=== PATIENT | male | born 1930 | race Caucasian/White ===

== ENCOUNTER 2017-01-17 13:28 | Inpatient (IN) | payer MEDICARE, OTHER ==
[2017-01-17] MEDS ORDERED: NS 0.9% 1000 ML* 1,000 ML IV ONE (13:33)
[2017-01-17] MEDS ORDERED: Dextrose 50% Syringe 50 ML* 25 GM/50 ML SYRINGE IV PUSH ONE (13:35)
[2017-01-17] MEDS ORDERED: Dextrose 50% Syringe 50 ML* 25 GM/50 ML SYRINGE ONE (13:36)
--- NOTE | 2017-01-17 13:54 | RAD ---
INDICATION: Neurologic change. Code briggs. COMPARISON: None TECHNIQUE: Noncontrast axial source images were acquired from the skull base to the vertex. FINDINGS: Ventricles/sulci: There is cortical atrophy with compensatory dilatation of the CSF spaces. Brain parenchyma: There is periventricular and subcortical white matter change compatible with chronic ischemia. Intracranial hemorrhage:None. Extra-axial spaces: There are no abnormal extra axial fluid collections or evidence of extra-axial mass. Calvarium: There is no calvarial fracture or other calvarial abnormality. Scalp: There is no evidence of scalp or extracalvarial soft tissue abnormality. Paranasal sinuses/mastoid: The paranasal sinuses and mastoid air cells are clear. Other: None. IMPRESSION: CORTICAL ATROPHY WITH CHRONIC MICROVASCULAR ISCHEMIC CHANGES. NO ACUTE FINDINGS. Findings called to ED at 1350 hours
[2017-01-17] MEDS ORDERED: Alteplase* 100 MG VIAL ONE (13:56)
[2017-01-17 14:02] LABS: Albumin 4.4 g/dL (3.2-5.2); Calcium 9.9 mg/dL (8.6-10.3); EGFR African American 78.9 (>60); EGFR Non-African American 61.4 (>60); Globulin 3.6 g/dL (2-4); Potassium 4.1 mmol/L (3.5-5.0); Total Bilirubin 0.7 mg/dL (0.2-1.0)
[2017-01-17 14:05] LABS: Troponin I 0.06 ng/mL (<0.04)
[2017-01-17] MEDS ORDERED: Alteplase* 100 MG VIAL IV ONE (14:17)
--- NOTE | 2017-01-17 14:17 | RAD ---
INDICATION: Neurologic changes, code briggs. COMPARISON: Comparison is made with a prior chest x-ray study from January 25, 2009. TECHNIQUE: An AP view of the chest was obtained. FINDINGS: The heart is within normal limits in size. Mediastinal and hilar contours appear within normal limits. The lungs are clear. No pleural effusion is present. IMPRESSION: NO EVIDENCE FOR ACTIVE CARDIOPULMONARY DISEASE.
[2017-01-17] MEDS ORDERED: Alteplase* 50 MG VIAL IV ONE (14:18)
[2017-01-17 14:20] LABS: Hematocrit 45 % (42-52); Hemoglobin 15.3 g/dl (14.0-18.0); Mean Corpuscular HGB Conc 34 g/dl (31-36); Mean Corpuscular Hemoglobin 32 pg (27-31); Mean Corpuscular Volume 92 fL (80-94); Mean Platelet Volume 8 um3 (7.4-10.4); Red Blood Count 4.84 10^6/ul (4.0-5.4); Red Cell Distribution Width 13 % (10.5-15); White Blood Count 5.9 10^3/ul (3.5-10.8)
[2017-01-17 15:14] LABS: Urine Bacteria Absent (Absent); Urine Bilirubin Negative (Negative); Urine Glucose 1+(50 mg/dL) (Negative); Urine Nitrite Negative (Negative)
[2017-01-17] MEDS ORDERED: Iohexol 350* (CONTRAST) 500 ML MDV IV ONE (16:02)
[2017-01-17] MEDS ORDERED: Acetaminophen IV 1GM/100ML * 1,000 MG/100 ML VIAL IVPB PRN (16:30)
[2017-01-17] MEDS ORDERED: Labetalol IV* 5 MG/ML 20 ML VIAL IV PUSH PRN (16:40)
[2017-01-17] MEDS ORDERED: NS 0.45% 1000 ML BAG* 1,000 ML IV SCH (17:00)
--- NOTE | 2017-01-17 17:19 | ED ---
Edgar Tillman Benjamin, scribed for Kendrick Arenas MD on 01/17/17 at 1419 . Altered Mental Status - HPI Summary HPI Summary: 86yo male who reported had sudden onset of AMS, not making sense and slurring some words around 1pm at the parking lot, witnessed by his . Kalpana yadav was called at 1332. Pt denies any TIRADO. Limited HPI pt is in AMS. 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 Hx From Patient Unobtainable Due To: Altered Mental Status Onset/Duration: Suddenly - approx 1300 Character: Confusion Aggravating Factor(s): Nothing Alleviating Factor(s): Nothing Associated Signs And Symptoms: Positive: Negative - Allergies/Home Medications Allergies/Adverse Reactions: Allergies Allergy/AdvReac Type Severity Reaction Status Date / Time No Known Allergies Allergy Verified 01/17/17 13:34 Home Medications: Home Medications Finasteride TAB* [Proscar TAB*] 5 mg PO DAILY 01/17/17 [History Confirmed ] Levothyroxine TAB* [Synthroid TAB*] 75 mcg PO DAILY 01/17/17 [History Confirmed 01/17/17] Lisinopril TAB* [Prinivil TAB*] 10 mg PO DAILY 01/17/17 [History Confirmed 01/17] PMH/Surg Hx/FS Hx/Imm Hx Endocrine/Hematology History: Reports: Hx Thyroid Disease - TAKES RX Cardiovascular History: Reports: Hx Hypertension - TAKES RX GI History: Reports: Hx Gastroesophageal Reflux Disease - TAKES RX Musculoskeletal History: Reports: Hx Arthritis - HIPS, KNEES, GENERALIZED, Other Musculoskeletal History - RIGHT CARPAL TUNNEL Sensory History: Reports: Hx Contacts or Glasses - GLASSES Denies: Hx Hearing Aid Opthamlomology History: Reports: Hx Contacts or Glasses - GLASSES Neurological History: Reports: Other Neuro Impairments/Disorders - RIGHT CARPAL TUNNEL SYNDROME - Surgical History Surgery Procedure, Year, and Place: 2009 BACK SURGERY- [facility]. 1989' LAPAROSCOPIC HERNIA REPAIR- [place]. 1970 VASECTOMY- [place]. 4 ADENOIDECTOMY AND TONSILLECTOMY. [place] [facility] [place]est[place] Reactions: No Infectious Disease History: No Infectious Disease History: Denies: Traveled Outside the [place] in Last 30 Days - Family History Known Family History: Positive: Unknown - LEVEL 5 CAVEAT - AMS - Social History Occupation: Retired Lives: With Family Alcohol Use: Rare Substance Use Type: Reports: None Smoking Status (MU): Former Smoker Review of Systems - ROS Summary Review of Systems Summary: LEVEL 5 CAVEAT - AMS All Other Systems Reviewed And Are Negative: No Physical Exam Triage Information Reviewed: Yes Vital Signs On Initial Exam: Initial Vitals Temp Pulse Resp BP Pulse Ox 97.8 F 75 20 174/89 95 01/17/17 13:30 01/17/17 13:30 01/17/17 13:30 01/17/17 13:30 01/17/17 13:30 Vital Signs Reviewed: Yes Completion Of Physical Exam Limited Due To: Level 5 Appearance: Positive: Well-Appearing, No Pain Distress, Well-Nourished Skin: Positive: Warm, Skin Color Reflects Adequate Perfusion, Dry Head/Face: Positive: Normal Head/Face Inspection Eyes: Positive: Normal ENT: Positive: Normal ENT inspection Neck: Positive: Supple, Nontender Respiratory/Lung Sounds: Positive: Clear to Auscultation, Breath Sounds Present Cardiovascular: Positive: RRR, Pulses are Symmetrical in both Upper and Lower Extremities Abdomen Description: Positive: Nontender, Soft Bowel Sounds: Positive: Present Musculoskeletal: Positive: Strength/ROM Intact Neurological: Positive: Expressive Aphasia, Disoriented. Negative: Sensory/ Motor Intact, Alert, Oriented to Person Place, Time - Romulo Coma Scale Coma Scale Total: 13 Diagnostics - Vital Signs Vital Signs Temp Pulse Resp BP Pulse Ox 01/17/17 13:50 99 01/17/17 13:37 98.1 F 72 20 174/89 95 01/17/17 13:30 97.8 F 75 20 174/89 95 - Laboratory Lab Results: Lab Results 01/17/17 01/17/17 01/17/17 Range/Units 13:34 13:35 13:35 Sodium 138 (133-145) mmol/L Potassium 4.1 (3.5-5.0) mmol/L Chloride 103 (101-111) mmol/L Carbon Dioxide 28 (22-32) mmol/L Anion Gap 7 (2-11) mmol/L BUN 17 (6-24) mg/dL Creatinine 1.13 (0.67-1.17) mg/dL Est GFR ( Amer) 78.9 (>60) Est GFR (Non-Af Amer) 61.4 (>60) BUN/Creatinine Ratio 15.0 (8-20) Glucose 93 (70-100) mg/dL POC Glucose (mg/dL) 64 L (70-100) mg/dL Lactic Acid 1.5 (0.5-2.0) mmol/L Calcium 9.9 (8.6-10.3) mg/dL Total Bilirubin 0.70 (0.2-1.0) mg/dL AST 18 (13-39) U/L ALT 10 (7-52) U/L Alkaline Phosphatase 93 (34-104) U/L Troponin I 0.06 H* (<0.04) ng/mL Total Protein 8.0 (6.4-8.9) g/dL Albumin 4.4 (3.2-5.2) g/dL Globulin 3.6 (2-4) g/dL Albumin/Globulin Ratio 1.2 (1-3) Triglycerides 200 mg/dL Cholesterol 187 mg/dL LDL Cholesterol 121 mg/dL HDL Cholesterol 26.0 mg/dL Result Diagrams: 01/17/17 13:35 01/17/17 13:35 Lab Statement: Any lab studies that have been ordered have been reviewed, and results considered in the medical decision making process. - Radiology CXR Xray Interpretation: No Acute Changes Radiology Interpretation Completed By: Radiologist - ED physician has reviewed this radiology report and agrees. - CT CT Brain WO CT Interpretation: No Acute Changes - IMPRESSION: CORTICAL ATROPHY WITH CHRONIC MICROVASCULAR ISCHEMIC CHANGES. NO ACUTE FINDINGS. Findings called to ED at [address] Interpretation Completed By: Radiologist - ED physician has reviewed this radiology report and agrees. - EKG 1335. Cardiac Rate: NL - 70bpm EKG Rhythm: Sinus Rhythm Ectopy: None EKG Interpretation: Borderline T abnormalities in inferior leads. Altered Mental Statu Course/Dx - Course Course Of Treatment: Reviewed pts medication and allergy lists. Blood pressure noted. Code Yadav called at 1332. Discussed with Dr. Moon (Neurology) at 1337. DR MOON SAW PATIENT IN ED. ADMIT ICU. - Diagnoses Discharge Diagnoses: CVA (cerebral vascular accident) - Critical Care Time Critical Care Time: 30-74 min Discharge - Discharge Plan Condition: Stable Disposition: ADMITTED TO [facility] documentation as recorded by the scribeEdgar Benjamin accurately reflects the service I personally performed and the decisions made by me, Kendrick Arenas MD.
--- NOTE | 2017-01-17 17:28 | RAD ---
HISTORY: Speech difficulty, status post TPA administration COMPARISONS: Head CT dated January 17, 2017 TECHNIQUE: Multiple contiguous axial CT scans were obtained of the head and neck After the administration of nonionic intravenous contrast timed to the systemic arterial phase of contrast enhancement. Coronal and sagittal multiplanar reformations are submitted for review. Multiple 3-D maximum intensity projection reconstructions are also submitted for review. FINDINGS: CTA NECK: AORTIC ARCH: There is a bovine configuration, with the left common carotid artery originating from the brachiocephalic trunk. There is no ostial or proximal stenosis of the cephalic great vessels. The vessels are tortuous. RIGHT VERTEBRAL ARTERY: The right vertebral artery is patent along its course, without stenosis. LEFT VERTEBRAL ARTERY: The left vertebral artery is patent along its course, without stenosis. DOMINANCE: The left vertebral artery is dominant. RIGHT COMMON CAROTID ARTERY: The right common carotid artery is patent. The right carotid bifurcation occurs at C4-C5 RIGHT INTERNAL CAROTID ARTERY: There is atheromatous disease of the right carotid bifurcation, without right internal carotid artery stenosis by NASCET criteria. RIGHT EXTERNAL CAROTID ARTERY: The right external carotid artery is unremarkable. LEFT COMMON CAROTID ARTERY: The left common carotid artery is patent. The left carotid bifurcation occurs at C4 LEFT INTERNAL CAROTID ARTERY: There is atheromatous disease of the left carotid bifurcation, without left internal carotid artery stenosis by NASCET criteria. LEFT EXTERNAL CAROTID ARTERY: The left external carotid artery is unremarkable. VENOUS CIRCULATION: None SALIVARY GLANDS: The parotid glands, submandibular glands, sublingual glands are normal. NASAL CAVITY/NASOPHARYNX: The nasal cavity and nasopharynx are normal. ORAL CAVITY/OROPHARYNX: The oral cavity is obscured by streak artifact from dental amalgam. The visualized oral cavity and oropharynx are unremarkable. LARYNGEAL APPARATUS/HYPOPHARYNX: The laryngeal apparatus and hypopharynx are normal. UPPER AIRWAY/UPPER ESOPHAGUS: The visualized upper airway and esophagus are normal. LUNG APICES: The lung apices are clear. THYROID GLAND: The thyroid gland is diffusely heterogeneous and enlarged. LYMPH NODES: There is no lymphadenopathy by size criteria. BONES AND SOFT TISSUES: Degenerative changes are noted CTA HEAD: INTRACRANIAL CIRCULATION: There is multifocal moderate to severe stenosis of the basilar artery diffusely. Elsewhere, there is no aneurysm, vascular reformation, occlusion, or stenosis of the visualized intracranial reticulation. There is calcification of the cavernous segments of internal carotid arteries. The anterior communicating artery complex is clear. Bilateral posterior communicating arteries are identified. VENOUS CIRCULATION: The venous system is unremarkable. PERFUSION: There is no obvious parenchymal perfusion deficit. HEMORRHAGE/INFARCT: There is no hemorrhage or acute infarct. MASSES/SHIFT: There is no mass or shift. EXTRA-AXIAL SPACES: There are no extra-axial fluid collections. SULCI AND VENTRICLES: The sulci and ventricles are normal in size and position for the patient's stated age. CEREBRUM: There is hypoattenuation of the periventricular and subcortical white matter. BRAINSTEM: There are no focal parenchymal abnormalities. CEREBELLUM: There are no focal parenchymal abnormalities. PARANASAL SINUSES: The paranasal sinuses are clear. ORBITS: The orbits are unremarkable. BONES AND SOFT TISSUE: No bone or soft tissue abnormalities are noted. OTHER: There is no abnormal enhancement. IMPRESSION: 1. ATHEROMATOUS DISEASE. 2. NO INTERNAL CAROTID ARTERY STENOSIS BY NASCET CRITERIA. 3. 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 4. CHRONIC SMALL VESSEL ISCHEMIC CHANGE. 5. HETEROGENEOUS AND ENLARGED THYROID CPT II Codes: 3100F
[2017-01-17] MEDS: Labetalol IV* 5 MG/ML 20 ML VIAL IV PUSH PRN (18:30)
[2017-01-17] MEDS: niCARdipine 0.1MG/ML IVPREMIX* 20 MG/200 ML BAG IV SCH ×2 (18:49→23:07)
--- NOTE | 2017-01-17 22:41 | CONS ---
CONSULTATION REPORT: DATE OF CONSULT: 01/17/17 LOCATION: He is an 86-year-old gentleman currently in the ER to be transferred to the ICU . REASON FOR CONSULT: Acute stroke, status post tPA. HISTORY OF PRESENT ILLNESS: Mr. Hernandez is an 86-year-old gentleman with a history of hypertension, GERD, and some right hip pain, who presented to the hospital at 1 o'clock with acute onset of speech difficulties. His states that they were out this morning visiting some [employer], they were driving. At 1 o'clock, she noticed that he was having difficulty expressing what he wanted to say, he was confused and confabulating some. This did not improve, so she drove in directly to the ER. He arrived at 1330 and a Code Leif was called. He had a CT scan that showed no acute issues. No evidence of hemorrhage. I was called to the ER for further evaluation. At the time that I saw him, his initial NIH Stroke Scale was 7. he received 1 point for level of conscious commands, 2 points for the level of conscious questions, 1 point for visual, 1 point for motor drift in the right leg, 1 point for best language, and 1 point for extinction and inattention. Subsequent NIH done at 02:30, 30 minutes later, he got 2 points for level of consciousness questions, 1 point for visual, 1 point for best language, and 1 point for extinction for a total of 5. At that time, contraindications were reviewed and he had none. There were no exclusion criteria. I had a long discussion with his discussing the risks and benefits of tPA including the risk of bleeding in approximately 6 % of patients who receive the drug, half of these patients with serious bleeding . We discussed the fact that 1 out of every 3 patients given the drug shows improvement in brain function, in the case of a severe stroke or major stroke, 70% risk of bleeding after receiving intravenous tPA. We discussed the fact that research shows that for every 8 patients given the drug , one is spared suffering from severe disability and instead is able to live independently after his/her stroke, 1 in 3 patients given the drug shows improvement in brain function as a result of the drug. The understood the risks and benefits and signed the consent. The patient was unable to consent and tPA was started at 1436. Initial bolus of 7.8 mL was given followed by ____ _ infusion given. An urgent CTA of the head was ordered as well. My suspicion for a large vessel clot at the time of presentation was low given his findings. The patient was to be admitted to the ICU overnight for close monitoring per tPA protocol. PAST MEDICAL HISTORY: As above. PAST SURGICAL HISTORY: He has had right hip replaced. MEDICATIONS: His did not have specific list of medications, but notes that he is on metoprolol, lisinopril, and omeprazole at home. ALLERGIES: He has no known drug allergies. FAMILY HISTORY: Significant for father with lung cancer, sister with lung cancer, and mother with breast cancer. No history of early strokes or heart attacks. SOCIAL HISTORY: He smoked a pipe until he was 29 years old and then stopped, none since. He occasionally drinks wine. 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 REVIEW OF SYSTEMS: Review of systems in 12-organ systems was attempted, the patient was unable to communicate well and unable to answer my questions, but the states that he has not had any major health issues in the last week and has been feeling well otherwise. PHYSICAL EXAM: General: He is a well-nourished, well-developed gentleman, lying in his hospital bed. He is pleasant, well nourished, well groomed. HEENT : He is normocephalic, atraumatic. Sclerae are anicteric. Mucous membranes are moist. Oropharynx is clear. Nares are patent. Neck is supple. No thyromegaly. No carotid bruits. No meningismus. Chest: Clear to auscultation bilaterally. Cardiovascular: Regular rate and rhythm. Abdomen: Nontender and nondistended. Extremities: No clubbing, cyanosis, or edema was noted. His skin was warm and dry. On neurologic exam, he was awake and alert. He was oriented to person. His speech was nonfluent. He had an expressive and receptive aphasia. He was unable to name. He was unable to repeat. He was unable to pantomime. Cranial nerves: His pupils were equal, round, and reactive to light. There appeared to be a partial visual field cut on the right versus neglect. He did not blink to threat on the right in the upper and lower quadrants. He did blink to threat from the left side. Extraocular muscles were intact. Sensation of his face was difficult to assess, but appeared to be intact bilaterally. He did respond at all levels. His face was symmetric. There was no droop in the upper or lower face. His tongue was midline. His oropharynx was clear, palate was symmetric, difficult for him to comply with some of the motor exam. He would not shrug his shoulders or turn his head. His motor exam initially had some very mild drift in the right lower extremity. Subsequent testing showed no drift in all extremities. His strength was good 5/5 throughout. Tone and bulk were both normal. DTRs were 1 + at the biceps and brachioradialis, trace at the patella bilaterally, absent at the ankles, downgoing Babinski. [id number] and rapid alternating movements were difficult to assess, because he was not compliant with the examination, but he did not appear to have any ataxia when moving and at times would reach out for my finger without tremor. Sensation, he did withdraw and grimace to pain in all 4 extremities, but there was neglect on the right side. There was some extinction as well. He had some visual impersistence to the right and did not appear to recognize me on the right side. His gait was not tested at this time. DIAGNOSTIC STUDIES/LAB DATA: He had a CBC with diff that was essentially normal and platelets were 231. PT/INR of 17 and 0.95. His complete metabolic profile was essentially normal. Troponin I was 0.06. LDL cholesterol of 121, but is nonfasting; HDL of 26; cholesterol of 187; triglycerides are 200. Urine showed 1+ protein, 2+ blood, 2+ rbc's, and 1+ glucose. Initially on presentation, his glucose was 64. It subsequently improved to 93 after dextrose was given. He does not have a history of diabetes. CT scan of the head was done. I reviewed the films and the report showed cortical atrophy with chronic microvascular ischemic changes. No acute findings. I agree with those findings. There was no evidence of hemorrhage. ASSESSMENT AND PLAN: Mr. Hernandez is an 86-year-old gentleman, who came into the hospital with significant expressive and receptive aphasia, some neglect on the right side, possibly visual field cut on the right side as well. Initially scored a 7 on his NIH, 30 minutes later a 5, but he continued to have significant speech difficulty. I had a long discussion with the reviewing the risks and benefits of tPA and she agreed to the administration we started the bolus 1 hour and 36 minutes after arrival. CTA of the head was ordered. The patient was admitted to the hospital for additional stroke workup and for close monitoring in the ICU. My plan will be to get an MRI tomorrow afternoon for followup and to better assess the stroke. We will check blood work to rule out reversible causes of stroke. We will get an echocardiogram once he is out of the 24-hour window, we will resume antiplatelet. We will control blood pressure per protocol. Monitor blood sugars, monitor for any temperature elevations. I will continue to follow him closely and make further recommendations as necessary. Thank you for the opportunity to participate in his care. [id number]/[facility] #: [id number] YING
--- NOTE | 2017-01-17 23:56 | HP ---
ADMISSION HISTORY AND PHYSICAL: DATE OF ADMISSION: 01/17/17 ADMISSION DIAGNOSIS: Acute ischemic stroke. HISTORY OF PRESENT ILLNESS: The patient is an 86-year-old white male with a history of hypertension and hypothyroidism, who was brought to the emergency department today approximately 30 minutes after the acute onset of confusion and garbled speech. The patient was seen by the neurology service in the emergency department and was given thrombolytic therapy approximately 1 to 1-1/ 2 hours after the onset of symptoms. Following lytic therapy, the patient was brought to the intensive care unit for further monitoring. NIH stroke scale score was 7 in the emergency department. OUTPATIENT MEDICATIONS: 1. Levothyroxine 75 mcg p.o. daily. 2. Omeprazole 20 mg p.o. daily. 3. Lisinopril 10 mg p.o. daily. 4. Metoprolol 25 mg p.o. daily. 5. Finasteride 5 mg p.o. daily. ALLERGIES: No known drug allergies. REVIEW OF SYSTEMS: Unobtainable. PHYSICAL EXAMINATION GENERAL: On admission to the ICU, the patient was alert and breathing comfortably. VITAL SIGNS: Temperature 98.9 (temporal), blood pressure 148/86, heart rate 70 and regular, respirations 16 per minute and nonlabored, O2 saturation 94% on room air. HEENT: Pupils are mid position and briskly reactive. Corneal intact. Extraocular movements appeared full and there is no facial asymmetry. NECK: Supple and without masses. LUNGS: Clear to auscultation. CARDIAC EXAM: Revealed no murmurs or rubs. ABDOMEN: Nondistended and nontender. EXTREMITIES: Warm without cyanosis or edema. NEUROLOGIC EXAM: Limited neurologic exam. The patient moved all extremities. There was no apparent hemiparesis. Reflexes were down slightly throughout. ADMISSION LABORATORY DATA: Hemoglobin was 15, hematocrit 45, white count of 5.9, platelet count of 231. Electrolytes were normal. Glucose was initially 64 and repeat was 100 after one-half amp of D50. Lactic acid was 1.5. Troponin 0.06. Cholesterol was 187. LDL cholesterol was 121, triglycerides are 200. Albumin 3.6. Chest x-ray showed enlarged cardiac silhouette, but no pulmonary infiltrates. EKG showed no acute ST or T-wave changes. A CT scan of the head showed cortical atrophy with chronic microvascular ischemic changes. There were no acute findings. IMPRESSION: Acute stroke primarily involving speech areas in the left (dominant ) hemisphere, status/post thrombolytic therapy. The patient is hemodynamically and neurologically stable on admission to the ICU. MANAGEMENT PLAN: Standard management post lytic therapy, which includes maintaing BP below 180/100 with labetalol or nicardipine, if needed, aggressive antipyretic therapy to keep body temp below 100, and frequent neurologic checks to evaluate for signs of intracranial hemorrhage. The patient is being followed by the Neurology service. CRITICAL CARE TIME: 60 minutes (not including time spent speaking with family and Neurology consultation). [id number]/[facility] #: [id number] MTDD
[2017-01-18 06:21] LABS: Hematocrit 42 % (42-52); Hemoglobin 14.5 g/dl (14.0-18.0); Mean Corpuscular HGB Conc 34 g/dl (31-36); Mean Corpuscular Hemoglobin 32 pg (27-31); Mean Corpuscular Volume 92 fL (80-94); Mean Platelet Volume 8 um3 (7.4-10.4); Red Blood Count 4.59 10^6/ul (4.0-5.4); Red Cell Distribution Width 14 % (10.5-15); White Blood Count 7.2 10^3/ul (3.5-10.8)
[2017-01-18 06:46] LABS: BUN/Creatinine Ratio 16.3 (8-20); Calcium 9.5 mg/dL (8.6-10.3); EGFR Non-African American 72.3 (>60); Globulin 2.9 g/dL (2-4); Potassium 3.9 mmol/L (3.5-5.0); Total Bilirubin 0.8 mg/dL (0.2-1.0); Total Protein 6.9 g/dL (6.4-8.9)
[2017-01-18] MEDS: Levothyroxine INJ* 100 MCG/5 ML VIAL IV SCH (08:19)
[2017-01-18] MEDS: Labetalol IV* 5 MG/ML 20 ML VIAL IV PUSH PRN (10:38)
[2017-01-18] MEDS ORDERED: Metoprolol Succinate XL TAB* 50 MG PO ONE (10:55)
[2017-01-18] MEDS: Finasteride TAB* 5 MG PO SCH (11:18)
--- NOTE | 2017-01-18 13:23 | PN ---
Critical Care Services: Did well overnight. Did have systolic BPs above 180 mm Hg, and required labetalol and nicardipine for BP control. Mental status unchanged this AM. Vital Signs: Temp Pulse Resp BP SpO2 FiO2 98.3 F 62 18 179/91 96 Physical Exam: Gen:Alert. Does not consistently follow verbal commands. Lungs: clear Extremities: No cynosis or edema. Able to move all extremities equally. Fluid Balance (Past 24 Hours): 01/18/17 06:59 Intake Total 536.3 Output Total 1735 Balance -1198.7 Weight 186 lb Intake: IV Fluids 334 NS (0.45%) 334 Medicated IV 202.3 CC - Nicarpidine/Cardene 202.3 Oral Output: Urine 1060 Subramanian 675 Labs: 01/18/17 01/18/17 01/18/17 05:59 05:59 05:59 WBC 7.2 Hgb 14.5 Hct 42 Plt Count 219 INR (Anticoag Therapy) 1.01 APTT 20.5 L Sodium 140 Potassium 3.9 Chloride 105 Carbon Dioxide 25 Anion Gap 10 BUN 16 Creatinine 0.98 Glucose 125 Calcium 9.5 Total Bilirubin 0.80 AST 19 ALT 10 Alkaline Phosphatase 78 Total Protein 6.9 Albumin 4.0 Globulin 2.9 Albumin/Globulin Ratio 1.4 Studies: MRI (head) scheduled for later today. Nutrition: Oral diet Impression: Global aphasia unchanged since admission, but no further progression of neurologic defects. There has been no evidence of bleeding complications from thrombolysis. Plan: 1. Restart home meds today (especially antihypertensive Rx). 2. Transfer patient out of ICU 3. Physical and occupational therapy consults. Critical Care Time:
[2017-01-18] MEDS ORDERED: Acetaminophen TAB* 325 MG PO PRN (16:18)
--- NOTE | 2017-01-18 16:27 | RAD ---
HISTORY: Status post TPA administration, expressive and receptive aphasia COMPARISONS: Head CT dated January 14, 2017, CT dated January 17, 2017 TECHNIQUE: The following sequences were obtained of the head: Sagittal T1-weighted images, axial T2-weighted images, axial FLAIR images, axial susceptibility weighted images, axial T1-weighted images. Additionally, axial diffusion-weighted images were obtained with calculated apparent diffusion coefficients. FINDINGS: HEMORRHAGE/INFARCT: There is restricted diffusion within the left parietal lobe extending into the posterior temporal lobe, left occipital lobe, and within the right inferior cerebellar hemisphere consistent with subacute nonhemorrhagic infarct. Elsewhere, there is no hemorrhage or acute infarct. MASSES/SHIFT: There is no mass or shift. EXTRA-AXIAL SPACES/MENINGES: There are no extra-axial fluid collections. SULCI AND VENTRICLES: There is diffuse and proportional enlargement of the sulci and ventricles. CEREBRUM: There is diffuse multifocal elevated T2/FLAIR signal in the periventricular and subcortical white matter. There is elevated T2/flair signal corresponding to there is restricted diffusion. BRAINSTEM: There is a chronic lacunar infarct of the left oly. CEREBELLUM: There is elevated T2/flair signal corresponding to the restricted diffusion noted within the right inferior cerebellum. The cerebellar tonsils are normal in size and position. SELLA: The sella is normal. PINEAL: The pineal region is clear. CP ANGLE/TEMPORAL BONES: The labyrinthine structures are grossly normal. VESSELS: Normal flow-voids are noted within the visualized vertebral vasculature. DIFFUSION ABNORMALITIES: As noted above, there is restricted diffusion within the right inferior cerebellum, left occipital lobe, and left parietal lobes and anterior temporal lobe. PARANASAL SINUSES/MASTOIDS: The paranasal sinuses are clear. ORBITS: The orbits are unremarkable. BONES AND SOFT TISSUE: No bone or soft tissue abnormalities are noted. OTHER: None IMPRESSION: 1. SUBACUTE NONHEMORRHAGIC INFARCTS OF THE LEFT PARIETAL LOBE EXTENDING INTO THE POSTERIOR TEMPORAL LOBE, LEFT OCCIPITAL LOBE, AND RIGHT INFERIOR CEREBELLUM. 2. DIFFUSE INVOLUTIONAL CHANGE WITH CHRONIC SMALL VESSEL ISCHEMIC CHANGES
--- NOTE | 2017-01-18 16:51 | PN ---
PROGRESS NOTE: DATE OF PROGRESS NOTE: 01/18/17. LOCATION: He is currently in ICU bed 6. Overnight, Mr. Hernandez did well, although he had to be started on a Cardene drip for elevated blood pressures per protocol. The nurse state that he has had no new neurologic symptoms, although he continues to have speech difficulty, which is largely unchanged from yesterday. He remains pleasant and interactive, but unable to understand completely. He did have a CTA of the head done last night , which showed significant basilar artery stenosis, but no evidence of clot. The family was updated extensively yesterday evening. Vital signs: Heart rate in the 60s, respiratory rate from 19 to 23, O2 saturation 97% and 98%. Early this morning at around 1:39, he had a blood pressure of 203/114, was started on Cardene drip, and since that time his blood pressures have been in the 140 to 160s over 80s to 90s. In general, he is a well-nourished, well-developed gentleman in no acute distress. He does have mitts on his hands. He is pleasant , smiling. HEENT: Normocephalic, atraumatic. Sclerae are anicteric. Mucous membranes are moist. Oropharynx is clear. Nares are patent. Neck: Supple. No thyromegaly. No carotid bruits. Chest: Clear to auscultation bilaterally. Cardiovascular: Regular rate and rhythm. Abdomen: Nontender. Extremities 1+ edema in the lower extremities, nonpitting. On neurologic exam, he is awake. He is alert. He is oriented to person. His speech is fluent, although he does have a receptive aphasia with some mild expressive aphasia as well. Occasionally, he will follow commands, but most of the time does not follow commands. There is no dysarthria, although he has paraphrasic errors consistently. His cranial nerves, pupils are equally round and reactive to light. Extraocular muscles are intact. He blinks to threat on the left. He does not blink to threat on the right. His face is symmetric. His sensation is intact in the face, but it is a difficult exam, because of his inability to express himself. His tongue is midline. The palate is symmetric. He would not do shoulder shrug or head turn despite multiple attempts. His motor exam, he has 5/5 strength throughout. He has no drift in his arms or legs. His tone and bulk are both good. DTRs were 1+ in the upper extremities at the biceps and brachioradialis, 1+ at the patellae, bilaterally absent at the ankles, downgoing Babinski. Sensation very difficult exam. He does withdraw to pain x4 , but it appears that he is neglecting his right side and there may be extinction, although again very difficult. He appears to have some visual neglect as well on exam. Tgbblq-cd-vfol and rapid alternating movements, he would not follow my commands despite multiple attempts and pantomime. There is no tremor. It is obvious. No obvious ataxia. LABORATORY DATA: Lab work this morning includes CBC with diff that was essentially normal. An INR of 1.01, PTT of 20.5. Chemistry, complete metabolic panel with glucose of 125, otherwise normal. The CT angiogram of the head done yesterday at 3:10 showed atheromatous disease. No internal carotid artery stenosis by NASCET criteria, multifocal [id number]-ja-gccisc stenosis of the basal artery, chronic small vessel ischemic change, and heterogenous and enlarged thyroid. I did speak with the radiologist about this yesterday and I looked at the films as well. No evidence of large vessel clot. ASSESSMENT AND PLAN: Mr. Hernandez is an 86-year-old gentleman who presented with acute onset of aphasia and confusion, possibly some right hemineglect, who got tPA yesterday an hour and half after presenting. Subsequent CTA showed no evidence of any clot that would need radiologic intervention. Overnight, in the ICU, his blood pressures have been stable, although he did need Cardene early this morning for elevated blood pressures, but they have since stabilized. TPA protocol is being followed. He is not on any anticoagulants. At this point, we will continue to monitor him closely per protocol. I will get an MRI at the 24-hour rishi and make decisions afterwards. At this point, we will want to keep his blood pressures slightly on the high end. Because of his basilar artery multifocal stenosis, I will worry about flow dependent ischemia with low blood pressures. Speech therapy, we will see him, but at this point, he is swallowing well. He will likely need correction speech therapy for his aphasia. I will continue to follow him closely, make further recommendations as necessary. [id number]/[facility] #: [id number] [facility]
[2017-01-18] MEDS: Enoxaparin(*) 40 MG/0.4 ML SYR SUBCUT SCH (17:59)
[2017-01-18] MEDS ORDERED: Ziprasidone IM INJ* 20 MG/ML VIAL IM ONE ×2 (19:56→21:00)
[2017-01-18] MEDS: Aspirin EC Low Dose* 81 MG TAB.EC PO SCH (22:15)
[2017-01-19] MEDS ORDERED: Ziprasidone IM INJ* 20 MG/ML VIAL IM PRN (01:07)
[2017-01-19] MEDS: Finasteride TAB* 5 MG PO SCH (08:00)
[2017-01-19] MEDS: Aspirin EC Low Dose* 81 MG TAB.EC PO SCH (08:00)
--- NOTE | 2017-01-19 08:44 | PN ---
Progress Note - Progress Note Date of Service: 01/19/17 Note: Addendum to progress note: Given his change in mental status, I am going to get an urgent CT of the head to rule out any hemorrhagic transformation
[2017-01-19] MEDS: Levothyroxine INJ* 100 MCG/5 ML VIAL IV SCH (08:52)
[2017-01-19] MEDS ORDERED: Lisinopril TAB* 10 MG PO SCH (09:00)
--- NOTE | 2017-01-19 10:01 | RAD ---
INDICATION: Change in mental status. Status post TPA CT brain January 17, 2017 COMPARISON: CT brain January 17, 2017; MRI brain January 18, 2017 TECHNIQUE: Noncontrast axial source images were acquired from the skull base to the vertex. FINDINGS: Ventricles/sulci: There is cortical atrophy with compensatory dilatation of the CSF spaces. Brain parenchyma: There is periventricular and subcortical white matter change compatible with chronic ischemia. In addition there is an evolving, nonhemorrhagic, left posterior parietal/occipital infarct with associated mild localized mass effect. There is evolving, nonhemorrhagic right inferior cerebellar infarct Intracranial hemorrhage:None. Extra-axial spaces: There are no abnormal extra axial fluid collections or evidence of extra-axial mass. Calvarium: There is no calvarial fracture or other calvarial abnormality. Scalp: There is no evidence of scalp or extracalvarial soft tissue abnormality. Paranasal sinuses/mastoid: The paranasal sinuses and mastoid air cells are clear. Other: None. IMPRESSION: Chronic microvascular ischemia. Subacute, nonhemorrhagic, left posterior parietal/occipital infarct. Subacute, nonhemorrhagic inferior right cerebellar infarct.
[2017-01-19 10:35] LABS: TSH (Thyroid Stimulating Horm) 0.55 mcIU/mL (0.34-5.60)
[2017-01-19 10:41] LABS: Free T4 1.55 ng/dL (0.61-1.12)
[2017-01-19 10:48] LABS: Folate 10.53 ng/mL (>3.99)
--- NOTE | 2017-01-19 13:57 | PN ---
Subjective Date of Service: 01/19/17 Interval History: HOSPITALIST PROGRESS NOTE Patient seen and examined at bedside. Severe expressive aphasia with notable frustration. Unable to communicate his needs, only "word salad". Can move all 4 ext., but clearly has right neglect. He was agitated and aggressive last night, requiring Geodon. Family History: Unchanged from Admission Social History: Unchanged from Admission Past Medical History: Unchanged from Admission Objective Active Medications: Acetaminophen (Tylenol Tab*) 325 mg PO Q6H PRN PRN Reason: PAIN OR TEMPERATURE Aspirin (Aspirin Ec Low Dose*) 81 mg PO DAILY [facility] Last Admin: 01/19/17 08:00 Dose: 81 mg Atorvastatin Calcium (Lipitor*) 40 mg PO 1700 EUNICE Enoxaparin Sodium (Lovenox(*)) 40 mg SUBCUT Q24H [facility] Last Admin: 01/18/17 17:59 Dose: Not Given Finasteride (Proscar Tab*) 5 mg PO DAILY [facility] Last Admin: 01/19/17 08:00 Dose: 5 mg Famotidine 20 mg/ Sodium (Chloride) 102 mls @ 408 mls/hr IVPB BID [facility] Last Admin: 01/19/17 08:15 Dose: 408 mls/hr Labetalol HCl (Trandate Iv*) 20 mg IV PUSH Q10M PRN PRN Reason: ELEVATED BP - SEE COMMENTS Last Admin: 01/18/17 10:38 Dose: 4 ml Levothyroxine Sodium (Synthroid Inj*) 37.5 mcg IV DAILY [facility] Last Admin: 01/19/17 08:52 Dose: 37.5 mcg Lisinopril (Prinivil Tab*) 10 mg PO DAILY [facility] Last Admin: 01/19/17 08:00 Dose: 10 mg Ziprasidone (Geodon Im Inj*) 10 mg IM ONCE PRN PRN Reason: PROVIDER DISCRETION Last Admin: 01/19/17 06:18 Dose: 10 mg Vital Signs 01/18/17 01/19/17 01/19/17 21:00 04:01 06:29 Temperature 99.2 F Pulse Rate 72 Respiratory 24 22 18 Rate Blood Pressure 152/81 (mmHg) O2 Sat by Pulse 95 Oximetry Oxygen Devices in Use Now: None Appearance: Elderly male sitting up in a chair in [facility], trying to eat lunch. Eyes: No Scleral Icterus Ears/Nose/Mouth/Throat: Mucous Membranes Moist Neck: Trachea Midline Respiratory: Symmetrical Chest Expansion and Respiratory Effort, Clear to Auscultation Cardiovascular: RRR - Normal S1 and S2 Abdominal: NL Sounds; No Tenderness; No Distention Neurological: - - AAOx1 (self), expressive aphasia and dysarthria, right neglect Lines/Tubes/Other Access: Clean, Dry and Intact Peripheral IV Nutrition: Taking PO's Result Diagrams: 01/18/17 05:59 01/18/17 05:59 Assess/Plan/Problems-Billing Assessment: Mr. Hernandez is an 86yo M with PMH of HTN, GERD, who presented to ED with speech difficulties, found to have a CVA, s/p tPA. - Patient Problems (1) CVA (cerebral vascular accident) Comment: - Initial CT brain showed no acute findings. - MRI brain showed subacute non-hemorrhagic infarcts of left parietal lobe, extending into posterior temporal lobe, left occipital lobe, and right inferior cerebellum. - S/p tPA in ED. - CTA head/neck showed no ICA bilaterally, but multifocal moderate to severe stenosis of the basilar artery. - For transthoracic echo with bubble study. - Lipid profile shows LDL 121 - start Atorvastatin. - Continue Aspirin. - Infarcts distribution suggests possibility of embolic source, but no arrhythmias on Telemetry so far. - D/w Neuro - recommended event monitor as outpatient. - Continue Aspirin. - Has PT/OT/Speech needs - PMRU consult requested. - Continue neuro checks. (2) Basilar artery stenosis Comment: - Try to maintain SBP around 150. - Hold Lisinopril for SBP<130. (3) Comment: - Suspect patient has some degree of dementia at baseline and now . Confusion made worse by his frustration with expressive aphasia. - Will try to avoid Haldol/Geodon. - Trial of low dose Seroquel at bedtime and PRN agitation. - Repeat CT brain today showed no bleed. (4) HTN (hypertension) Comment: - Controlled. - Continue Lisinopril with holding parameters. (5) GERD (gastroesophageal reflux disease) Comment: - Resume Omeprazole. (6) Hypothyroidism Comment: - Resume PO levothyroxine. - Check TSH. - Incidental finding on neck CT of heterogenous enlarged thryoid - will need further w/u as outpatient. (7) DVT prophylaxis Comment: - Lovenox. (8) Full code status Status and Disposition: Inpatient requiring >48h for stabilization.
[2017-01-19] MEDS ORDERED: QUEtiapine TAB* 25 MG PO PRN (14:06)
--- NOTE | 2017-01-19 14:10 | ECHO ---
Patient: VENESSA MCDANIEL [facility] Rec#: [id number] : 1930 Date: 01/19/2017 Age: 86y Height: 177.8 cm / 70.0 in Weight: 84.4 kg / 186.0 lbs Sex: M BSA: 2 Room#: 436 Admit Date#: 01/17/2017 Type: Inpatient Referring: Petros Moon Reading: Juan Stein DO [employer] Operator: Kinga Chavez RN RDCS CC: Linda Boo MD Transthoracic Echocardiogram Indication: CVA, S/P tPA BP: 152/81 HR: 65 Rhythm: NSR with PACs Findings History: HTN, hypothyroidism, GERD Technical Comments: The study quality is fair. Completed at 1250. Left Ventricle: The left ventricular chamber size is normal. Mild to moderate concentric left ventricular hypertrophy is observed. Global left ventricular wall motion and contractility are within normal limits. There is normal left ventricular systolic function. The estimated ejection fraction is 60-65%. Abnormal left ventricular diastolic function is observed. The patient was unable to perform a Valsalva maneuver. Left Atrium: The left atrium is mildly dilated. Right Ventricle: The right ventricular chamber size and systolic function are within normal limits. Right Atrium: The right atrium is mildly dilated. The bubble study is negative. A patent foramen ovale is not demonstrated with color Doppler and agitated contrast. Aortic Valve: The aortic valve is trileaflet. There is evidence of aortic sclerosis without stenosis. There is trace to mild aortic regurgitation. Mitral Valve: Mild mitral annular calcification present. The mitral valve leaflets are mildly thickened. There is mild to moderate mitral regurgitation. There is no evidence of mitral stenosis. Tricuspid Valve: The tricuspid valve leaflets are normal. There is mild tricuspid regurgitation. There is evidence of mild pulmonary hypertension. There is no tricuspid stenosis. Pulmonic Valve: The pulmonic valve appears normal. There is mild pulmonic regurgitation. There is no pulmonic stenosis. Pericardium: There is no significant pericardial effusion. A pericardial fat pad is visualized. Aorta: There is mild dilatation of the ascending aorta. The aortic arch is not well visualized. There is no dilation of the aortic root. Pulmonary Artery: The main pulmonary artery is not well visualized. Venous: The inferior vena cava appears normal in size. There is less than 50% respiratory change in the inferior vena cava dimension. Contrast: Normal saline was used as contrast for the bubble study. Images 101 and 102. Conclusions The left ventricular chamber size is normal. Mild to moderate concentric left ventricular hypertrophy is observed. There is normal left ventricular systolic function. The estimated ejection fraction is 60-65%. The left atrium is mildly dilated. The right ventricular chamber size and systolic function are within normal limits. There is mild to moderate mitral regurgitation. There is evidence of mild pulmonary hypertension. The agitated saline "bubble study" is negative. No prior studies available for comparison at time of interpretation Measurements Name Value Normal Range RVDdMajor (2D) 3.4 cm (2.2 - 4.4) RAd ISD 4CH 5.4 cm (3.4 - 4.9) RA (A4C)W 4.3 cm (2.9 - 4.6) IVSd (2D) 1.4 cm (0.6 - 1) LVPWd (2D) 1.4 cm (0.6 - 1) LVIDd (2D) 4 cm (3.6 - 5.4) LVIDs (2D) 2.9 cm - LV FS (2D) 28 % (25 - 45) Aortic Annulus 2.2 cm (1.4 - 2.6) Ao root diameter (2D) 3.3 cm (2.1 - 3.5) Ascending Ao 3.6 cm (2.1 - 3.4) LA dimension (AP) 2D 3.8 cm (2.3 - 3.8) LAd ISD 4CH 5.8 cm (2.9 - 5.3) LA ISD 4CH W 4.6 cm (2.5 - 4.5) Name Value Normal Range LA ESV SP 4CH (A/L) 69 ml - LA ESV SP 2CH (A/L) 45 ml - LA ESV BP (A/L) 65 ml - LA ESV BP (A/L) index 32.2 ml/m2 - LA ESV SP 4CH (MOD) 59 ml - LA ESV SP 2CH (MOD) 44 ml - Name Value Normal Range MV E-wave Vmax 0.82 m/sec - MV deceleration time 238 msec - MV A-wave Vmax 0.59 m/sec - MV E:A ratio 1.4 ratio - LV septal e' Vmax 0.04 m/sec - LV lateral e' Vmax 0.05 m/sec - LV E:e' septal ratio 20.5 ratio - LV E:e' lateral ratio 16.4 ratio - Name Value Normal Range AV Vmax 1.4 m/sec - AV VTI 27.8 cm - AV peak gradient 7.2 mmHg - AV mean gradient 5.2 mmHg - LVOT Vmax 0.86 m/sec - LVOT VTI 18.1 cm - LVOT peak gradient 3 mmHg - LVOT mean gradient 1.6 mmHg - AR PHT 533 msec - Name Value Normal Range TR Vmax 2.8 m/sec - TR peak gradient 31 mmHg - RAP 8 mmHg - RVSP 39 mmHg - IVC diameter 2.1 cm - Name Value Normal Range PV Vmax 0.72 m/sec -
[2017-01-19] MEDS: Enoxaparin(*) 40 MG/0.4 ML SYR SUBCUT SCH (14:38)
[2017-01-19] MEDS: Atorvastatin* 40 MG TAB PO SCH (16:51)
[2017-01-19] MEDS ORDERED: QUEtiapine TAB* 25 MG PO SCH (21:00)
[2017-01-19] MEDS ORDERED: Ziprasidone IM INJ* 20 MG/ML VIAL IM ONE (21:21)
--- NOTE | 2017-01-20 02:39 | PN ---
PROGRESS NOTE: DATE OF PROGRESS NOTE: 01/19/17 LOCATION: He is currently in room 436, bed 1. SUBJECTIVE: The patient became agitated overnight and at times he was belligerent to staff. He tried to pull off his leads, was trying to get up. A bed alarm was placed. He did receive Geodon for his agitation, which seems to have helped. This morning he is better. Last dose was at 6 a.m., it is p.r.n. currently. He continues to have speech difficulties, but may be improving some , overall no new focal findings. OBJECTIVE: Most recent set of vital signs: His temperature is 99.2, pulse rate of 72, respiratory rate of 22, pulse ox is 95%, blood pressure 152/81, pulse 114 at 1 a.m. 71 and 61 at the last two, respiratory rate of 22, O2 saturation 95, blood pressures have ranged in the 144 to 170 range over diastolics in the 80s to 100s. It appears the labetalol was administered yesterday at 1830. In general, he is a well-nourished, well-developed gentleman sitting in his hospital bed. He is pleasant now. HEENT: Normocephalic, atraumatic. Sclerae are anicteric. Mucous membranes are moist. Oropharynx is clear. Nares patent. Neck is supple. No carotid bruits. Chest : Clear to auscultation bilaterally. Cardiovascular is regular rate and rhythm. Abdomen is nontender. Extremities: No edema. Neurologic Exam: He is awake, he is alert, he is confused unable to answer any questions reliably. His speech is fluent, although he has significant expressive and some receptive aphasia. There is no dysarthria present. Cranial nerves II through XII: His pupils are equally round and reactive to light. Visual staton appear compromised. It appears that he has some right visual field loss, although examination is very difficult as he is noncompliant. He did not blink to threat on the right side in all quadrants. His extraocular muscles appear to be intact. Face is symmetric. Tongue is midline. Oropharynx, his palate is symmetric. Motor Exam: Spontaneously moving all extremities antigravity. Good strength 5/5. No drift. Sensation intact to pain x4. Grossly intact to light touch, although difficult examination. Gait: He is walking with assistance, wide based, unsteady. No new lab work today. He did have a brain MRI yesterday, which showed subacute nonhemorrhagic infarct of the left part parietal lobe extending to the posterior temporal lobe, left occipital lobe and right inferior cerebellum, diffuse involutional changes with chronic small vessel ischemic changes. His echocardiogram has not been done at this point. CTA did show significant multifocal basilar stenosis. There was atheromatous disease noted, but no internal carotid artery stenosis by NASCET criteria. The vertebral arteries are patent along their course without stenosis, left vertebral dominant. His LDL is 121, HDL 26, cholesterol 187, triglycerides of 200. ASSESSMENT AND PLAN: Mr. Hernandez is an 86-year-old gentleman who presented with acute stroke. As noted, did receive tPA approximately 1 hour and 40 minutes after stroke onset. He was admitted to the ICU for stroke protocol and had no real improvement in his symptoms and now on the floor. He has been restarted on aspirin. Blood pressures remained elevated. He has been more agitated overnight. 1. We will reinforce use of labetalol p.r.n., although given his basilar stenosis, I do want to maintain some elevation in his blood pressures to prevent hyperperfusion and ischemia. 2. We will order an echocardiogram. 3. Check labs to rule out reversible causes of stroke. 4. Start a statin medication. 5. Use Geodon p.r.n. I suspect that his altered mental status is likely ing as well as the fact that he is frustrated and confused about his speech and we will continue to follow him throughout the day and make adjustments to his medications if necessary. 6. Continue speech therapy, physical therapy. 7. He is on GI and DVT prophylaxis. We will continue to follow him closely. Dr. Conley will be taking over the case today and I will discuss the case with him. [id number]/[facility] #: [id number] [facility]
[2017-01-20] MEDS: Finasteride TAB* 5 MG PO SCH (08:02)
[2017-01-20] MEDS: Omeprazole CAP* 20 MG PO SCH (08:02)
[2017-01-20] MEDS: Levothyroxine TAB* 75 MCG TAB PO SCH (08:02)
[2017-01-20] MEDS: Aspirin EC Low Dose* 81 MG TAB.EC PO SCH (08:02)
[2017-01-20] MEDS: Lisinopril TAB* 10 MG PO SCH (08:03)
--- NOTE | 2017-01-20 13:55 | PN ---
Subjective Date of Service: 01/20/17 Interval History: HOSPITALIST PROGRESS NOTE Patient seen and examined at bedside. Expressive aphasia is unchanged, but he is less agitated today. Family History: Unchanged from Admission Social History: Unchanged from Admission Past Medical History: Unchanged from Admission Objective Active Medications: Acetaminophen (Tylenol Tab*) 325 mg PO Q6H PRN PRN Reason: PAIN OR TEMPERATURE Aspirin (Aspirin Ec Low Dose*) 81 mg PO DAILY [facility] Last Admin: 01/20/17 08:02 Dose: 81 mg Atorvastatin Calcium (Lipitor*) 40 mg PO 1700 [facility] Last Admin: 01/19/17 16:51 Dose: 40 mg Enoxaparin Sodium (Lovenox(*)) 40 mg SUBCUT Q24H [facility] Last Admin: 01/19/17 14:38 Dose: 40 mg Finasteride (Proscar Tab*) 5 mg PO DAILY [facility] Last Admin: 01/20/17 08:02 Dose: 5 mg Levothyroxine Sodium (Synthroid Tab*) 75 mcg PO DAILY@0600 [facility] Last Admin: 01/20/17 08:02 Dose: 75 mcg Lisinopril (Prinivil Tab*) 10 mg PO DAILY [facility] Last Admin: 01/20/17 08:03 Dose: 10 mg Omeprazole (Prilosec Cap*) 20 mg PO DAILY@0600 [facility] Last Admin: 01/20/17 08:02 Dose: 20 mg Quetiapine Fumarate (Seroquel Tab*) 12.5 mg PO TID PRN PRN Reason: AGITATION Quetiapine Fumarate (Seroquel Tab*) 12.5 mg PO 1800 [facility] Vital Signs 01/20/17 01/20/17 01/20/17 00:19 04:34 07:33 Temperature 98.7 F 98.7 F Pulse Rate 68 76 Respiratory 18 18 18 Rate Blood Pressure 146/67 151/80 (mmHg) O2 Sat by Pulse 96 96 Oximetry Oxygen Devices in Use Now: None Appearance: Elderly male lying in bed in [facility]. Eyes: No Scleral Icterus Ears/Nose/Mouth/Throat: Mucous Membranes Moist Neck: Trachea Midline Respiratory: Symmetrical Chest Expansion and Respiratory Effort, Clear to Auscultation Cardiovascular: RRR - Normal S1 and S2 Abdominal: NL Sounds; No Tenderness; No Distention Extremities: No Edema Neurological: - - AAOx1 (self), FRENCH, expressive aphasia, right neglect Lines/Tubes/Other Access: Clean, Dry and Intact Peripheral IV Nutrition: Taking PO's Result Diagrams: 01/18/17 05:59 01/18/17 05:59 Assess/Plan/Problems-Billing Assessment: Mr. Hernandez is an 86yo M with PMH of HTN, GERD, who presented to ED with speech difficulties, found to have a CVA, s/p tPA. - Patient Problems (1) CVA (cerebral vascular accident) Comment: - Initial CT brain showed no acute findings. - MRI brain showed subacute non-hemorrhagic infarcts of left parietal lobe, extending into posterior temporal lobe, left occipital lobe, and right inferior cerebellum. - S/p tPA in ED. - CTA head/neck showed no ICA bilaterally, but multifocal moderate to severe stenosis of the basilar artery. - Transthoracic echo showed EF 60-65% with negative bubble study. - Lipid profile shows LDL 121 - continue Atorvastatin. - Continue Aspirin. - Infarcts distribution suggests possibility of embolic source, but no arrhythmias on Telemetry so far. D/w Neuro - recommended event monitor as outpatient. - Continue Aspirin. - Has PT/OT/Speech needs - PMRU consult requested. - Continue neuro checks. (2) Basilar artery stenosis Comment: - Try to maintain SBP around 150. - Hold Lisinopril for SBP<130. (3) Sundowning Comment: - Suspect patient has some degree of dementia at baseline and now sundowning. Confusion made worse by his frustration with expressive aphasia. - Will try to avoid Haldol/Geodon. - Trial of low dose Seroquel at bedtime and PRN agitation. - Repeat CT brain showed no bleed. (4) HTN (hypertension) Comment: - Controlled. - Continue Lisinopril with holding parameters. (5) GERD (gastroesophageal reflux disease) Comment: - Continue Omeprazole. (6) Hypothyroidism Comment: - Resume PO levothyroxine. - TSH is 0.55. - Incidental finding on neck CT of heterogenous enlarged thryoid - will need further w/u as outpatient. (7) DVT prophylaxis Comment: - Lovenox. (8) Full code status Status and Disposition: Inpatient requiring >48h for stabilization. Son updated at bedside.
[2017-01-20] MEDS ORDERED: QUEtiapine TAB* 25 MG PO SCH (18:00)
[2017-01-20] MEDS: Atorvastatin* 40 MG TAB PO SCH (18:59)
[2017-01-20] MEDS: QUEtiapine TAB* 25 MG PO SCH (18:59)
[2017-01-20] MEDS: Enoxaparin(*) 40 MG/0.4 ML SYR SUBCUT SCH (19:01)
[2017-01-21] MEDS: Levothyroxine TAB* 75 MCG TAB PO SCH (05:50)
[2017-01-21] MEDS: Omeprazole CAP* 20 MG PO SCH (05:50)
[2017-01-21] MEDS: Aspirin EC Low Dose* 81 MG TAB.EC PO SCH (08:21)
[2017-01-21] MEDS: Finasteride TAB* 5 MG PO SCH (08:21)
[2017-01-21] MEDS: Lisinopril TAB* 10 MG PO SCH (08:22)
[2017-01-21] MEDS: Enoxaparin(*) 40 MG/0.4 ML SYR SUBCUT SCH (15:00)
--- NOTE | 2017-01-21 16:36 | PN ---
Subjective Date of Service: 01/21/17 Interval History: HOSPITALIST PROGRESS NOTE Patient seen and examined at bedside. He is good spirits today, able to communicate better, but still with significant expressive aphasia. Family History: Unchanged from Admission Social History: Unchanged from Admission Past Medical History: Unchanged from Admission Objective Active Medications: Acetaminophen (Tylenol Tab*) 325 mg PO Q6H PRN PRN Reason: PAIN OR TEMPERATURE Aspirin (Aspirin Ec Low Dose*) 81 mg PO DAILY [facility] Last Admin: 01/21/17 08:21 Dose: 81 mg Atorvastatin Calcium (Lipitor*) 40 mg PO 1700 [facility] Last Admin: 01/20/17 18:59 Dose: 40 mg Enoxaparin Sodium (Lovenox(*)) 40 mg SUBCUT Q24H [facility] Last Admin: 01/21/17 15:00 Dose: 40 mg Finasteride (Proscar Tab*) 5 mg PO DAILY [facility] Last Admin: 01/21/17 08:21 Dose: 5 mg Levothyroxine Sodium (Synthroid Tab*) 75 mcg PO DAILY@0600 [facility] Last Admin: 01/21/17 05:50 Dose: 75 mcg Lisinopril (Prinivil Tab*) 10 mg PO DAILY [facility] Last Admin: 01/21/17 08:22 Dose: 10 mg Omeprazole (Prilosec Cap*) 20 mg PO DAILY@0600 [facility] Last Admin: 01/21/17 05:50 Dose: 20 mg Quetiapine Fumarate (Seroquel Tab*) 12.5 mg PO TID PRN PRN Reason: AGITATION Quetiapine Fumarate (Seroquel Tab*) 12.5 mg PO 1800 [facility] Last Admin: 01/20/17 18:59 Dose: 12.5 mg Vital Signs 01/21/17 11:40 Temperature 97.3 F Pulse Rate 79 Respiratory 20 Rate Blood Pressure 152/85 (mmHg) O2 Sat by Pulse 98 Oximetry Oxygen Devices in Use Now: None Appearance: Elderly gentleman sitting up in a chair in [facility]. Eyes: No Scleral Icterus Ears/Nose/Mouth/Throat: Mucous Membranes Moist Neck: Trachea Midline Respiratory: Symmetrical Chest Expansion and Respiratory Effort, Clear to Auscultation Cardiovascular: RRR - Normal S1 and S2 Neurological: - - AAox2 (self and place), expressive aphasia, right neglect. Lines/Tubes/Other Access: Clean, Dry and Intact Peripheral IV Nutrition: Taking PO's Result Diagrams: 01/18/17 05:59 01/18/17 05:59 Assess/Plan/Problems-Billing Assessment: Mr. Hernandez is an 86yo M with PMH of HTN, GERD, who presented to ED with speech difficulties, found to have a CVA, s/p tPA. - Patient Problems (1) CVA (cerebral vascular accident) Comment: - Initial CT brain showed no acute findings. - MRI brain showed subacute non-hemorrhagic infarcts of left parietal lobe, extending into posterior temporal lobe, left occipital lobe, and right inferior cerebellum. - S/p tPA in ED. - CTA head/neck showed no ICA bilaterally, but multifocal moderate to severe stenosis of the basilar artery. - Transthoracic echo showed EF 60-65% with negative bubble study. - Lipid profile shows LDL 121 - continue Atorvastatin. - Continue Aspirin. - Infarcts distribution suggests possibility of embolic source, but no arrhythmias on Telemetry so far. D/w Neuro - recommended event monitor as outpatient. - Has PT/OT/Speech needs - PMRU consult requested. - Continue neuro checks. (2) Basilar artery stenosis Comment: - Try to maintain SBP around 150. - Hold Lisinopril for SBP<130. (3) Sundowning Comment: - Suspect patient has some degree of dementia at baseline and now sundowning. Confusion made worse by his frustration with expressive aphasia. - Will try to avoid Haldol/Geodon. - Doing well with low dose Seroquel at bedtime and PRN agitation. - Repeat CT brain showed no bleed. (4) HTN (hypertension) Comment: - Controlled. - Continue Lisinopril with holding parameters. (5) GERD (gastroesophageal reflux disease) Comment: - Continue Omeprazole. (6) Hypothyroidism Comment: - Resume PO levothyroxine. - TSH is 0.55. - Incidental finding on neck CT of heterogenous enlarged thryoid - will need further w/u as outpatient. (7) DVT prophylaxis Comment: - Lovenox. (8) Full code status Status and Disposition: Inpatient requiring >48h for stabilization. Son updated at bedside. Awaiting PMRU decision.
[2017-01-21] MEDS ORDERED: Lisinopril TAB* 10 MG PO SCH (16:38)
[2017-01-21] MEDS: QUEtiapine TAB* 25 MG PO SCH (16:56)
[2017-01-21] MEDS: Atorvastatin* 40 MG TAB PO SCH (16:56)
[2017-01-22] MEDS: Omeprazole CAP* 20 MG PO SCH (05:30)
[2017-01-22] MEDS: Levothyroxine TAB* 75 MCG TAB PO SCH (05:30)
[2017-01-22] MEDS: Aspirin EC Low Dose* 81 MG TAB.EC PO SCH (07:48)
[2017-01-22] MEDS: Finasteride TAB* 5 MG PO SCH (07:49)
[2017-01-22] MEDS ORDERED: QUEtiapine TAB* 25 MG PO PRN (10:47)
--- NOTE | 2017-01-22 10:48 | DCNOTE ---
Subjective Date of Service: 01/22/17 Interval History: No c/o. Family History: Unchanged from Admission Social History: Unchanged from Admission Past Medical History: Unchanged from Admission Objective Active Medications: Acetaminophen (Tylenol Tab*) 325 mg PO Q6H PRN PRN Reason: PAIN OR TEMPERATURE Aspirin (Aspirin Ec Low Dose*) 81 mg PO DAILY [facility] Last Admin: 01/22/17 07:48 Dose: 81 mg Atorvastatin Calcium (Lipitor*) 40 mg PO 1700 [facility] Last Admin: 01/21/17 16:56 Dose: 40 mg Enoxaparin Sodium (Lovenox(*)) 40 mg SUBCUT Q24H [facility] Last Admin: 01/21/17 15:00 Dose: 40 mg Finasteride (Proscar Tab*) 5 mg PO DAILY [facility] Last Admin: 01/22/17 07:49 Dose: 5 mg Levothyroxine Sodium (Synthroid Tab*) 75 mcg PO DAILY@0600 [facility] Last Admin: 01/22/17 05:30 Dose: 75 mcg Lisinopril (Prinivil Tab*) 10 mg PO DAILY [facility] Last Admin: 01/22/17 07:45 Dose: 10 mg Omeprazole (Prilosec Cap*) 20 mg PO DAILY@0600 [facility] Last Admin: 01/22/17 05:30 Dose: 20 mg Quetiapine Fumarate (Seroquel Tab*) 12.5 mg PO TID PRN PRN Reason: AGITATION Quetiapine Fumarate (Seroquel Tab*) 12.5 mg PO 1800 [facility] Last Admin: 01/21/17 16:56 Dose: 12.5 mg Vital Signs 01/21/17 01/21/17 01/21/17 11:40 15:27 19:39 Temperature 97.3 F 97.3 F 98.4 F Pulse Rate 79 84 85 Respiratory 20 18 18 Rate Blood Pressure 152/85 162/89 153/78 (mmHg) O2 Sat by Pulse 98 97 98 Oximetry 01/21/17 01/22/17 01/22/17 20:00 00:06 03:19 Temperature 98.5 F 99.1 F Pulse Rate 78 71 Respiratory 18 20 20 Rate Blood Pressure 137/97 171/89 (mmHg) O2 Sat by Pulse 99 99 Oximetry 01/22/17 01/22/17 01/22/17 03:28 06:56 07:20 Temperature Pulse Rate Respiratory 18 18 Rate Blood Pressure (mmHg) O2 Sat by Pulse 99 Oximetry 01/22/17 07:30 Temperature 98.5 F Pulse Rate 71 Respiratory 12 Rate Blood Pressure 157/101 (mmHg) O2 Sat by Pulse 97 Oximetry Oxygen Devices in Use Now: None Appearance: Alert, partly up in bed. In good spirits. Looks comfortable. Eyes: No Scleral Icterus Ears/Nose/Mouth/Throat: Clear Oropharnyx, Mucous Membranes Moist Neck: NL Appearance and Movements; NL JVP, No Thyroid Enlargement, Masses Respiratory: Symmetrical Chest Expansion and Respiratory Effort, Clear to Auscultation, Clear to Percussion Extremities: No Edema, No Clubbing, Cyanosis, - Skin: No Rash or Ulcers, No Nodules or Sclerosis, - Neurological: NL Sensation - Some difficulty with word-finding but mostly complete sentences. Speech clear. Moves all limbs. No tremor. Result Diagrams: 01/18/17 05:59 01/18/17 05:59 Additional Lab and Data: Lab Results 01/17/17 01/17/17 01/17/17 Range/Units 13:34 13:35 13:35 Sodium 138 (133-145) mmol/L Potassium 4.1 (3.5-5.0) mmol/L Chloride 103 (101-111) mmol/L Carbon Dioxide 28 (22-32) mmol/L Anion Gap 7 (2-11) mmol/L BUN 17 (6-24) mg/dL Creatinine 1.13 (0.67-1.17) mg/dL Est GFR ( Amer) 78.9 (>60) Est GFR (Non-Af Amer) 61.4 (>60) BUN/Creatinine Ratio 15.0 (8-20) Glucose 93 (70-100) mg/dL POC Glucose (mg/dL) 64 L (70-100) mg/dL Lactic Acid 1.5 (0.5-2.0) mmol/L Calcium 9.9 (8.6-10.3) mg/dL Total Bilirubin 0.70 (0.2-1.0) mg/dL AST 18 (13-39) U/L ALT 10 (7-52) U/L Alkaline Phosphatase 93 (34-104) U/L Troponin I 0.06 H* (<0.04) ng/mL Total Protein 8.0 (6.4-8.9) g/dL Albumin 4.4 (3.2-5.2) g/dL Globulin 3.6 (2-4) g/dL Albumin/Globulin Ratio 1.2 (1-3) Triglycerides 200 mg/dL Cholesterol 187 mg/dL LDL Cholesterol 121 mg/dL HDL Cholesterol 26.0 mg/dL Microbiology and Other Data: Microbiology 01/17/17 16:04 Nasal Screen MRSA (PCR)(DANNY) - Final Nasal Mrsa Negative Assess/Plan/Problems-Billing Assessment: Mr. Hernandez is an 86yo M with PMH of HTN, GERD, who presented to ED with speech difficulties, found to have a CVA, s/p tPA. - Patient Problems (1) CVA (cerebral vascular accident) Current Visit: Yes Status: Acute Code(s): I63.9 - CEREBRAL INFARCTION, UNSPECIFIED SNOMED Code(s): 051044338 Comment: - Initial CT brain showed no acute findings. - MRI brain showed subacute non-hemorrhagic infarcts of left parietal lobe, extending into posterior temporal lobe, left occipital lobe, and right inferior cerebellum. - S/p tPA in ED. - CTA head/neck showed no ICA stenosi bilaterally, but multifocal moderate to severe stenosis of the basilar artery. - Transthoracic echo showed EF 60-65% with negative bubble study. - Lipid profile shows LDL 121 - continue Atorvastatin. - Continue Aspirin. - Infarcts distribution suggests possibility of embolic source, but no arrhythmias on Telemetry so far. D/w Neuro - recommended event monitor as outpatient. Discharge to [facility] now. (2) Hypothyroidism Current Visit: Yes Status: Acute Code(s): E03.9 - HYPOTHYROIDISM, UNSPECIFIED SNOMED Code(s): 51754812 Comment: - Resume PO levothyroxine. - TSH is 0.55 01/19/17. - Incidental finding on neck CT of heterogenous enlarged thryoid - consider further w/u as outpatient. (3) GERD (gastroesophageal reflux disease) Current Visit: Yes Status: Acute Code(s): K21.9 - GASTRO-ESOPHAGEAL REFLUX DISEASE WITHOUT ESOPHAGITIS SNOMED Code(s): 934301215 Comment: - Continue Omeprazole. (4) Sundowning Current Visit: Yes Status: Acute Code(s): F05 - DELIRIUM DUE TO KNOWN PHYSIOLOGICAL CONDITION SNOMED Code(s): 057702000 Comment: - Suspect patient has some degree of dementia at baseline and now sundowning. Confusion made worse by his frustration with expressive aphasia. - Will try to avoid Haldol/Geodon. - Doing well with low dose Seroquel at 1800 and PRN agitation. - Repeat CT brain showed no bleed. Status and Disposition: Discharge to [facility] now.
--- NOTE | 2017-01-22 10:52 | PN ---
Progress Note - Progress Note Date of Service: 01/22/17 Note: Time spent on discharge 45 minutes.
[2017-01-22 11:50] VITALS: BP 150/78
--- NOTE | 2017-01-22 23:17 | DS ---
CC: Dr. Linda Boo * DISCHARGE SUMMARY: DATE OF ADMISSION: DATE OF DISCHARGE: 01/22/17 HISTORY: This 86-year-old man presented 30 minutes of the onset of confusion and garbled speech. About one and a half hours after the onset of symptoms, he received TPA. He was monitored in the intensive care unit. Initial NIH stroke scale score was 7 in the emergency room department. The patient did fairly well. I think his aphasic problem has improved somewhat. He had some difficulty with word finding, but was able to say and complete the appropriate sentences most of the time. He is being transferred to the [facility] for rehab. He did have a little bit of sundowning. He was started on quetiapine 12.5 mg scheduled at 6 p.m. and also every 6 hours p.r.n. It seemed to give some benefit. He was evaluated for transthoracic echo and bubble study both of which were unremarkable. CTA of the head did not show any carotid stenosis, did show moderate- to-severe stenosis of the basilar artery. His LDL was 121 here. He was started on atorvastatin. MRI showed subacute nonhemorrhagic infarcts of the left parietal posterior temporal left occipital and right inferior lobes and right inferior cerebellum. His lisinopril was ordered to hold for systolic less than 130. Due to the pattern of his strokes, although no arrhythmias were found, this was still suspicious for an embolic source. The patient have an event monitor or some extended Holter monitoring as an outpatient. FINAL DIAGNOSES: 1. Cerebrovascular accident possible embolic source. 2. Basilar artery stenosis. 3. Sundowning. 4. Hypertension. 5. Gastroesophageal reflux disease. 6. Hypothyroidism. MEDICATIONS ON TRANSFER: 1. Acetaminophen 325 every 6 hours p.r.n. 2. Aspirin 81 mg daily. 3. Atorvastatin 40 mg daily at 5 p.m. 4. Enoxaparin 40 mg subcu every 24 hours. 5. Finasteride 5 mg daily. 6. Levothyroxine 75 mcg daily. 7. Lisinopril 10 mg daily, hold systolic less than 130. 8. Omeprazole 20 mg daily. 9. Quetiapine 25 mg 6 p.m. and every 6 hours p.r.n. [id number]/[facility] #: [id number] [facility]
== END 2017-01-22 12:13 | DRG 62 ==
LOC: ED 13:28 → ICU 15:46 → MEDTELE 01-18 16:14
PROVIDERS: ADMIT Internal Medicine Critical Care Medicine; ATTEND Internal Medicine
DX: I63.9 Cerebral infarction, unspecified (principal); F05 Delirium due to known physiological condition; F03.90 Unspecified dementia, unspecified severity, without behavioral disturbance, psychotic disturbance, mood disturbance, and anxiety; R41.4 Neurologic neglect syndrome; R47.01 Aphasia; I10 Essential (primary) hypertension; K21.9 Gastro-esophageal reflux disease without esophagitis; Z96.641 Presence of right artificial hip joint; R40.2412 Glasgow coma scale score 13-15, at arrival to emergency department; M13.0 Polyarthritis, unspecified; G56.01 Carpal tunnel syndrome, right upper limb; E03.9 Hypothyroidism, unspecified; I65.1 Occlusion and stenosis of basilar artery; R29.707 NIHSS score 7; Z80.3 Family history of malignant neoplasm of breast; Z72.89 Other problems related to lifestyle; Z87.891 Personal history of nicotine dependence; Z98.52 Vasectomy status; Z79.82 Long term (current) use of aspirin; Z79.01 Long term (current) use of anticoagulants; Z80.1 Family history of malignant neoplasm of trachea, bronchus and lung; R45.1 Restlessness and agitation
CPT/HCPCS: 36415; 70450; 70496; 70498; 70551; 71010; 80053; 80061; 81003; 81015; 82607; 82746; 83036; 83090; 83605; 84439; 84443; 84484; 85025; 85610; 85730; 86038; 86850; 86900; 86901; 87641; 93005; 93306; 94760; A9270-GY; G8996-GN-CH; G8997-GN-CH; G8998-GN-CH; J1650; J2997; J3486; Q9967

== ENCOUNTER 2017-01-22 09:30 | Inpatient (IN) | payer MEDICARE, OTHER ==
[2017-01-22] MEDS ORDERED: Acetaminophen TAB* 325 MG PO PRN ×2 (12:50→13:02)
[2017-01-22] MEDS ORDERED: Senna TAB PO PRN (12:50)
[2017-01-22] MEDS ORDERED: Magnesium Hydroxide LIQ* 30 ML UDC PO PRN (12:50)
[2017-01-22] MEDS: Enoxaparin(*) 30 MG/0.3 ML SYR SUBCUT SCH (14:14)
[2017-01-22] MEDS: Atorvastatin* 40 MG TAB PO SCH (17:39)
[2017-01-22] MEDS: QUEtiapine TAB* 25 MG PO SCH (17:39)
[2017-01-22] MEDS: Docusate CAP* 100 MG PO SCH (20:09)
--- NOTE | 2017-01-22 21:17 | HP ---
ADMISSION HISTORY AND PHYSICAL: DATE OF ADMISSION: 01/22/17 REASON FOR ADMISSION: Left-sided CVA with aphasia and right hemiparesis. HISTORY OF PRESENT ILLNESS: Hans Hernandez is an 86-year-old man. He has a medical history significant for hypothyroidism and hypertension. He developed the acute onset of confusion and garbled speech on 01/17/17. He was brought to the emergency department. He was evaluated by Neurology and given TPA. He had a CAT scan of his head that did not show any acute changes initially. He had an initial NIH stroke score of 7. He had an MRI of the brain on 01/18/17. It showed a subacute nonhemorrhagic infarct to the left parietal lobe extending into the posterior temporal lobe, left occipital lobe, and the right inferior cerebellum. Given the multiplicity of the infracts, it was felt that there might be an embolic source. However, he was monitored and no atrial fibrillation was found. He did have an echocardiogram done. That was done on 01/19/17. The echo did not show an embolic source. Ejection fraction was 60% to 65%. His bubble study was negative. The patient did have some problem with nighttime confusion while on the acute service. He was treated with Seroquel, which seemed to help. The patient was felt to have physical therapy, occupational therapy and speech therapy needs. He is now being admitted for inpatient rehab so that he might return to independent living. PAST MEDICAL HISTORY: Significant for the aforementioned hypothyroidism and hypertension. His primary care doctor is Dr. Linda Boo. He also has a history of GERD. CURRENT MEDICATIONS: Include: 1. Baby aspirin once a day. 2. He is on Lipitor. 3. Lovenox for DVT prophylaxis. 4. Proscar. 5. Synthroid. 6. Lisinopril. 7. Prilosec. 8. Seroquel. ALLERGIES: No known drug allergies. SOCIAL HISTORY: He is a nonsmoker, nondrinker. Lives with his in a one- kitty house in the [facility]. REVIEW OF SYSTEMS: The patient reports no current shortness of breath or chest pain PHYSICAL EXAMINATION VITAL SIGNS: The patient's temperature is 98.7, blood pressure is 159/98, pulse 83, respirations 18. HEENT: His extraocular movements are intact. I did not detect a facial palsy. NECK: Supple with no lymphadenopathy. LUNGS: Sounded clear to auscultation bilaterally. HEART: Sounds were regular. S1 and S2 audible. ABDOMEN: Soft and nontender. EXTREMITIES: Showed normal muscle bulk and tone. NEUROLOGIC: The patient was awake, alert, oriented. He did have a lot of difficulty with both receptive and expressive language. He did have trouble following commands as a result. Muscle strength appeared to be close to 4+/5 on the right side and 5/5 on the left. FUNCTIONAL EXAM: The patient transfers with contact guard. ASSESSMENT: Cerebrovascular accident with right hemiparesis and aphasia. PLAN: Integrate him into a comprehensive and therapeutic rehab program with the following goals: 1. Physical Therapy will work with the patient. They are going to work on functional transfer training, ambulation training with a walker. 2. Occupational Therapy will see the patient, work on his activities of daily living including toileting and toilet transfers. 3. Speech Therapy will see the patient. They are going to work on his expressive and receptive aphasia. 4. Lovenox for DVT prophylaxis. 5. SSRIs as indicated. 6. Given the fact that he had multiple small strokes, we will discuss with Neurology about whether to continue aspirin. They have said they want an event monitor after the patient is discharged. 7. environmental services tech will be closely involved to make sure that any services and equipment the patient requires are in place prior to discharge. 8. Family training as appropriate. 9. Stimulants as indicated. 10. Advance directives: The patient is a full code. His is his surrogate discussion maker. 11. Home with appropriate services. ESTIMATED LENGTH OF STAY: 7 to 10 days. [id number]/[facility] #: [id number] YING
[2017-01-23] MEDS: Levothyroxine TAB* 75 MCG TAB PO SCH (06:03)
[2017-01-23] MEDS: Omeprazole CAP* 20 MG PO SCH (06:03)
[2017-01-23] MEDS: Aspirin EC Low Dose* 81 MG TAB.EC PO SCH (10:30)
[2017-01-23] MEDS: Lisinopril TAB* 10 MG PO SCH (10:30)
[2017-01-23] MEDS: Docusate CAP* 100 MG PO SCH ×2 (10:31→19:49)
[2017-01-23] MEDS: Finasteride TAB* 5 MG PO SCH (10:55)
--- NOTE | 2017-01-23 12:32 | PMRUTEAM ---
PMRU: Goals Current Status: Nursing: Current Status Skin Deviations [Right Leg] Other Skin Deviation Description [ Two hard lumps on rodríguez. Skin intact. No tenderness Right Leg] to the touch. Bladder Current Status voiding in br Bowel Current Status bowel meds given Nutrition Current Status appetite good Medication Current Status needs reinforcement Physical Therapy: Current Status Bed Mobility Assistance Min Assist Transfer Moblility Assistance Min Assist Transfer/Bed Mobility None Recommended Devices Ambulation Assistance Min Assist Ambulation Assistive Devices Rolling Walker Rec Therapy: Current Status Summary of Assessment and Pt. was open to conversation. Observed to have a Clinical Impression difficult time finding his words at times and voiced frustration with this. Was able to gather some information about his interests but will re- assess when more appropriate to do so. Pt. was pleasant and cooperative - open to continued visits. Treatment Goals Pt. will engage in leisure activities while on the unit. Treatment Plan Provide RT services and encourage involvement. Re-assess leisure interests and involvement. Social Work: Current Status Discharge Plan return home with home care svs and family support Potential for Family Training pt's and son are involved and attentive Anticipated Discharge Home Destination Discharge With home care svs and family support Nutrition: Current Status Monitoring new adm; dx CVA. Speech: Current Status Assessment Patient demonstrated an increase in accuracy for orientation questions with use of compensatory strategies. He continues to have significant difficulty with word-finding and right visual attention. Patient scored 7/30 on Gilson Cognitive Assessment. He will conitnue to benefit from skilled ROAD PATCHER services for improved safety, function and indpenedence for daily living tasks. OCCUPATIONAL THERAPY: Indep Feeding, Min A UB Dressing, Mod A LB Dressing, CG Toilet transfers, CG Toileting, Min Assit Bathing, CG Shower transfers Goals: Physical Therapy: Initial Goals Bed Mobility Assistance Independent Transfer Mobility Assistance Independent Transfer/Bed Mobility None Recommended Devices Ambulation Independent Ambulation Recommended Devices Rolling Walker,Straight Cane Ambulation Distance 250 Stairs Assistance Independent Stair Recommended Devices One Rail Number of Stairs 12 Physical Therapy: Updated Goals Transfer/Bed Mobility Rolling Walker Recommended Devices Nursing: Goals Bladder Goal independent Bowel Goal independent Nutrition Goal 100% of all meals Medication Goal supervision Nutrition: Goals Intervention Goals TBD Speech: Goals Speech Goal 1 To increase expressive language Speech Evaluation Status Goal 33-100% 1 Speech Current Status Goal 1 33-100% Goal 1 Comments LTO: To express wants/needs/thoughts ST) Patient will complete responsive naming tasks with at least 90% accuracy. Status: Goal not directly targeted this date 2) Patient will complete confrontational naming tasks with at least 90% accuracy. Status: 56% accuracy independently, increasing to 78% with choice x 3 Speech Goal 2 To increase receptive language Speech Goal 2 Evaluation 50-100% Status Speech Goal 2 Current Status 50-100% Speech Goal 2 Comments LTO: To increase receptive language goals. ST) Patient will follow simple and complex commands with at least 90% accuracy. Status: Goal not directly targeted this date Speech Goal 3 Accurate orientation; ongoing evalation of cognitive-linguistic skills Speech Goal 3 Evaluation 0/6 orientation Status Speech Goal 3 Current Status 3/6 orientation Speech Goal 3 Comments LTO: Accurate orientation and increase in right visual attention. Will complete ongoing evaluation of cognitive-linguistic skills as appropriate with update to POC as warranted. ST) Patient will accurately answer orientation questions with 100% accuracy, with use of compensatory strategies as needed Status: Patient stated accurate day of the week, location, and reason for admission with use of compensatory strategies. Incorrect month, year, and date, despite use of calendar. 2) The patient will complete functional right visual attention for reading and writing tasks at 90% accuracy with min cues. Status: Goal not directly targeted this date; educated patient and nursing on keeping call morgan on left for increased safety MoCA completed this date per protocol, patient scored 7/30. Social Work: Goals Discharge Plan return home with home care svs and family support Potential for Family Training pt's and son are involved and attentive Anticipated Discharge Home Destination Discharge With home care svs and family support Care Plan: Care Plan Communication-Improve/Maintain Start: 01/22/17 14:25 Freq: DAILY Status: Active Target: Activity Type Activity Date Activity User E-Sign Co-Sign Detail Recorded Client Recorded Date Recorded By Document 01/23/17 11:18 [id number] 01/23/17 11:19 [id number] 01/23/17 11:18 PMRU Outcome: Communication/Cognitive Status Outcome/Goals Makes Needs Known Effectively Other Other Outcomes/Goals To express wants/needs/ ideas To increase receptive language Accurate orientation Right visual attention Progression Toward Outcomes/Goals Progressing Outcome/Goals Met Comment 56% accuracy for confrontational naming, increasing to 78% given choice x3. 3/6 orientation questions answered accurately with use of calendar. MOCA score = 7/30 Coping/Psych-Improve/Maintain Start: 01/22/17 14:25 Freq: DAILY Status: Active Target: Activity Type Activity Date Activity User E-Sign Co-Sign Detail Recorded Client Recorded Date Recorded By Document 01/23/17 11:13 [id number] 01/23/17 11:24 [id number] 01/23/17 11:13 PMRU Outcome: Coping/Psychosocial Coping Outcome/Goals Verbalization of Acceptance of Rehab Admit Willingness to Participate in Treatment Plan and Basic Needs Psychosocial Outcome/Goals Cooperate/ Participate in Plan Progression Toward Outcome/Goals - Progressing Coping Progression Toward Outcome/Goals - Progressing Psychosocial DVT Prophylaxis- Improve/Maintain Start: 01/22/17 14:25 Freq: DAILY Status: Active Target: Activity Type Activity Date Activity User E-Sign Co-Sign Detail Recorded Client Recorded Date Recorded By Document 01/23/17 11:13 [id number] 01/23/17 11:24 [id number] 01/23/17 11:13 PMRU Outcome: DVT Prophylaxis Outcome/Goals Remains Free of DVT Complies with DVT Prophylaxis /Treatment TEDS Stockings on Every AM, Off at HS Progression Toward Outcome/Goals Progressing Education-Improve/Maintain Start: 01/22/17 14:25 Freq: DAILY Status: Active Target: Activity Type Activity Date Activity User E-Sign Co-Sign Detail Recorded Client Recorded Date Recorded By Document 01/23/17 11:13 [id number] 01/23/17 11:24 [id number] 01/23/17 11:13 PMRU Outcome: Education Outcome/Goals Encourage Questions Progression Toward Outcome/Goals Progressing Medication Administration Start: 01/22/17 14:25 Freq: DAILY Status: Active Target: Activity Type Activity Date Activity User E-Sign Co-Sign Detail Recorded Client Recorded Date Recorded By Document 01/23/17 11:13 [id number] 01/23/17 11:24 [id number] 01/23/17 11:13 PMRU Outcome: Medication Administration Assess Patient Knowledge/Teach Med Yes Education for all Meds Outcome/Goals Demonstrates Understanding Progression Towards Outcome/Goals Progressing Is Patient Going Home on Lovenox? No Mobility- Improve/Maintain Start: 01/23/17 08:55 Freq: DAILY Status: Active Target: Activity Type Activity Date Activity User E-Sign Co-Sign Detail Recorded Client Recorded Date Recorded By Document 01/23/17 08:55 [id number] 01/23/17 08:57 [id number] 01/23/17 08:55 PMRU Outcome: Mobility Physical Therapy Evaluation and Yes Treatment Activity OOB with Assistance Yes WBAT Yes Device Yes Assistance Yes Patient to be seen 5x/wk for 60-120 min/ Therex day for: Mobility Training Gait Training Balance Outcome/Goals Maintain/ Achieve Baseline Mobility Status Improve Mobility Status Demonstrates Proper Use of Assistive Devices Free from Complications of Immobility Bed Mobility Yes Transfers Yes Gait x ft Yes Up/Down Stairs Yes With HEP Yes Neurological- Improve/Maintain Start: 01/22/17 14:25 Freq: DAILY Status: Active Target: Activity Type Activity Date Activity User E-Sign Co-Sign Detail Recorded Client Recorded Date Recorded By Document 01/23/17 11:13 [id number] 01/23/17 11:24 [id number] 01/23/17 11:13 PMRU Outcome: Neurological Weakness/Aphasia Weakness Right Side Weakness/Aphasia Comment patient has word finding difficulties at times. R sided neglect Outcome/Goals Improve Neurological Status Progression Toward Outcome/Goals Progressing Safety- Improve/Maintain Start: 01/22/17 14:25 Freq: DAILY Status: Active Target: Activity Type Activity Date Activity User E-Sign Co-Sign Detail Recorded Client Recorded Date Recorded By Document 01/23/17 11:13 [id number] 01/23/17 11:24 [id number] 01/23/17 11:13 PMRU Outcome: Safety Outcome/Goals Remain Free of Injury or Harm Cooperates with Safety Measures for Least Restrictive Environment Prevent Falls/ Injury Progression Toward Outcome/Goals Progressing Skin- Improve/Maintain Start: 01/22/17 14:25 Freq: DAILY Status: Active Target: Activity Type Activity Date Activity User E-Sign Co-Sign Detail Recorded Client Recorded Date Recorded By Document 01/23/17 11:13 [id number] [id number] 01/23/17 11:24 [id number] 01/23/17 11:13 PMRU Outcome: Skin Skin Risk Level Low Skin Orders Turn/Position q2hr While in Bed Outcome/Goals Maintain/ Improve Skin Intergrity Progression Toward Outcome/Goals Progressing Medicine Note: Length of Stay: 10 days Anticipated Discharge Destination: Home Tentative Discharge Date: 02/02/17 Discharged to: Home
[2017-01-23] MEDS: Enoxaparin(*) 30 MG/0.3 ML SYR SUBCUT SCH (14:24)
[2017-01-23] MEDS: Atorvastatin* 40 MG TAB PO SCH (17:38)
[2017-01-23] MEDS: QUEtiapine TAB* 25 MG PO SCH (17:38)
[2017-01-24] MEDS: Omeprazole CAP* 20 MG PO SCH (05:55)
[2017-01-24] MEDS: Levothyroxine TAB* 75 MCG TAB PO SCH (05:55)
[2017-01-24 06:14] LABS: Hematocrit 40 % (42-52); Hemoglobin 13.9 g/dl (14.0-18.0); Mean Corpuscular HGB Conc 34 g/dl (31-36); Mean Corpuscular Hemoglobin 32 pg (27-31); Mean Corpuscular Volume 92 fL (80-94); Mean Platelet Volume 8 um3 (7.4-10.4); Red Blood Count 4.38 10^6/ul (4.0-5.4); Red Cell Distribution Width 13 % (10.5-15); White Blood Count 5.2 10^3/ul (3.5-10.8)
[2017-01-24 06:30] LABS: Albumin 3.7 g/dL (3.2-5.2); BUN/Creatinine Ratio 18.1 (8-20); Calcium 8.8 mg/dL (8.6-10.3); EGFR African American 97.6 (>60); EGFR Non-African American 75.9 (>60); Globulin 2.6 g/dL (2-4); Potassium 3.7 mmol/L (3.5-5.0); Total Bilirubin 0.7 mg/dL (0.2-1.0); Total Protein 6.3 g/dL (6.4-8.9)
[2017-01-24] MEDS: Lisinopril TAB* 10 MG PO SCH (09:12)
[2017-01-24] MEDS: Docusate CAP* 100 MG PO SCH ×2 (09:13→19:11)
[2017-01-24] MEDS: Finasteride TAB* 5 MG PO SCH (09:13)
[2017-01-24] MEDS: Aspirin EC Low Dose* 81 MG TAB.EC PO SCH (09:13)
[2017-01-24] MEDS: Enoxaparin(*) 30 MG/0.3 ML SYR SUBCUT SCH (14:17)
[2017-01-24] MEDS: QUEtiapine TAB* 25 MG PO SCH (17:07)
[2017-01-24] MEDS: Atorvastatin* 40 MG TAB PO SCH (17:07)
[2017-01-25] MEDS: Levothyroxine TAB* 75 MCG TAB PO SCH (06:09)
[2017-01-25] MEDS: Omeprazole CAP* 20 MG PO SCH (06:09)
[2017-01-25] MEDS: Lisinopril TAB* 10 MG PO SCH (09:13)
[2017-01-25] MEDS: Aspirin EC Low Dose* 81 MG TAB.EC PO SCH (09:13)
[2017-01-25] MEDS: Finasteride TAB* 5 MG PO SCH (09:13)
[2017-01-25] MEDS: Docusate CAP* 100 MG PO SCH ×2 (09:13→19:13)
[2017-01-25] MEDS: Enoxaparin(*) 30 MG/0.3 ML SYR SUBCUT SCH (14:01)
[2017-01-25] MEDS: QUEtiapine TAB* 25 MG PO SCH (17:03)
[2017-01-25] MEDS: Atorvastatin* 40 MG TAB PO SCH (17:04)
[2017-01-26] MEDS: Levothyroxine TAB* 75 MCG TAB PO SCH (04:54)
[2017-01-26] MEDS: Omeprazole CAP* 20 MG PO SCH (04:54)
[2017-01-26] MEDS: Finasteride TAB* 5 MG PO SCH (08:24)
[2017-01-26] MEDS: FLUoxetine CAP* 10 MG PO SCH (08:24)
[2017-01-26] MEDS: Docusate CAP* 100 MG PO SCH ×2 (08:24→20:59)
[2017-01-26] MEDS: Aspirin EC Low Dose* 81 MG TAB.EC PO SCH (08:24)
[2017-01-26] MEDS: Lisinopril TAB* 10 MG PO SCH (08:24)
[2017-01-26] MEDS: Enoxaparin(*) 30 MG/0.3 ML SYR SUBCUT SCH (13:49)
[2017-01-26] MEDS: Atorvastatin* 40 MG TAB PO SCH (17:05)
[2017-01-27] MEDS: Omeprazole CAP* 20 MG PO SCH (06:33)
[2017-01-27] MEDS: Levothyroxine TAB* 75 MCG TAB PO SCH (06:33)
[2017-01-27] MEDS: Docusate CAP* 100 MG PO SCH ×2 (08:08→21:15)
[2017-01-27] MEDS: Metoprolol Succinate XL TAB* 25 MG PO SCH (08:11)
[2017-01-27] MEDS: FLUoxetine CAP* 10 MG PO SCH (08:12)
[2017-01-27] MEDS: Aspirin EC Low Dose* 81 MG TAB.EC PO SCH (08:12)
[2017-01-27] MEDS: Finasteride TAB* 5 MG PO SCH (08:12)
[2017-01-27] MEDS: Lisinopril TAB* 10 MG PO SCH (08:12)
[2017-01-27] MEDS: Enoxaparin(*) 30 MG/0.3 ML SYR SUBCUT SCH (12:58)
[2017-01-27] MEDS: Atorvastatin* 40 MG TAB PO SCH (16:33)
[2017-01-28] MEDS: Omeprazole CAP* 20 MG PO SCH (06:03)
[2017-01-28] MEDS: Levothyroxine TAB* 75 MCG TAB PO SCH (06:03)
[2017-01-28] MEDS: Lisinopril TAB* 10 MG PO SCH (09:16)
[2017-01-28] MEDS: Finasteride TAB* 5 MG PO SCH (09:16)
[2017-01-28] MEDS: Docusate CAP* 100 MG PO SCH ×2 (09:17→20:19)
[2017-01-28] MEDS: Aspirin EC Low Dose* 81 MG TAB.EC PO SCH (09:17)
[2017-01-28] MEDS: FLUoxetine CAP* 20 MG PO SCH (09:18)
[2017-01-28] MEDS: Metoprolol Succinate XL TAB* 25 MG PO SCH (09:22)
[2017-01-28] MEDS: Enoxaparin(*) 30 MG/0.3 ML SYR SUBCUT SCH (13:19)
[2017-01-28] MEDS: Atorvastatin* 40 MG TAB PO SCH (16:27)
[2017-01-29] MEDS: Omeprazole CAP* 20 MG PO SCH (06:18)
[2017-01-29] MEDS: Levothyroxine TAB* 75 MCG TAB PO SCH (06:18)
[2017-01-29] MEDS: Docusate CAP* 100 MG PO SCH ×2 (09:55→20:01)
[2017-01-29] MEDS: Aspirin EC Low Dose* 81 MG TAB.EC PO SCH (09:56)
[2017-01-29] MEDS: FLUoxetine CAP* 20 MG PO SCH (09:56)
[2017-01-29] MEDS: Metoprolol Succinate XL TAB* 25 MG PO SCH (09:56)
[2017-01-29] MEDS: Lisinopril TAB* 10 MG PO SCH (09:56)
[2017-01-29] MEDS: Finasteride TAB* 5 MG PO SCH (09:56)
[2017-01-29] MEDS: Enoxaparin(*) 30 MG/0.3 ML SYR SUBCUT SCH (13:49)
[2017-01-29] MEDS: Atorvastatin* 40 MG TAB PO SCH (17:40)
[2017-01-30] MEDS: Omeprazole CAP* 20 MG PO SCH (05:24)
[2017-01-30] MEDS: Levothyroxine TAB* 75 MCG TAB PO SCH (05:24)
[2017-01-30 07:10] LABS: BUN/Creatinine Ratio 14.2 (8-20); Calcium 8.9 mg/dL (8.6-10.3); EGFR African American 78.9 (>60); EGFR Non-African American 61.4 (>60); Potassium 4.1 mmol/L (3.5-5.0)
[2017-01-30] MEDS: Finasteride TAB* 5 MG PO SCH (09:21)
[2017-01-30] MEDS: Aspirin EC Low Dose* 81 MG TAB.EC PO SCH (09:21)
[2017-01-30] MEDS: Docusate CAP* 100 MG PO SCH ×2 (09:21→19:56)
[2017-01-30] MEDS: Metoprolol Succinate XL TAB* 25 MG PO SCH (09:21)
[2017-01-30] MEDS: FLUoxetine CAP* 20 MG PO SCH (09:21)
[2017-01-30] MEDS: Lisinopril TAB* 10 MG PO SCH (09:21)
--- NOTE | 2017-01-30 12:53 | PMRUTEAM ---
PMRU: Goals Current Status: Nursing: Current Status Skin Deviations [Right Leg] Other Skin Deviation Description [ wnl Right Leg] Bladder Current Status voiding in br Bowel Current Status bowel meds given Nutrition Current Status appetite good Medication Current Status needs reinforcement Physical Therapy: Current Status Bed Mobility Assistance Supervision Transfer Moblility Assistance Supervision Transfer/Bed Mobility Rolling Walker Recommended Devices Ambulation Assistance Supervision Ambulation Assistive Devices Rolling Walker Number of Feet Patient 1000 Ambulated Stairs Assistance Supervision Stairs Recommended Devices Two Rails Number of Stairs 2x5 Occupational Therapy: Current Status Upper Body Dressing Supervision Lower Body Dressing Supervision Bathing Supervision Toileting Supervision Toilet Transfer Supervision Shower Transfer Supervision Eating Independent Rec Therapy: Current Status Summary of Assessment and Pt. was open to conversation. Observed to have a Clinical Impression difficult time finding his words at times and voiced frustration with this. Was able to gather some information about his interests but will re- assess when more appropriate to do so. Pt. was pleasant and cooperative - open to continued visits. Treatment Goals Pt. will engage in leisure activities while on the unit. Treatment Plan Provide RT services and encourage involvement. Re-assess leisure interests and involvement. Social Work: Current Status Discharge Plan return home with home care svs and family support Potential for Family Training pt's and son are involved and attentive Anticipated Discharge Home Destination Discharge With home care svs and family support Nutrition: Current Status Monitoring good po intake since adm, although declined /4 and 4. Ate 100% again this a.m. (regular diet, small portions). Wt is appropriate; skin is intact. BM 9/4. Expressive and receptive aphasia , but no swallowing deficits at this time. Appears to be meeting goals as outlined below. Speech: Current Status Assessment Patient demonstrated an increase in accuracy of 10 % for confrontational naming. Targeted functional task of stating address, phone number, and birthday with index cards, models, and unison speech. He will continue to benefit from skilled HONING MACHINE OPERATOR services for improved safety, function and indpenedence for daily living tasks. Goals: Physical Therapy: Initial Goals Bed Mobility Assistance Independent Transfer Mobility Assistance Independent Transfer/Bed Mobility None Recommended Devices Ambulation Independent Ambulation Recommended Devices Rolling Walker,Straight Cane Ambulation Distance 250 Stairs Assistance Independent Stair Recommended Devices One Rail Number of Stairs 12 Physical Therapy: Updated Goals Transfer/Bed Mobility Rolling Walker Recommended Devices Occupational Therapy: Initial Goals Goals to be Completed in (Days 10-14 ) Upper Body Bathing Routine Independent Lower Body Bathing Routine Modified Independent with Upper Body Dressing Routine Modified Independent with Lower Body Dressing Routine Modified Independent with Toilet Hygeine and Clothing Modified Independent with Management Routine Toilet Transfer Routine Modified Independent with Step-In Shower Transfer Modified Independent with Routine Functional Transfers for ADL Modified Independent with Grooming Routine Independent Feeding Routine Modified Independent with Nursing: Goals Bladder Goal independent Bowel Goal independent Nutrition Goal 100% of all meals Medication Goal supervision Nutrition: Goals Intervention Goals 1. Adequate PO intake to prevent loss of lean body mass 2. Pt will tolerate diet w/o GI distress 3. Maintain regularity of BM w/o constipation (or diarrhea) Speech: Goals Speech Goal 1 To increase expressive language Speech Evaluation Status Goal 33-100% 1 Speech Current Status Goal 1 33-100% Goal 1 Comments LTO: To express wants/needs/thoughts ST) Patient will complete responsive naming tasks with at least 90% accuracy. Status: Goal not directly targeted; data from 01/24: 40% independently; benefits from phrase completion 2) Patient will complete confrontational naming tasks with at least 90% accuracy. Status: 80% accuracy independently *Perseveration and groping noted during naming task* *Targeted stating address, birthday, and phone number via index cards for support. Patient benefited from visual cues of HONING MACHINE OPERATOR's articulators and direct models as well as unison speech. Speech Goal 2 To increase receptive language Speech Goal 2 Evaluation 50-100% Status Speech Goal 2 Current Status 50-100% Speech Goal 2 Comments LTO: To increase receptive language goals. ST) Patient will follow simple and complex commands with at least 90% accuracy. Status: Goal indirectly targeted during language tasks; data from 01/25/17: Complex commands with 0% accuracy, despite moderate verbal cues and models from HONING MACHINE OPERATOR. Patient followed simple commands with 85% accuracy. Speech Goal 3 Accurate orientation; ongoing evalation of cognitive-linguistic skills Speech Goal 3 Evaluation 0/6 orientation Status Speech Goal 3 Current Status 3/6 orientation Speech Goal 3 Comments LTO: Accurate orientation and increase in right visual attention. Will complete ongoing evaluation of cognitive-linguistic skills as appropriate with update to POC as warranted. ST) Patient will accurately answer orientation questions with 100% accuracy, with use of compensatory strategies as needed Status: Patient required use of compensatory strategy via calendar for accurate month, year, day of week, and date. Accurate reason independently, incorrect location. 2) The patient will complete functional right visual attention for reading and writing tasks at 90% accuracy with min cues. Status: Goal indirectly targeted this date via leader writer sitting on right side and presenting stimulus in right visual field. Social Work: Goals Discharge Plan return home with home care svs and family support Potential for Family Training pt's and son are involved and attentive Anticipated Discharge Home Destination Discharge With home care svs and family support Care Plan: Care Plan ADL's - Improve/Maintain Start: 01/23/17 16:20 Freq: DAILY Status: Active Target: Activity Type Activity Date Activity User E-Sign Co-Sign Detail Recorded Client Recorded Date Recorded By Document 01/27/17 09:31 [id number] 01/27/17 09:31 [id number] 01/27/17 09:31 PMRU Outcome: ADL's/ADL Transfers Orders/Interventions Occupational Therapy Evaluation & Treatment Communication Tool in Patient Room Device Yes Address Deficits Secondary To: CVA Patient to receive OT 5x/wk for 60-120 Therex min/day Self Care Management Group Therapy Neuromuscular ReEducation UE/LE ADL's with Assist Yes: Addison ADL Transfers with Assist Yes: Addison Toileting: Transfers,Clothing Management Yes: Addison ,Hygeine w/Assist Light Kitchen/Laundry w/Assist No Progression Toward Outcome/Goals Progressing Outcome/Goals Met Pt is making progress with RUE neuromuscular function demonstrated by his ability to open orange juice and cereal while also being more effecient with his movements during self- feeding. Pt's endurance is improving as demonstrated by his ability to walk to/from the shower and stand for the duration of his bathing. Pt was able to find his room again today, path finding improving slowly. STM deficits and R- neglect are his greatest barriers. Communication-Improve/Maintain Start: 01/22/17 14:25 Freq: DAILY Status: Active Target: Activity Type Activity Date Activity User E-Sign Co-Sign Detail Recorded Client Recorded Date Recorded By Document 01/30/17 12:20 [id number] 01/30/17 12:21 [id number] 01/30/17 12:20 PMRU Outcome: Communication/Cognitive Status Outcome/Goals Makes Needs Known Effectively Other Other Outcomes/Goals To express wants/needs/ ideas To increase receptive language Accurate orientation Right visual attention Progression Toward Outcomes/Goals Progressing Outcome/Goals Met Comment Confrontational naming = 80% accuracy Targeted stating birthday, address, and phone number with use of index cards Coping/Psych-Improve/Maintain Start: 01/22/17 14:25 Freq: DAILY Status: Active Target: Activity Type Activity Date Activity User E-Sign Co-Sign Detail Recorded Client Recorded Date Recorded By Document 01/30/17 10:36 [id number] 01/30/17 10:37 [id number] 01/30/17 10:36 PMRU Outcome: Coping/Psychosocial Coping Outcome/Goals Verbalization of Acceptance of Rehab Admit Willingness to Participate in Treatment Plan and Basic Needs Absence of Destructive Behavior to Self/Others Psychosocial Outcome/Goals Maintain/ Improve Emotional Health Cooperate/ Participate in Plan Progression Toward Outcome/Goals - Progressing Coping Progression Toward Outcome/Goals - Progressing Psychosocial DVT Prophylaxis- Improve/Maintain Start: 01/22/17 14:25 Freq: DAILY Status: Active Target: Activity Type Activity Date Activity User E-Sign Co-Sign Detail Recorded Client Recorded Date Recorded By Document 01/30/17 10:36 [id number] 01/30/17 10:37 [id number] 01/30/17 10:36 PMRU Outcome: DVT Prophylaxis Outcome/Goals Remains Free of DVT Complies with DVT Prophylaxis /Treatment TEDS Stockings on Every AM, Off at HS Progression Toward Outcome/Goals Progressing Discharge Planning - Improve/Maintain Start: 01/22/17 14:25 Freq: DAILY Status: Active Target: Activity Type Activity Date Activity User E-Sign Co-Sign Detail Recorded Client Recorded Date Recorded By Document 01/30/17 10:36 [id number] 01/30/17 10:37 [id number] 01/30/17 10:36 PMRU Outcome: Discharge Planning Identify Patient Needs yes Update Patient Family No Outcome/Goals Demonstrates Understanding of Discharge Plan Homecare Referral - See Comment Progression Toward Outcome/Goals Progressing Education-Improve/Maintain Start: 01/22/17 14:25 Freq: DAILY Status: Active Target: Activity Type Activity Date Activity User E-Sign Co-Sign Detail Recorded Client Recorded Date Recorded By Document 01/30/17 10:36 [id number] 01/30/17 10:37 [id number] 01/30/17 10:36 PMRU Outcome: Education Outcome/Goals Encourage Questions Progression Toward Outcome/Goals Progressing Medication Administration Start: 01/22/17 14:25 Freq: DAILY Status: Active Target: Activity Type Activity Date Activity User E-Sign Co-Sign Detail Recorded Client Recorded Date Recorded By Document 01/30/17 10:36 [id number] 01/30/17 10:37 [id number] 01/30/17 10:36 PMRU Outcome: Medication Administration Assess Patient Knowledge/Teach Med Yes Education for all Meds Outcome/Goals Demonstrates Understanding Progression Towards Outcome/Goals Progressing Is Patient Going Home on Lovenox? No Mobility- Improve/Maintain Start: 01/23/17 08:55 Freq: DAILY Status: Active Target: Activity Type Activity Date Activity User E-Sign Co-Sign Detail Recorded Client Recorded Date Recorded By Document 01/27/17 18:02 [id number] 01/27/17 18:02 [id number] 01/27/17 18:02 PMRU Outcome: Mobility Physical Therapy Evaluation and Yes Treatment Activity OOB with Assistance Yes WBAT Yes Device Yes Assistance Yes Patient to be seen 5x/wk for 60-120 min/ Therex day for: Mobility Training Gait Training Balance Outcome/Goals Maintain/ Achieve Baseline Mobility Status Improve Mobility Status Demonstrates Proper Use of Assistive Devices Free from Complications of Immobility Progression Toward Outcome/Goals Progressing Bed Mobility Yes Transfers Yes Gait x ft Yes Up/Down Stairs Yes With HEP Yes Neurological- Improve/Maintain Start: 01/22/17 14:25 Freq: DAILY Status: Active Target: Activity Type Activity Date Activity User E-Sign Co-Sign Detail Recorded Client Recorded Date Recorded By Document 01/30/17 10:36 [id number] 01/30/17 10:37 [id number] 01/30/17 10:36 PMRU Outcome: Neurological Weakness/Aphasia Weakness Right Side Weakness/Aphasia Comment Pt has difficulties finding words at times. R sided neglect Outcome/Goals Improve Neurological Status Progression Toward Outcome/Goals Progressing Safety- Improve/Maintain Start: 01/22/17 14:25 Freq: DAILY Status: Active Target: Activity Type Activity Date Activity User E-Sign Co-Sign Detail Recorded Client Recorded Date Recorded By Document 01/30/17 10:36 [id number] 01/30/17 10:37 [id number] 01/30/17 10:36 PMRU Outcome: Safety Outcome/Goals Remain Free of Injury or Harm Cooperates with Safety Measures for Least Restrictive Environment Prevent Falls/ Injury Progression Toward Outcome/Goals Progressing Outcome/Goals Met Comment Pa in place Skin- Improve/Maintain Start: 01/22/17 14:25 Freq: DAILY Status: Active Target: Activity Type Activity Date Activity User E-Sign Co-Sign Detail Recorded Client Recorded Date Recorded By Document 01/30/17 10:36 [id number] 01/30/17 10:37 [id number] 01/30/17 10:36 PMRU Outcome: Skin Skin Risk Level Low Skin Orders Turn/Position q2hr While in Bed Outcome/Goals Maintain/ Improve Skin Intergrity Progression Toward Outcome/Goals Progressing Medicine Note: Length of Stay: 3 days Anticipated Discharge Destination: Home Tentative Discharge Date: 02/02/17 Discharged to: home
[2017-01-30] MEDS: Enoxaparin(*) 30 MG/0.3 ML SYR SUBCUT SCH (13:55)
[2017-01-30] MEDS: Atorvastatin* 40 MG TAB PO SCH (17:21)
[2017-01-31] MEDS: Omeprazole CAP* 20 MG PO SCH (05:35)
[2017-01-31] MEDS: Levothyroxine TAB* 75 MCG TAB PO SCH (05:35)
[2017-01-31 07:12] LABS: Hematocrit 40 % (42-52); Hemoglobin 13.6 g/dl (14.0-18.0); Mean Corpuscular HGB Conc 34 g/dl (31-36); Mean Corpuscular Hemoglobin 31 pg (27-31); Mean Corpuscular Volume 92 fL (80-94); Mean Platelet Volume 8 um3 (7.4-10.4); Red Blood Count 4.33 10^6/ul (4.0-5.4); Red Cell Distribution Width 14 % (10.5-15); White Blood Count 5.7 10^3/ul (3.5-10.8)
[2017-01-31 07:29] LABS: Albumin 3.3 g/dL (3.2-5.2); Calcium 8.9 mg/dL (8.6-10.3); EGFR African American 78.1 (>60); EGFR Non-African American 60.8 (>60); Globulin 2.8 g/dL (2-4); Potassium 4.1 mmol/L (3.5-5.0); Total Bilirubin 0.6 mg/dL (0.2-1.0); Total Protein 6.1 g/dL (6.4-8.9)
[2017-01-31] MEDS: Aspirin EC Low Dose* 81 MG TAB.EC PO SCH (09:08)
[2017-01-31] MEDS: Lisinopril TAB* 10 MG PO SCH (09:08)
[2017-01-31] MEDS: Metoprolol Succinate XL TAB* 25 MG PO SCH (09:09)
[2017-01-31] MEDS: Docusate CAP* 100 MG PO SCH ×2 (09:09→19:19)
[2017-01-31] MEDS: FLUoxetine CAP* 20 MG PO SCH (09:09)
[2017-01-31] MEDS: Finasteride TAB* 5 MG PO SCH (09:10)
[2017-01-31] MEDS: Enoxaparin(*) 30 MG/0.3 ML SYR SUBCUT SCH (13:41)
[2017-01-31] MEDS: Atorvastatin* 40 MG TAB PO SCH (16:38)
[2017-02-01] MEDS: Levothyroxine TAB* 75 MCG TAB PO SCH (06:00)
[2017-02-01] MEDS: Omeprazole CAP* 20 MG PO SCH (06:00)
[2017-02-01] MEDS: FLUoxetine CAP* 20 MG PO SCH (08:23)
[2017-02-01] MEDS: Aspirin EC Low Dose* 81 MG TAB.EC PO SCH (08:23)
[2017-02-01] MEDS: Metoprolol Succinate XL TAB* 25 MG PO SCH (08:23)
[2017-02-01] MEDS: Finasteride TAB* 5 MG PO SCH (08:23)
[2017-02-01] MEDS: Docusate CAP* 100 MG PO SCH ×2 (08:23→20:15)
[2017-02-01] MEDS: Lisinopril TAB* 10 MG PO SCH (08:23)
[2017-02-01] MEDS: Enoxaparin(*) 30 MG/0.3 ML SYR SUBCUT SCH (14:07)
[2017-02-01] MEDS: Atorvastatin* 40 MG TAB PO SCH (17:13)
[2017-02-02] MEDS: Omeprazole CAP* 20 MG PO SCH (05:34)
[2017-02-02] MEDS: Levothyroxine TAB* 75 MCG TAB PO SCH (05:34)
[2017-02-02 05:35] VITALS: BP 153/76
[2017-02-02] MEDS: FLUoxetine CAP* 20 MG PO SCH (08:25)
[2017-02-02] MEDS: Finasteride TAB* 5 MG PO SCH (08:25)
[2017-02-02] MEDS: Metoprolol Succinate XL TAB* 25 MG PO SCH (08:25)
[2017-02-02] MEDS: Aspirin EC Low Dose* 81 MG TAB.EC PO SCH (08:25)
[2017-02-02] MEDS: Lisinopril TAB* 10 MG PO SCH (08:25)
[2017-02-02] MEDS: Docusate CAP* 100 MG PO SCH (08:27)
--- NOTE | 2017-02-03 02:25 | DS ---
CC: Dr. Linda Ruff REHABILITATION DISCHARGE SUMMARY: DATE OF ADMISSION: 01/22/17 DATE OF DISCHARGE: 02/02/17 PRIMARY CARE PROVIDER: Dr. Linda Ruff. REASON FOR ADMISSION: Left-sided CVA with aphasia and right hemiparesis. HISTORY OF PRESENT ILLNESS: For full details of this acute hospitalization leading up to his admission, please see the note dictated by Dr. Silva on . HOSPITAL COURSE: During his time on the [facility], his aphasia improved and he seemed to have good resolution of any right-sided weakness. He was started on fluoxetine and seemed to tolerate this. Initially, he was on Seroquel for agitation, but that was stopped on 01/26/17 and he seemed to do well. His medications for hypertension were reintroduced. He remained medically stable during his stay. He participated well with Physical Therapy and at the time of discharge was independent with bed mobility. He requires supervision of one for transfers and to ambulate for 150 feet using a 2-wheeled walker. He requires supervision to contact guard assist for 12 steps using 1 or 2 rails. He also required supervision for his home exercise program. His has been trained to supervise him. He participated well with Occupational Therapy and at the time of discharge, required setup to open containers and cupped foods with extra time to eat. He requires distant supervision with a walker for bathing and tub transfers. For dressing, he requires setup supervision and a minimum amount of assistance for fasteners as needed. He requires distant supervision with a walker for toileting and toilet transfers. He requires assistance for medications, cooking, cleaning, and driving. Once again, his was trained to assist him. He was seen by Speech Therapy as well. He is noted to have a [id number] receptive and expressive aphasia and has worked on following one-step directions and confrontation naming. His swallowing is within functional limits. He has moderate apraxia of speech. He has worked on stating his personal information with models and visual cues. He has mild short- term memory difficulties and difficulty with orientation. It is recommended that he has assistance with medication management and orientation. He should continue with speech, PT, and OT after discharge. DISCHARGE CONDITION: Good. DISCHARGE DISPOSITION: Home with his support. DISCHARGE MEDICATIONS: 1. Aspirin 81 mg q. day. 2. Atorvastatin 40 mg q.p.m. 3. Proscar 5 mg q. day. 4. Fluoxetine 20 mg q. day. 5. Levothyroxine 75 mcg q. day. 6. Lisinopril 10 mg q. day. 7. Metoprolol XL 25 mg q. day. 8. Omeprazole 20 mg q. day. FOLLOWUP: 1. Referral has been sent to [facility] for skilled services as well as PT, OT, and speech. 2. He should follow up with his primary care provider, Dr. Linda Ruff, in 1 to 2 weeks. His stroke included multiple areas of his brain, both on the right and left side, and given the multiplicity of the infarcts, it was felt there may be an embolic source. No atrial fibrillation was found during his acute hospital stay, but it has been recommended that as an outpatient, he have a Holter monitor to further evaluate a possible need for anticoagulation. DISCHARGE DIAGNOSES: 1. 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 2. Hypothyroidism. 3. Hypertension. 4. Gastroesophageal reflux disease. [id number]/[facility] #: [id number] MTDD
== END 2017-02-02 11:30 | disposition home health service (06) | DRG 57 ==
LOC: PMRU 12:31
PROVIDERS: ADMIT Physical Medicine & Rehabilitation; ATTEND Physical Medicine & Rehabilitation
PROC: F07Z5ZZ Bed Mobility Treatment (ICD-10-PCS; principal; 2017-01-22)
PROC: F07Z9ZZ Gait Training/Functional Ambulation Treatment (ICD-10-PCS; 2017-01-22)
PROC: F07Z8ZZ Transfer Training Treatment (ICD-10-PCS; 2017-01-22)
PROC: F08Z0ZZ Bathing/Showering Techniques Treatment (ICD-10-PCS; 2017-01-22)
PROC: F08Z1ZZ Dressing Techniques Treatment (ICD-10-PCS; 2017-01-22)
PROC: F08Z3ZZ Feeding/Eating Treatment (ICD-10-PCS; 2017-01-22)
PROC: F06Z3ZZ Aphasia Treatment (ICD-10-PCS; 2017-01-22)
DX: I69.354 Hemiplegia and hemiparesis following cerebral infarction affecting left non-dominant side (principal); I69.320 Aphasia following cerebral infarction; I10 Essential (primary) hypertension; E03.9 Hypothyroidism, unspecified; K21.9 Gastro-esophageal reflux disease without esophagitis; Z79.82 Long term (current) use of aspirin; Z79.899 Other long term (current) drug therapy
CPT/HCPCS: 36415; 80048; 80053; 85025; 97112; A9270-GY; J1650

== ENCOUNTER 2017-05-22 11:52 | Observation (INO) | payer MEDICARE, BC, OTHER ==
[2017-05-22 13:16] LABS: ABS Basophils 0 10^3/ul (0-0.2); ABS Eosinophils 0.1 10^3/ul (0-0.6); ABS Lymphocytes 0.8 10^3/ul (1.0-4.8); ABS Monocytes 0.7 10^3/ul (0-0.8); ABS Neutrophils 4.6 10^3/ul (1.5-7.7); ABS Nucleated RBC 0.01 10^3/ul; Eosinophil % 1.7 % (0-6); Hematocrit 44 % (42-52); Lymphocyte % 12.5 % (25-47); Mean Corpuscular HGB Conc 35 g/dl (31-36); Mean Corpuscular Hemoglobin 32 pg (27-31); Mean Corpuscular Volume 93 fL (80-94); Mean Platelet Volume 8 um3 (7.4-10.4); Nucleated Red Blood Cells % 0.1; Platelet Count 198 10^3/ul (150-450); Red Blood Count 4.68 10^6/ul (4.0-5.4); Red Cell Distribution Width 13 % (10.5-15); White Blood Count 6.3 10^3/ul (3.5-10.8)
[2017-05-22 13:31] LABS: EGFR Non-African American 68.2 (>60)
[2017-05-22 13:49] LABS: INR 1.02 (0.77-1.02)
[2017-05-22] MEDS ORDERED: Iodixanol* (CONTRAST) 320 MG/ML 100 ML SDV IV ONE (14:05)
[2017-05-22] MEDS: NS 0.9% 1000 ML* 1,000 ML IV SCH ×2 (14:50→18:22)
[2017-05-22 14:56] LABS: Urine Appearance Clear; Urine Blood 2+ (Negative); Urine Color Yellow; Urine Ketones Negative (Negative); Urine Protein Negative (Negative); Urine Specific Gravity 1.008 (1.010-1.030); Urine Urobilinogen Negative (Negative)
--- NOTE | 2017-05-22 15:44 | RAD ---
INDICATION: Confusion, urinary incontinence. COMPARISON: Comparison is made with a prior CT of the brain from January 19, 2017 and a prior MRI of brain from March 07, 2017. TECHNIQUE: Contiguous axial sections of the brain were obtained from the skull base to the vertex without contrast. FINDINGS: The ventricles, cisterns and sulci are enlarged consistent with diffuse atrophy. There are multiple focal areas of decreased density in the subcortical and periventricular white matter suggestive of moderate to severe chronic small vessel ischemic changes. In addition there are moderate-sized areas of encephalomalacia present in the left posterior parietal lobe and left medial occipital lobe consistent with old infarcts. No other focal abnormality or mass effect is seen. No hemorrhage is noted. No significant focal osseous abnormality is seen. The visualized portion of the paranasal sinuses and mastoid air cells appear clear. IMPRESSION: 1. OLD LEFT PARIETAL AND OCCIPITAL LOBE INFARCTS. 2. ATROPHY AND FINDINGS MOST CONSISTENT WITH MODERATE TO SEVERE CHRONIC SMALL VESSEL ISCHEMIC CHANGES.
--- NOTE | 2017-05-22 15:55 | RAD ---
INDICATION: Lower abdominal pain and weakness. COMPARISON: There are no prior studies available for comparison. TECHNIQUE: A CT scan of the abdomen and pelvis was performed with intravenous and oral contrast following intravenous injection of 100 ml of Visipaque 320 nonionic contrast. Contiguous axial sections were obtained from the lung bases through the symphysis pubis. Images were reconstructed in the coronal and sagittal planes. FINDINGS: There is an infiltrate in the left lower lobe partially visualized on this study. No pleural effusion is present. The liver is normal in size without significant focal abnormality. No calcified gallstones are seen. The pancreas appears to be within normal limits. The spleen is mildly enlarged. There is a small hypodense 1 cm lesion in the inferior aspect of the spleen no other focal abnormalities are seen. The kidneys and adrenal glands are normal in size. No hydronephrosis is seen. No significant focal renal abnormality is seen. No bladder wall mass is seen. The prostate gland is enlarged measuring 6.0 cm in transverse dimension. The aorta is normal in caliber with mild calcific plaque present. No significant enlarged retroperitoneal lymph nodes are seen. There is a small to moderate size hiatal hernia. The stomach, small and large bowel appear nondistended. The appendix is within normal limits. There is mild descending and sigmoid diverticulosis without evidence for diverticulitis. There is no evidence for colitis. There is a small periumbilical hernia containing fat. There is also a left inguinal hernia containing fat. No free intraperitoneal air or fluid is seen. The patient is status post total right hip replacement surgery. No other significant focal osseous normality is seen. IMPRESSION: 1. LEFT LOWER LOBE INFILTRATE. 2. NO EVIDENCE FOR ACUTE FINDING IN THE ABDOMEN. 3. MILD SPLENOMEGALY. 4. SMALL PERIUMBILICAL AND LEFT INGUINAL HERNIAS CONTAINING FAT. 5. ENLARGED PROSTATE GLAND.
[2017-05-22] MEDS ORDERED: Lisinopril TAB* 10 MG PO ONE (17:21)
--- NOTE | 2017-05-22 17:53 | RAD ---
INDICATION: Pneumonia evaluation. COMPARISON: Comparison is made with a prior chest x-ray study from January 17, 2017. TECHNIQUE: A portable view of the chest was obtained. FINDINGS: Cardiac and mediastinal contours appear to be within normal limits. The lungs are underinflated. There is a small infiltrate at the left lung base. No pleural effusion is seen. IMPRESSION: LOW LUNG VOLUMES, SMALL LEFT BASILAR INFILTRATE.
[2017-05-22] MEDS: hydrALAZINE IV* 20 MG/ML VIAL IV SLOW PU PRN (18:22)
[2017-05-22] MEDS ORDERED: Azithromycin IV(*) 500 MG in D5W 250 ML BAG* 250 ML IVPB SCH (18:30)
--- NOTE | 2017-05-22 18:33 | ED ---
Jesica Tillman Abhishek, scribed for Kendrick Arenas MD on 05/22/17 at 1328 . Complex/Multi-Sys Presentation - HPI Summary HPI Summary: This patient is a 87 year old M presenting to [facility] accompanied by male and female with a chief complaint of confusion. The confusion stated to be both physical and mental according to the patients family member. Pt is not aware of why he is here. He was walking with a cane then showed signs of weakness and then began walking with a walker. Patients family member reports pt has been sleeping more and lost fair amount of strength. He lives on his own with . When pts son attempts to help pt move, the pt expresses pain. Multiple falls are reported Fell on night, other minor falls. night fell on a rug. Inability to get out of bed. Lost control of urine on the way to the bathroom one occurrence and has not happened since. Pts family member reports weakness, however, patient states there is no weakness in legs and just uses less of his arms. Old man and just ready to quit. The patient rates the pain 0 /10 in severity. Symptoms aggravated by nothing. Symptoms alleviated by nothing. Patients family members reports hip/abd pain. - History Of Current Complaint Chief Complaint: EDGeneral Time Seen by Provider: 05/22/17 11:56 Hx Obtained From: Patient, Family/Travel Professional Onset/Duration: Still Present Timing: Constant Location: Pain At: - hip and abd Associated Signs And Symptoms: Positive: Confusion, Weakness, Abdominal Pain, Other - hip pain - Allergies/Home Medications Allergies/Adverse Reactions: Allergies Allergy/AdvReac Type Severity Reaction Status Date / Time No Known Allergies Allergy Verified 03/07/17 09:50 Home Medications: Home Medications Synthroid TAB* 50 mcg PO EVERY OTHER DAY 05/22/17 [History Confirmed 05/22/17] PMH/Surg Hx/FS Hx/Imm Hx Endocrine/Hematology History: Reports: Hx Thyroid Disease - hypothyroidism Denies: Hx Diabetes Cardiovascular History: Reports: Hx Hypertension, Other Cardiovascular Problems/ Disorders - basal artery stenosis Denies: Hx Pacemaker/ICD Respiratory History: Denies: Hx Chronic Obstructive Pulmonary Disease (COPD) GI History: Reports: Hx Gastroesophageal Reflux Disease - TAKES RX History: Reports: Hx Benign Prostatic Hyperplasia Denies: Hx Dialysis, Hx Renal Disease Musculoskeletal History: Reports: Hx Arthritis - HIPS, KNEES, GENERALIZED, Other Musculoskeletal History - RIGHT CARPAL TUNNEL Sensory History: Reports: Hx Contacts or Glasses, Hx Hearing Problem - NOATAK Denies: Hx Hearing Aid Opthamlomology History: Reports: Hx Contacts or Glasses Neurological History: Reports: Other Neuro Impairments/Disorders - RIGHT CARPAL TUNNEL SYNDROME Denies: Hx Dementia Psychiatric History: Denies: Hx Panic Disorder - Cancer History Cancer Type, Location and Year: SKIN - Surgical History Surgery Procedure, Year, and Place: [place] [facility]AR[place]- [place], [place]. 1969 VASECTOMY- [place]. 1953 ADENOIDECTOMY AND TONSILLECTOMY. 2010 RIGHT TOTAL HIP REPLACEMENT[place] [facility] skin biopsy and surgeries (5-6) Hx Anesthesia Reactions: No Infectious Disease History: No Infectious Disease History: Denies: Traveled Outside the [place] in Last 30 Days - Family History Known Family History: Positive: Other - Negative cancer and GERD Negative: Cardiac Disease, Diabetes - Social History Occupation: Retired Lives: With Family Alcohol Use: Occasionally Substance Use Type: Reports: None Smoking Status (MU): Former Smoker Type: Cigarettes Review of Systems Constitutional: Negative Eyes: Negative ENT: Negative Cardiovascular: Negative Respiratory: Negative Positive: Abdominal Pain Genitourinary: Negative Positive: Myalgia - hip pain Neurological: Other - confusion, poor motor control Positive: Weakness Psychological: Normal All Other Systems Reviewed And Are Negative: Yes Physical Exam - Summary Physical Exam Summary: General: well-appearing, no pain distress Skin: warm, color reflects adequate perfusion, dry Head: normal Eyes: EOMI, BENJIE ENT: normal Neck: supple, nontender Respiratory: CTA, breath sounds present Cardiovascular: RRR Abdomen: soft, nontender Bowel: present Musculoskeletal: normal, strength/ROM intact Neurological: Neuro exam of his lower legs, Pt appears to have difficulty understand instructions, Strength is 5/5, No sensation deficit Psychological: confusion which is chronic Triage Information Reviewed: Yes Vital Signs On Initial Exam: Initial Vitals BP 177/84 05/22/17 12:05 Vital Signs Reviewed: Yes - [place] Coma Scale Coma Scale Total: 15 Diagnostics - Vital Signs Vital Signs Temp Pulse Resp BP Pulse Ox 05/22/17 12:35 94 05/22/17 12:30 63 178/91 92 05/22/17 12:08 99.4 F 63 16 177/84 94 05/22/17 12:07 93 05/22/17 12:05 177/84 - Laboratory Lab Results: Lab Results 05/22/17 Range/Units 13:05 WBC 6.3 (3.5-10.8) 10^3/ul RBC 4.68 (4.0-5.4) 10^6/ul Hgb 15.0 (14.0-18.0) g/dl Hct 44 (42-52) % MCV 93 (80-94) fL MCH 32 H (27-31) pg MCHC 35 (31-36) g/dl RDW 13 (10.5-15) % Plt Count 198 (150-450) 10^3/ul MPV 8 (7.4-10.4) um3 Neut % (Auto) 73.6 (38-83) % Lymph % (Auto) 12.5 L (25-47) % [place] % (Auto) 11.4 H (1-9) % Eos % (Auto) 1.7 (0-6) % Baso % (Auto) 0.8 (0-2) % Absolute Neuts (auto) 4.6 (1.5-7.7) 10^3/ul Absolute Lymphs (auto) 0.8 L (1.0-4.8) 10^3/ul Absolute Monos (auto) 0.7 (0-0.8) 10^3/ul Absolute Eos (auto) 0.1 (0-0.6) 10^3/ul Absolute Basos (auto) 0 (0-0.2) 10^3/ul Absolute Nucleated RBC 0.01 10^3/ul Nucleated RBC % 0.1 Result Diagrams: 05/22/17 13:05 05/22/17 13:05 Lab Statement: Any lab studies that have been ordered have been reviewed, and results considered in the medical decision making process. - CT CT A/P CT Interpretation Completed By: Radiologist - Ct A/P reveals 1. LEFT LOWER LOBE INFILTRATE. 2. NO EVIDENCE FOR ACUTE FINDING IN THE ABDOMEN. 3. MILD SPLENOMEGALY. 4. SMALL PERIUMBILICAL AND LEFT INGUINAL HERNIAS CONTAINING FAT. 5. ENLARGED PROSTATE GLAND. ED physician has reviewed this radiology report. Brain CT CT Interpretation Completed By: Radiologist - Brain CT reveals 1. OLD LEFT PARIETAL AND OCCIPITAL LOBE INFARCTS. 2. ATROPHY AND FINDINGS MOST CONSISTENT WITH MODERATE TO SEVERE CHRONIC SMALL VESSEL ISCHEMIC CHANGES. ED physician has reviewed this radiology report. - EKG 1316 EKG Rhythm: Sinus Rhythm - [address] Segment: Normal EKG Interpretation: No ectopy. Prolonged MO interval 217 Complex Multi-Symp Course/Dx Course Of Treatment: DISCUSSED WITH DR VERA, NEUROLOGY. ADMIT HOSPITALIST. CRITICAL CARE TIME LESS THAN 30 MINUTES. - Diagnoses Provider Diagnoses: Confusion, Weakness, Abdominal pain, Urinary incontinence Discharge - Discharge Plan Condition: Stable Disposition: ADMITTED TO [facility] documentation as recorded by the Jesica summers Abhishek accurately reflects the service I personally performed and the decisions made by me, Kendrick Arenas MD.
[2017-05-22] MEDS ORDERED: cefTRIAXone(*) 1 GM in D5W 50 ML BAG* 50 ML IVPB SCH (20:00)
--- NOTE | 2017-05-22 21:18 | RAD ---
INDICATION: Weakness. COMPARISON: There are no prior studies available for comparison. TECHNIQUE: Axial T2 and sagittal T1 and T2 and coronal T2-weighted images of the cervical spine were obtained. FINDINGS: The vertebra are in normal alignment. No fracture is seen. There is fusion of the C5 and C6 vertebral bodies. The craniocervical junction is within normal limits. The spinal cord is normal in shape and signal intensity. At the C2-C3 level there is mild posterior uncinate process spurring and hypertrophic changes within the facet joints. No significant spinal canal narrowing is present. There is moderate bilateral neural foraminal narrowing. At the C3-C4 level there is posterior uncinate process spurring associated with a mild broad-based disc bulge which is most prominent posterior laterally toward the left side. There is mild to moderate spinal canal narrowing. There is moderate to severe bilateral neural foraminal narrowing. At the C4-C5 level there is mild posterior uncinate process spurring which causes mild spinal canal narrowing. There are mild hypertrophic changes within the facet joints. There is moderate to severe bilateral neural foraminal narrowing. At the C5-C6 level there is fusion of the vertebral bodies. There is mild posterior uncinate process spurring. There is mild spinal canal narrowing and moderate bilateral neural foraminal narrowing. At the C6-C7 level there is moderate posterior uncinate process spurring. There is moderate spinal canal narrowing. There is moderate to severe neural foraminal narrowing on the right side and moderate neural frontal narrowing on the left side. IMPRESSION: MODERATE TO SEVERE CERVICAL SPONDYLOSIS.
--- NOTE | 2017-05-22 23:31 | HP ---
HISTORY AND PHYSICAL: ADDENDUM: Mr. Hernandez is an 87-year-old male with history of stroke in December of 2016 with residual mixed aphasia and one-sided weakness, who presented with unsteady gait and urinary retention. The neurologist's saw the patient in consultation and recommended MRI of the spine. The patient's family is currently inclined more towards palliative care and social help at home. The patient is going to be admitted for further workup. For further details of the patient's presentation and plan, please see history and physical dictated by Kendrick May on 04/22/17 with which I agree. [id number]/[facility] #: [id number] MTDD
--- NOTE | 2017-05-23 03:09 | PN ---
Progress Note - Progress Note Date of Service: 05/23/17 Note: Cross cover note: Bladder scans causing significant anxiety and agitation overnight. Last scan at 2200 75ml Discontinue additional scans Restart in the AM if needed
--- NOTE | 2017-05-23 04:56 | HP ---
ATTENDING PROVIDER ADDENDUM NOW INCLUDED ON THIS REPORT CC: Dr. Linda Ruff * ADMISSION HISTORY AND PHYSICAL: DATE OF ADMISSION: 05/22/17 PRIMARY CARE DOCTOR: Dr. Linda Ruff MY ATTENDING WHILE IN THE HOSPITAL: Dr. Lucita Candelario.* (DICTATED BY ASHLEY AGUIRRE) CHIEF COMPLAINT: Weakness for 3 days. HISTORY OF PRESENT ILLNESS: The patient is an 87-year-old male with a past medical history significant for hypertension, CVA, hypothyroidism, BPH, and GERD who was admitted to this institution from 01/17/17, was given tPA for an acute stroke and was admitted PMRU, on 01/22/17, where he improved greatly and was discharged home on 02/02/17. Most of this history is from the patient's and son who live with him or nearby and are related intimately aware of his situation. They said this all started last night, 05/17/17 when the patient was getting out of bed and fell onto the carpeted area without any apparent injury and was able to get up by himself. Patient was then fine in his baseline for a couple of days, but developed difficulty with walking. Patient was also incontinent of urine a couple of times because he was unable to go to the bathroom. Patient states he was dizzy upon sitting up. Family states they did not take his blood pressure at home. Patient's blood pressure was taken most recently at his primary care provider's office one week ago and it was normal. Patient had no recent changes in his diet or his medications. Patient's blood pressure was significantly elevated on admission to emergency department. Patient also has a nonproductive cough, which is worse when he is lying down in bed. The cough did not produce anything, no hemoptysis. Patient' s mental status is generally fluctuating but currently per the family is pretty much at baseline. Patient is cooperative and alert during the interview but has difficulty following directions and expressing himself. Patient's family denies any dysphagia or coughing. The patient had a previous swallow eval. The patient has not had any subjective fevers. The family does not take his temperature at home. Family and patient are very adamant that they do not want any invasive procedures done and that they just want the patient to be comfortable at home for the end of his life. PAST MEDICAL HISTORY: 1. Hypertension. 2. Hypothyroidism. 3. BPH. 4. CVA in December of this year. 5. GERD. ALLERGIES: No known allergies. MEDICATIONS: 1. Aspirin 81 mg p.o. 2. Lipitor 40 mg p.o. daily. 3. Proscar 5 mg p.o. daily. 4. Fluoxetine 20 mg p.o. daily. 5. Levothyroxine 30 micrograms every other day. 6. Levothyroxine 75 micrograms every other day. 7. Lisinopril 10 mg p.o. daily. 8. Toprol 25 mg p.o. daily. 9. Omeprazole 20 mg p.o. daily. FAMILY HISTORY: No family history of CAD, stroke, or diabetes. Patient has a strong family history for lung cancer in both his brother and a sister and a stomach cancer in another of his sisters. SOCIAL HISTORY: Patient used to smoke a pipe, but quit over 50 years ago. Patient drinks rare alcohol. Patient has never had illicit drugs. 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 Patient is now retired. Patient is , has 4 children. Patient's healthcare proxy is his So Hernandez. Secondarily his healthcare proxy is Ivis Cast who is his eldest daughter. REVIEW OF SYSTEMS: A 14-point review of systems was reviewed and negative except as stated above. PHYSICAL EXAMINATION GENERAL: The patient is an 87-year-old male who appears his stated age and sitting comfortably in the bed, in no acute distress. VITAL SIGNS: Temperature 99.4, pulse rate 63, respiratory rate is 16, oxygen saturation 94% on room air, blood pressure 197/92. Patient's highest pressure was 209/89. HEENT: Head normocephalic, atraumatic. Sclerae anicteric. No conjunctival injection. Nasal mucosa is moist. Oral mucosa is moist. No pharyngeal erythema. NECK: Supple. Nontender. No lymphadenopathy. No tenderness over the cervical spinous processes. No carotid bruits auscultated. LUNGS: There are significant rhonchi in the bilateral lower lobes. There are no other adventitious lung sounds. Good air exchange bilaterally. No accessory muscle use. CARDIOVASCULAR EXAM: Regular rate and rhythm. No clicks, murmurs, gallops, or rubs. Pulses 2+ in bilateral dorsalis pedis, posterior tibialis and radial areas. No edema. ABDOMEN: Soft, nontender, nondistended. Bowel sounds present and normoactive in all 4 quadrants. No hepatosplenomegaly, no abdominal bruits auscultated. GENITOURINARY: No suprapubic tenderness or CVA tenderness. SKIN: Clean, dry and intact. No rash. NEURO: Cranial nerves II through XII intact. Proposal Review Analyst strength 4/5 on the right side, 5/5 on the left side. All other muscle groups including muscle groups in the distal and proximal areas of the upper and lower extremities 5/5 strength bilaterally. Reflexes 1+ in the bilateral biceps, patellar and Achilles areas. Babinski is downgoing bilaterally. Patient is unable to cooperate with cerebellar testing due to receptive aphasia. Patient had a positive straight leg raise on the right, but was unable to clarifies symptom except that it originates in his back and short down his leg. The patient was able to stand with assistance but this was very painful for the patient and the family requested that this is not to be repeated. PSYCHIATRIC: Pleasant and cooperative. LABORATORY DATA: White blood cell count 6.3, hemoglobin 15.0, hematocrit 44, MCV 93, MCH 32, platelet count 198. INR 1.02. APTT 32.3. Sodium 135, potassium 3.9, chloride 101, carbon dioxide 28, anion gap 6, BUN 14, creatinine 1.03, glucose 126, lactic acid 1.6, calcium 9.3, magnesium 1.9, bilirubin 1.0, AST 17, ALT 10, alkaline phosphatase 103, ammonia 39, creatinine kinase 87, troponin I 0.12, CRP 17.73, BNP 129, total protein 7.1, albumin 3.9, globulin 3.2, lipase 23, TSH 0.45. Urine shows 2+ blood, 2+ red blood cells. Urine toxicology shows nothing detected. STUDIES: Brain CT read as old left parietal occipital lobe infract and atrophy findings most consistent with mild to severe chronic small vessel ischemic changes. Abdomen and pelvis CT read as left lower lobe infiltrate. No evidence for acute finding in the abdomen. Mild splenomegaly. Small periumbilical and left inguinal hernia containing fat, enlarged prostate gland. Electrocardiogram shows normal sinus rhythm. No ST segment abnormalities, inverted T-waves in V1, prolonged WI interval. Probable left ventricular hypertrophy. No other abnormalities. Chest x-ray read as low lung volumes, small left basilar infiltrate. IMPRESSION: Patient is an 87-year-old male with past medical history significant for cerebrovascular accident,early this year, hypertension, hypothyroidism, benign prostatic hypertrophy, and gastroesophageal reflux disease who presents to the hospital with several days of weakness after a fall and is interested mainly in being comfortable and returning home. 1. Weakness. The patient's weakness is of unknown origin and has been gradual over several days following a fall. Patient has a positive straight leg raise on the right indicating possible lumbar radiculopathy. Patient may also have a progressive cervical myelopathy. Appreciate Neurology input. We will order MRI of the cervical and lumbar spine, though family is not interested in surgical intervention or intensive physical therapy at this time. Patient has no other signs of infection or other causes of weakness. Creatinine phosphokinase is pending at this time. This does not appear to be a recurrent stroke. We will consider brain MRI if current workup is negative and the patient does not improve. Again, patient is not interested in any intensive intervention. We will have Physical Therapy evaluate the patient. 2. Probable pneumonia. Patient has slightly elevated temperature, nonproductive cough and a basilar infiltrate on chest x-ray. We will treat patient for community acquired pneumonia as this may be contributing to patient' s weakness. 3. Hypertensive Urgency. Patient's blood pressure is significantly elevated with 2 systolic readings greater than 200. Patient is on lisinopril and metoprolol at home. We will increase patient's lisinopril, we will give an extra dose now and increase in patient's dose to 20 mg p.o. daily in the morning. Patient also has hydralazine 5 mg IV slow push available for systolic blood pressures greater than 170. Patient had a Troponin I of .12 likely due to demand ischemia. Patient and family want no intensive intervention and patient has no chest pain or EKG changes consistent with MN. 3. Hypothyroidism. Patient recently had his levothyroxine decreased to 50 micrograms and 75 micrograms on alternating days. Patient will receive 62 micrograms p.o. daily while in the hospital. 4. Benign prostatic hypertrophy. Patient is on Proscar at home and does now have signs of urinary tract infection. Patient had a bladder scan while in the emergency department that showed 391 mL and after which the patient voided and had 225 mL. We will continue to monitor with bladder scans for urinary retention and insert a Subramanian as needed, but will not do so at this time due to patient's desire for comfort. 5. Anxiety and depression. Patient is on fluoxetine. Patient had behavioral disturbances and new onset mood disorder after his stroke. We will continue with fluoxetine as patient is euthymic at this time. 6. Gastroesophageal reflux disease. Continue omeprazole. 7. Palliative care. Family and the patient are most interested in palliative care in this hospitalization. Patient is interested in extra help at home. We will obtain a palliative care consult. Avoid excessive needle sticks and aggressive interventions at this time. 8. FEN: The patient will be on a regular unrestricted diet. Patient is able to eat and drink without difficulty. We will hold off on intravenous fluid. The patient already received 1 L and did not appear to be dehydrated. 9. DVT prophylaxis: Will be deferred at this time due to patient's desire for palliative care. 10. Code status: Patient would like to be a DNR. Patient's healthcare proxy is his So Hernandez and daughter Ivis Cast as above. 11. Disposition: Patient was admitted for observation with an estimated length of stay 1 day. TIME SPENT: Approximately 60 minutes was spent on this admission, 45 of which was spent [id number] with the patient obtaining history and physical and discussing treatment plan with the family. This plan has been discussed with my attending, Dr. Lucita Candelario and she is in agreement with the above. ASHLEY AGUIRRE ADDENDUM: Mr. Hernandez is an 87-year-old male with history of stroke in December of 2016 with residual mixed aphasia and one-sided weakness, who presented with unsteady gait and urinary retention. The neurologist's saw the patient in consultation and recommended MRI of the spine. The patient's family is currently inclined more towards palliative care and social help at home. The patient is going to be admitted for further workup. For further details of the patient's presentation and plan, please see history and physical dictated by Kendrick May on with which I agree. LUCITA CANDELARIO MD [id number]/CPS #: [id number]/CPS #: [id number] [facility]
[2017-05-23 05:50] LABS: ABS Basophils 0 10^3/ul (0-0.2); ABS Eosinophils 0.1 10^3/ul (0-0.6); ABS Lymphocytes 0.9 10^3/ul (1.0-4.8); ABS Monocytes 0.7 10^3/ul (0-0.8); ABS Neutrophils 5.2 10^3/ul (1.5-7.7); ABS Nucleated RBC 0 10^3/ul; Eosinophil % 1.3 % (0-6); Hematocrit 40 % (42-52); Hemoglobin 14.1 g/dl (14.0-18.0); Lymphocyte % 13.3 % (25-47); Mean Corpuscular HGB Conc 35 g/dl (31-36); Mean Corpuscular Hemoglobin 32 pg (27-31); Mean Corpuscular Volume 91 fL (80-94); Mean Platelet Volume 8 um3 (7.4-10.4); Nucleated Red Blood Cells % 0; Platelet Count 193 10^3/ul (150-450); Red Blood Count 4.37 10^6/ul (4.0-5.4); Red Cell Distribution Width 13 % (10.5-15); White Blood Count 6.9 10^3/ul (3.5-10.8)
[2017-05-23] MEDS ORDERED: Levothyroxine TAB* 125 MCG TAB PO SCH (06:00)
[2017-05-23 06:05] LABS: EGFR Non-African American 79.6 (>60)
[2017-05-23] MEDS ORDERED: Magnesium Sulfate 2 GM IV* 2 GM/50 ML BAG IVPB ONE (07:02)
[2017-05-23] MEDS ORDERED: Omeprazole CAP* 20 MG PO SCH (07:30)
[2017-05-23] MEDS ORDERED: cefTRIAXone(*) 1 GM in NS 0.9% 50 ML* 50 ML IVPB SCH ×4 (08:37→20:00)
[2017-05-23] MEDS ORDERED: FLUoxetine CAP* 20 MG PO SCH (09:00)
[2017-05-23] MEDS ORDERED: Finasteride TAB* 5 MG PO SCH (09:00)
[2017-05-23] MEDS ORDERED: Lisinopril TAB* 10 MG PO SCH ×2 (09:00)
[2017-05-23] MEDS ORDERED: Aspirin EC Low Dose* 81 MG TAB.EC PO SCH (09:00)
[2017-05-23] MEDS ORDERED: Metoprolol Succinate XL TAB* 25 MG PO SCH (09:00)
[2017-05-23] MEDS: hydrALAZINE IV* 20 MG/ML VIAL IV SLOW PU PRN (09:34)
[2017-05-23] MEDS ORDERED: Azithromycin IV(*) 500 MG in NS 0.9% 250 ML* 250 ML IVPB SCH ×2 (09:48→18:30)
--- NOTE | 2017-05-23 10:45 | RAD ---
Indication: Leg weakness. Incontinence. Image Sequences: Sagittal T1, T2, STIR, axial T1 and T2-weighted images of the lumbar spine were obtained. Vertebral bodies appear normal in height. Incidental hemangioma is noted in the L1 vertebra. At L5-S1, there is degenerative disc disease present. Broad-based protrusion flattens the thecal sac. Bilateral foraminal stenosis is noted. Moderate degree of facet arthropathy is noted. At L4-5, degenerative disc disease with broad-based protrusion slightly asymmetric towards the right impinging upon the right exiting nerve root. Moderate facet hypertrophy is noted. At L3-4, degenerative disc disease with broad-based protrusion flattening the thecal sac. Left facet and ligamentous hypertrophy is noted. Mild left foraminal stenosis is noted. At L2-3, spondylitic ridge flattens the thecal sac. Facet arthropathy is noted. No central or foraminal stenosis is noted. At L1-2, spondylitic ridge flattens the thecal sac. Moderate facet hypertrophy is noted. No central or foraminal stenosis is noted. At T12-L1, there is a [id number] size right posterolateral disc extrusion which indents the right ventral thecal sac and likely impinges upon the right descending nerve root. There is likely right foraminal stenosis. IMPRESSION: 1. Multilevel degenerative disc disease is noted. Incidental hemangioma is seen in the L1 vertebra. 2. At L4-5, broad-based protrusion with a right posterolateral component narrowing the right intervertebral foramen. 3. At L3-4, spondylitic ridge with left posterolateral disc protrusion which may narrow the left foramen. 4. Broad-based disc protrusion at L1-2 indenting the thecal sac. 5. At T12-L1, right posterolateral disc extrusion which appears to impinge upon the right exiting and descending nerve root.
[2017-05-23 12:34] VITALS: BP 153/70
[2017-05-23] MEDS ORDERED: Atorvastatin* 40 MG TAB PO SCH (17:00)
--- NOTE | 2017-05-23 18:06 | CONS ---
CC: ASHLEY Pedro * CONSULTATION REPORT: DATE OF CONSULTATION: PATIENT OF: Linda Boo MD HISTORY OF PRESENT ILLNESS: I am asked to see Hans Hernandez for further evaluation of weakness and walking difficulties for the past 3 days' time. He was admitted in December for an acute stroke and given TPA at that time and was discharged to home and had been frail, but doing relatively well. For the past week or more, he had been generally weaker, but with more walking difficulties than before. He has fallen once on and has needed to use a walker in the past several days and he has not needed to do that before. He has also had some incontinence, but the family thinks that this is due to him not being able to get to the bathroom quick enough rather than any specific bladder problems. He denied any weakness or numbness, but his history is somewhat vague. When he was sat up and briefly stood by the side of the bed, he said that he had back pain that radiated into both legs and that this was an acute finding with him sitting up, but apparently that this has been happening at least recently and his history is hard to ascertain. PAST MEDICAL HISTORY: 1. Hypertension. 2. Hypothyroidism. 3. BPH. 4. Stroke in December of this year. 5. GERD. MEDICATIONS: Include: 1. Aspirin 81 mg a day. 2. Lipitor 40 mg a day. 3. Proscar 5 mg daily. 4. Fluoxetine 20 mg daily. 5. Levothyroxine 30 mcg every other day and 75 mcg levothyroxine every other day. 6. Lisinopril 10 mg daily. 7. Toprol 25 mg daily. 8. Omeprazole 20 mg daily. ALLERGIES: He has no known allergies. FAMILY HISTORY: No family history for stroke or family history for lung cancer. SOCIAL HISTORY: He used to smoke a pipe, but nothing for more than 50 years. He does not drink or use illicit drugs. He is , his healthcare proxy is his . REVIEW OF SYSTEMS: As per HPI, all other findings are negative. Of note, he had speech difficulties primarily with his prior stroke and he still has some word finding difficulty, but is able to speak in complete sentences. PHYSICAL EXAM: On exam yesterday, temp is 99.4, pulse 61, respirations 12, blood pressure 209/89. He was alert and oriented, but had some word finding difficulties as was his norm. He did not have any slowness of thought, but sometimes he has had troubles with words. Cranial nerves II through XII were intact. Fundi were not well seen. Red reflex is intact. There was no major facial asymmetries. Strength throughout appeared at least no less than trace weak. It was due to attention lag and did not give sustained effort. He reached for objects with either hand symmetrically. Reflexes were 1 and equal. Toes were equivocal to downgoing. Sensory was grossly intact to light touch. Gave some-times inconsistent answers, but not in any particular pattern. Chest : Clear. Cardiovascular: Regular rate and rhythm. Abdomen is soft with positive bowel sounds. DIAGNOSTIC STUDIES/LAB DATA: He had a CT scan that I reviewed of his brain, that showed no acute findings, but an old left parietal occipital lobe infarct and some chronic small vessel disease, with his back pain radiating to his legs when he stood up. We discussed with the family that his change may be due to lumbar disease without lumbar and cervical spine MRI scans. 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 I reviewed his lumbar and cervical MRI scan , which showed diffuse disk and osteophyte disease at multiple levels. In the neck, there was some mild cord deformation, but no clear cord compression or myelopathy. There is multiple levels of neuroforaminal stenosis. Laboratories include white count of 6.3, hematocrit of 44, platelets of 198, 000. Normal INR and PTT. Normal CMP other than a troponin of 0.12. C-reactive protein of 17. Normal TSH. Normal ALT and AST. Ammonia was normal. Toxicology was negative. UA was negative. IMPRESSION AND PLAN: Kendrick May and I discussed with the family after evaluation with him, and the family discussed that they wanted to do a few more imaging tests, did not want any significant intervention for him, but wanted arrangements to be made so that he could hopefully be kept at home. Kendrick is going to contact aids social worker in the morning as well as Physical Therapy and put this plan into motion. I discussed at the time of seeing before the MRI scans were done that we might be able to get more information of some of what was causing his problems, but after discussing this with the family, they did not want to pursue any intervention if needed with his MRI scans showing what they do. There is no specific one correctable disc or other abnormality that would be likely to fix this man's problems, but even if there was, the family and the patient would not want to proceed. Thank you for sharing his case. [id number]/[facility] #: [id number] YING
[2017-05-23] MEDS ORDERED: Azithromycin IV(*) 250 MG in NS 0.9% 250 ML* 250 ML IVPB SCH (22:00)
--- NOTE | 2017-05-24 02:37 | DS ---
CC: Dr. Linda Boo * DISCHARGE SUMMARY: DATE OF ADMISSION: 05/22/17 DATE OF DISCHARGE: 05/23/17 PRIMARY CARE PROVIDER: Dr. Linda Boo. MY ATTENDING WHILE IN THE HOSPITAL: Dr. Lana Agrawal.* (DICTATED BY ASHLEY AGUIRRE) PRIMARY DISCHARGE DIAGNOSES: 1. Cervical spinal stenosis weakness. 2. Community-acquired pneumonia. 3. Hypertensive urgency. SECONDARY DISCHARGE DIAGNOSES: 1. 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 2. Hypertension. 3. Hypothyroidism. 4. Benign prostatic hypertrophy. 5. Gastroesophageal reflux disease. STUDIES DONE WHILE IN THE HOSPITAL: Brain CT from 05/22/17 read as old left parietal and occipital lobe infarcts and atrophy and findings most consistent with moderate to severe small vessel ischemic changes. Abdomen and pelvis CT from 05/22/17 read as left lower lobe infiltrate. No evidence for acute finding in the abdomen, mild splenomegaly, small periumbilical and left inguinal hernias containing fat, enlarged prostate gland. Electrocardiogram from 05/22/17 shows normal sinus rhythm, flattening of the T- waves and aVF, inversion of T-wave in lead 3, inversion of T-wave in V1, probable left ventricular hypertrophy, prolonged NE interval. No other blocks. QTc 446. Chest x-ray from 05/22/17 read as low lung volume, small left basilar infiltrate. Cervical spine MRI from 05/22/17 read as moderate to severe cervical spondylosis. Lumbar spine MRI from 05/22/17 read as multiple degenerative disk disease and central hemangioma seen in the L1, L4, and L5 broad based protrusion with right posterolateral compartment narrowing of right intervertebral foramen, at L3-L4 spondylotic ridge with left posterolateral disk protrusion which may narrow the left foramen broad-based disk protrusion at the L1 and L2 indenting the thecal sac, at T12-L1 the right posterolateral disk extrusion which appears to be indent on the right exiting and descending nerve root. MEDICATIONS AT DISCHARGE: 1. Toprol 25 mg p.o. q.a.m. 2. Omeprazole 20 mg p.o. q.a.m. 3. Levothyroxine 75 mcg p.o. every other day. 4. Finasteride 5 mg p.o. daily. 5. Aspirin 81 mg p.o. daily. 6. Atorvastatin 40 mg p.o. at 1700. 7. Fluoxetine 20 mg p.o. daily. 8. Synthroid 50 mcg p.o. every other day. 9. Azithromycin 250 mg p.o. daily x4. 10. Cefpodoxime 200 mg q.12 hours x12. 11. Lisinopril 40 mg p.o. daily x30. 12. Baclofen 5 mg p.o. q.p.m. Medications discontinued at discharge: 1. Lisinopril 10 mg p.o. daily. New medications at discharge: 1. Azithromycin. 2. Cefpodoxime. 3. Lisinopril. 4. Baclofen. HOSPITAL COURSE: This is a brief summary of the patient's presentation. For more details, please see the history and physical from ASHLEY Aguirre from 05/22/17. In brief, the patient is an 87-year-old male with a past medical history significant for the above, who presented to the emergency department for weakness after a fall on last , 05/17/17. The patient fell onto the carpeted area and was able to get up without any apparent injury; however, the patient developed progressive difficulty with walking after this. The patient also had some dizziness on sitting up. The patient also had fluctuating mental status changes from his baseline which was already somewhat impaired. The patient also had a minor cough that was nonproductive without hemoptysis. There were no subjective or recorded fevers. The patient did not take the patient's temperature or blood pressure at home. The patient presented to the ED. He had some severe pain with standing and was unable to stand without significant help. The patient also had a blood pressure which at times was greater than 200 systolic. Family and the patient were very adamant that they did not want any invasive interventions and wanted to have the patient comfortable at home primarily. The patient was admitted. An MRI of the lumbar and cervical spine were obtained as above. Neurology was consulted. The patient also had borderline urinary retention while in the emergency department, but a Subramanian catheter was deferred for comfort and repeat bladder scans all showed non-significant residual. The patient had a chest x- ray read as above which combined with his cough and weakness, pointed to the possibility for community-acquired pneumonia and the patient was started on empiric therapy of azithromycin and ceftriaxone. The patient had no events overnight. Social work consult and palliative care consult were obtained and family's wishes were refined to represent that they wanted him to be at home with visiting nurse services, but without hospice at this time, though they would be interested in the future. The patient was seen by physical therapy and was able to ambulate well and the family was instructed on the best way to have the patient stand without exacerbating back pain and maximizing independence. Neurology stated that the findings on the above MRIs were very consistent with the patient's pain and progressive weakness and that he would probably benefit from muscle relaxant at home, but that more invasive therapy such as injections of the intervertebral foramina would probably not be indicated due to multilevel disk disease. The patient's blood pressure was also persistently high and was treated with hydralazine in the hospital and increased lisinopril dose up to 40 mg p.o. daily which brought the patient's blood pressure down to approximately 153/70 consistently. The family was instructed to follow blood pressures through visiting nurse services to avoid hypotension and excessive hypertension. The patient was discharged to home with visiting nurse services. The patient had a DNR which was signed while in the hospital. The patient had a positive straight leg raise on the right side. PHYSICAL EXAMINATION ON THE DAY OF DISCHARGE: General: The patient is an 87- year- old male who appears stated age and sitting comfortably in bed in no acute distress. Vital Signs: At the time of discharge, temperature 98.2, heart rate 60, respiratory rate 20, oxygen saturation 95% on room air, and blood pressure 153/70. HEENT: Head: Normocephalic and atraumatic. Sclerae anicteric. No conjunctival injection. Nasal mucosa moist. Oral mucosa moist. No pharyngeal erythema. No postnasal drainage or exudates noted in the posterior pharynx. Cardiac: Regular rate and rhythm. No clicks, murmurs, gallops, or rubs. Pulses are 2+ in the bilateral dorsalis pedis, posterior tibialis, and radial areas. No lower extremity edema noted. Respiratory: Good air exchange bilaterally. There are rhonchi present in the bilateral lower lobes, improved from exam on 05/19/17. Abdomen: Soft, nontender, and nondistended. Bowel sounds present and normoactive in all 4 quadrants. No hepatosplenomegaly. No abdominal bruits auscultated. Genitourinary: No suprapubic tenderness or CVA tenderness. Skin: Clean, dry, and intact. No rash. Psychiatric: The patient is somewhat anxious, but is generally pleasant and making jokes. Neuro: Cranial nerves II through XII intact. The patient has 5/5 strength in bilateral upper and lower extremities distally and proximally. Reflexes 1+ throughout. Babinski is downgoing bilaterally. The patient has expressive and possible receptive aphasia and a difficult time making his needs known; however, the patient is alert and oriented x3 when given adequate time for responses. The patient had a positive straight leg raise on the right side. LABORATORY DATA ON THE DAY OF DISCHARGE: White blood cell count 6.9, red blood cell count 4.37, hemoglobin 14.1, platelet count 193. Sodium 136, potassium 3.5 , chloride 104, carbon dioxide 24, anion gap 8, BUN 12, creatinine 0.9, glucose 100, calcium 8.8, magnesium 1.8. Other pertinent laboratory data: Ammonia 39, lactic acid 1.6, ALT 17, AST 10, alkaline phosphatase 103, C-reactive protein 17.73. BNP 129. Troponin I 0.12, TSH 0.45, lipase 23. Urine shows no nitrite or leukocyte esterase. Positive urine toxicology. DISCHARGE PLAN: The patient will be discharged to home with support of his family and visiting nurse services with a focus on comfort and the patient should trial baclofen for 2 weeks and then trial off baclofen for 2 weeks to notice if there is any difference in his level of pain. The patient can also take Tylenol for pain control. The patient should engage in physical therapy, exercises as instructed by the physical therapist while in the hospital. The patient should follow up with primary care provider in 1 week for general medical management. The patient should have his blood pressure monitored by visiting nurse services to avoid any excessive hypertension or possible hypotension from the increase in lisinopril dosage. The patient should follow up with pain management if indicated from based on continuing worsening pain from his spinal stenosis and for the possibility of more invasive treatment or other pain management strategies. The patient will be treated empirically for community-acquired pneumonia with a total of 5 days of azithromycin and 7 days of ceftriaxone/cefpodoxime. TIME SPENT: Approximately 60 minutes was spent for discharge, 30 of which was spent [id number] with the patient obtaining history and physical and discussing treatment plan. ASHLEY AGUIRRE [id number]/[facility] #: [id number] YING
== END 2017-05-23 15:15 | disposition home or self-care (01) ==
LOC: ED 11:52 → MEDTELE 16:03
PROVIDERS: ADMIT Internal Medicine; ATTEND Internal Medicine
DX: R53.1 Weakness (principal); M48.02 Spinal stenosis, cervical region; J18.9 Pneumonia, unspecified organism; I16.0 Hypertensive urgency; I69.320 Aphasia following cerebral infarction; I10 Essential (primary) hypertension; E03.9 Hypothyroidism, unspecified; N40.0 Benign prostatic hyperplasia without lower urinary tract symptoms; K21.9 Gastro-esophageal reflux disease without esophagitis; Z79.899 Other long term (current) drug therapy; M51.36 Other intervertebral disc degeneration, lumbar region; M51.26 Other intervertebral disc displacement, lumbar region; F41.9 Anxiety disorder, unspecified; F32.9 Major depressive disorder, single episode, unspecified; Z87.891 Personal history of nicotine dependence; R16.1 Splenomegaly, not elsewhere classified; K40.90 Unilateral inguinal hernia, without obstruction or gangrene, not specified as recurrent; R94.31 Abnormal electrocardiogram [ECG] [EKG]
CPT/HCPCS: 36415; 70450; 71010; 72141; 72148; 74177; 80048; 80053; 80307; 80320; 80329; 81003; 81015; 82140; 82550; 83605; 83690; 83735; 83880; 84443; 84484; 85025; 85610; 85730; 86140; 93005; 96361; 96365; 96367; 96375; 96376; 99285; A9270-GY; G0378; G0480; G8978-GP-CI; G8979-GP-CI; G8980-GP-CI; J0360; J0456; J0696; J3475; Q9967

== ENCOUNTER 2018-10-24 00:08 | Inpatient (IN) | payer MEDICARE, BC ==
[2018-10-24] MEDS ORDERED: Glucagon* 1 MG VIAL IM ONE (00:36)
[2018-10-24] MEDS ORDERED: NS 0.9% 1000 ML** 1,000 ML IV ONE (00:36)
--- NOTE | 2018-10-24 00:38 | ED ---
Throat Pain/Nasal Congestion - HPI Summary HPI Summary: An 88 y/o M brought in by ambulance presents to ED c/o worsening dysphagia onset yesterday evening approx. 1800. Per : hes been having difficulty swallowing. He ate chicken for supper and was having trouble swallowing. Shes been hearing gurgling from his throat which is new. Hes had difficulty drinking water as well. Hes had multiple endoscopies in the past, the most recent at [facility] was in 2013. He sees SMOOTH Gould. Patient has halting speech at baseline. He is a former smoker. Patient given water at bedside. He says the water is going down slowly and getting stuck above his sternum. Patient is audibly gurgling. - History of Current Complaint Chief Complaint: EDGeneral Time Seen by Provider: 10/24/18 00:28 Hx Obtained From: Patient, Family/Director Of Infection Prevention - Onset/Duration: Still Present Severity: Moderate Cough: None - Allergies/Home Medications Allergies/Adverse Reactions: Allergies Allergy/AdvReac Type Severity Reaction Status Date / Time No Known Allergies Allergy Verified 10/24/18 03:09 Home Medications: Home Medications FLUoxetine CAP* [Prozac CAP*] 25 mg PO DAILY 10/24/18 [History Confirmed ] PMH/Surg Hx/FS Hx/Imm Hx Previously Healthy: No Endocrine/Hematology History: Reports: Hx Thyroid Disease - hypothyroidism Denies: Hx Diabetes Cardiovascular History: Reports: Hx Hypertension, Other Cardiovascular Problems/ Disorders - basal artery stenosis Denies: Hx Pacemaker/ICD Respiratory History: Denies: Hx Chronic Obstructive Pulmonary Disease (COPD) GI History: Reports: Hx Gastroesophageal Reflux Disease - TAKES RX History: Reports: Hx Benign Prostatic Hyperplasia Denies: Hx Dialysis, Hx Renal Disease Musculoskeletal History: Reports: Hx Arthritis - HIPS, KNEES, GENERALIZED, Other Musculoskeletal History - RIGHT CARPAL TUNNEL Sensory History: Reports: Hx Contacts or Glasses, Hx Hearing Problem - KASAAN Denies: Hx Hearing Aid Opthamlomology History: Reports: Hx Contacts or Glasses Neurological History: Reports: Other Neuro Impairments/Disorders - RIGHT CARPAL TUNNEL SYNDROME Denies: Hx Dementia Psychiatric History: Denies: Hx Panic Disorder - Cancer History Cancer Type, Location and Year: SKIN - Surgical History Surgery Procedure, Year, and Place: RIGHT HIP REPLACEMENT;. BACK SURGERY;. LAPROSCOPIC HERNIA REPAIR Hx Anesthesia Reactions: No Infectious Disease History: No Infectious Disease History: Denies: Traveled Outside the [place] in Last 30 Days - Family History Known Family History: Positive: Other - Negative cancer and GERD Negative: Cardiac Disease, Diabetes - Social History Occupation: Retired Lives: With Family Alcohol Use: None Hx Substance Use: No Substance Use Type: Reports: None Hx Tobacco Use: Yes Smoking Status (MU): Former Smoker Type: Cigarettes Review of Systems Positive: Other - pos: dysphagia Negative: Cough Positive: Other - pos: decreased oral intake All Other Systems Reviewed And Are Negative: Yes Physical Exam - Summary Physical Exam Summary: Appearance: Well-appearing, Well-nourished, elderly M lying in bed comfortably Skin: Warm, dry, no obvious rash Eyes: sclera anicteric, no conjunctival pallor ENT: mucous membranes moist, pharynx appears normal Neck: Supple, nontender Respiratory: Clear to auscultation, no signs of respiratory distress Cardiovascular: Normal S1, S2. No murmurs. Normal distal pulses in tibial and radial bilaterally. Abdomen: Soft, nontender, normal active bowel sounds present Musculoskeletal: Normal, Strength/ROM Intact Neurological: A&Ox3, awake and alert, mentation is normal, speech is halting but this is said to be a chronic condition Psychiatric: affect is normal, does not appear anxious or depressed Triage Information Reviewed: Yes Vital Signs On Initial Exam: Initial Vitals Temp Pulse Resp BP Pulse Ox 99.1 F 70 20 208/104 94 10/24/18 00:10 10/24/18 00:10 10/24/18 00:10 10/24/18 00:10 10/24/18 00:10 Vital Signs Reviewed: Yes Diagnostics - Vital Signs Vital Signs Temp Pulse Resp BP Pulse Ox 10/24/18 00:19 64 184/109 94 10/24/18 00:10 99.1 F 70 20 208/104 94 - Laboratory Result Diagrams: 10/26/18 08:56 10/26/18 08:51 Lab Statement: Any lab studies that have been ordered have been reviewed, and results considered in the medical decision making process. Re-Evaluation - Re-Evaluation 1 Re-Evaluation Time: 01:24 Change: Unchanged Comment: Patient still obstructed. 2 Re-Evaluation Time: 02:32 Change: Unchanged Comment: Patient still obstructed. EENT Course/Dx - Course Course Of Treatment: Pt is an 88 y/o M presenting with worsening dysphagia onset yesterday evening approx. 1800. His says patient has been gurgling from his throat which is new. Hes had multiple endoscopies in the past, the most recent at [facility] was in 2013. He sees SMOOTH Gould. Patient has halting speech at baseline. Consulted with SMOOTH Pruett, who recommended Glucagon, which was given to patient 2x to no relief. saw patient in ED and performed endoscopy. She then recommended admission to hospitalist. Consulted with Dr. Bajwa, hospitalist, who will admit patient. - Diagnoses Provider Diagnoses: Obstruction of esophagus due to food impaction - Provider Notifications Discussed Care Of Patient With: Louise Johnston Time Discussed With Above Provider: 00:46 Instructed by Provider To: Other - Recommends giving the patient the Glucagon, call again in 20 mins if doesnt work. Consulted again 0130: Recommends giving another dose of Glucagon. Consulted again at 0238: Will see pt in ED. Discharge - Sign-Out/Discharge Documenting (check all that apply): Patient Departure - ADMIT Patient Received Moderate/Deep Sedation with Procedure: No - Discharge Plan Condition: Stable Disposition: ADMITTED TO [facility] - Billing Disposition and Condition Condition: STABLE Disposition: Admitted to [facility] - Attestation Statements Document Initiated by Sharona: Yes Documenting Scribe: Jose Greene Provider For Whom Scribe is Documenting (Include Credential): Dr. Anshu Hawthorne MD Scribe Attestation: IJose scribed for Dr. Anshu Hawthorne MD on 10/28/18 at 0115. Scribe Documentation Reviewed: Yes Provider Attestation: The documentation as recorded by the Jose summers accurately reflects the service I personally performed and the decisions made by me, Dr. Anshu Hawthorne MD Status of Scribe Document: Viewed Consult Consult: 0600: Consult with Dr. Bajwa, hospitalist Will admit patient.
[2018-10-24] MEDS ORDERED: Glucagon* 1 MG VIAL IV ONE (01:33)
[2018-10-24] MEDS ORDERED: Metoprolol Tartrate IV* 1 MG/ML 5 ML VIAL IV ONE (01:41)
[2018-10-24] MEDS ORDERED: fentaNYL* 50 MCG/ML 2 ML VIAL (100 MCG VIAL) ONE ×2 (03:59→14:04)
[2018-10-24] MEDS ORDERED: Midazolam* 1 MG/ML 10 ML VIAL (10 MG) ONE (03:59)
--- NOTE | 2018-10-24 06:04 | CONS ---
GASTROENTEROLOGY CONSULT REPORT: DATE OF CONSULT: 10/24/18 CONSULTING PROVIDER: Dr. Hawthorne in ED. REASON FOR CONSULT: Food impaction. HISTORY OF PRESENT ILLNESS: Mr. Hernandez in an 88-year-old gentleman with history of CVA, esophageal stricture with food impactions and dilations in the past, hypertension, and cognitive decline vs delirium, who presents to the ER with food impaction. History is largely obtained from the as the patient has halted speech and possibly some confusion at baseline. The patient's states that he was eating baked chicken at around 6 p.m. and started complaining of the sensation that the food was stuck. He had multiple episodes of either throwing up or spitting up. Presented to the ER for evaluation. In the ER, he was given glucagon 1 mg IV x2 without effect. GI consulted. On interview, Mr. Hernandez is unable to state if he continues to feel food impaction, although his notes that he has not been spitting up since receiving second dose of glucagon. On chart review, it appears that Mr. Hernandez last underwent an endoscopy in 2013. There was a narrow stricture in the distal esophagus for which dilation was performed to 10 mm. The patient's reports that he had food impaction in 2016 while in the [place] area and underwent dilation. I do not have the report of this procedure. He denies any dysphagia symptoms on a regular basis until presenting to the ER today. PAST MEDICAL HISTORY: History of a stroke within the past few years, hypertension, hypothyroidism, GERD, esophageal stricture status post dilations, osteoarthritis, carpal tunnel syndrome. PAST SURGICAL HISTORY: Right hip replacement, back surgery, laparoscopic hernia repair. MEDICATIONS: Include; 1. Amlodipine 2.5 mg daily. 2. Fluoxetine 25 mg daily. 3. Finasteride 5 mg daily. 4. Levothyroxine 75 mcg daily. 5. Metoprolol XL 25 mg daily. 6. Omeprazole 20 mg daily. 7. Aspirin 81 mg daily. 8. Atorvastatin 40 mg daily. 9. Lisinopril 40 mg daily. ALLERGIES: No known allergies. FAMILY HISTORY: No known GI or liver disease. SOCIAL HISTORY: No significant alcohol use. No drug use. Former smoker. REVIEW OF SYSTEMS: Complete review of systems is negative except as above. PHYSICAL EXAM: Vital Signs: Heart rate 68, blood pressure 146/76, 91% to 95% on room air. General: Elderly gentleman. Mildly confused. Unable to provide much history. HEENT: Mucous membranes moist. Not spitting up during exam after drinking water. Cardiovascular: Regular rate and rhythm. Lungs: Breathing comfortably. Abdomen: Soft, nontender, nondistended. Extremities: No edema. Skin: No jaundice. Neuro: Some halting speech and mild confusion suspected. DIAGNOSTIC STUDIES/LAB DATA: Labs: No labs this admission. Imaging: No imaging this admission. Endoscopy from 2014 was reviewed and summarized in the HPI. IMPRESSION AND RECOMMENDATIONS: Mr. Hernandez is an 88-year-old gentleman with a history of a stroke and distal esophageal stricture status post dilations in the past, who presents with food impaction. Noticed a sensation of food impaction after eating chicken at 6 p.m. on Sunday evening. Has received glucagon x2 in the ER. Food bolus may have passed as the patient is no longer spitting up and is able to drink water. We will plan to proceed with an upper endoscopy to determine if the food bolus passed. If the stricture does not demonstrate any evidence of inflammation as a result of the food impaction, then we can consider a dilation to help prevent recurrence of impaction. Thank you very much for this consult. [id number]/[facility] #: [id number] YING
--- NOTE | 2018-10-24 09:49 | HP ---
HISTORY AND PHYSICAL: DATE OF ADMISSION: 10/24/18 TIME OF ADMISSION: 8 a.m. PRIMARY CARE PHYSICIAN: Linda Boo MD NEUROLOGIST: Petros Moon MD NETWORK SYSTEMS ADMINISTRATOR: Dr. Guerra. CHIEF COMPLAINT: Feeling like food was stuck. HISTORY OF PRESENT ILLNESS: This is an 88-year-old man with history of esophageal stricture and impaction last in 2015, who presented to the emergency department with a sensation of his dinner stuck in his esophagus, that he first complained of at 6 o'clock last night. He has history of dementia and aphasia since a CVA in 2017, but was able to express to his that he felt that the chicken, which they were eating could not go down his esophagus. He is unable to provide this history to me; however, his states this is not uncommon for him since his stroke. His provides most of the history and explains that he has been following with Dr. Guerra and has had no issues with his esophagus since 2015 when he was apparently dilated somewhere in [place]. His endoscopy here was in 2013. He has no other complaints at this time. He has no pain, cough, shortness of breath and does note difficulty swallowing at this time. ED COURSE: He received glucagon 1 mg x2 and he was evaluated by Dr. Johnston , who completed a bedside EGD and noted a tight stricture with esophageal inflammation and food impaction; however, believes that the food bolus had passed. PAST MEDICAL HISTORY: CVA in 2017, esophageal stricture with history of impaction, hypertension, GERD, and osteoarthritis. PAST SURGICAL HISTORY: He has had a right hip replacement and a hernia repair. MEDICATIONS: Home medications: 1. Amlodipine 2.5 mg daily. 2. Aspirin 81 mg daily. 3. Atorvastatin 40 mg daily. 4. Proscar 5 mg daily. 5. Fluoxetine 25 mg daily. 6. Synthroid 75 mcg every other day. 7. Lisinopril 40 mg daily. 8. Toprol-XL 25 mg q.h.s. 9. Omeprazole 20 mg daily. REVIEW OF SYSTEMS: Unable to be obtained due to the patient's dementia and aphasia. PHYSICAL EXAMINATION GENERAL: Elderly, ill-appearing man, who is in no acute distress. He does not follow most of my commands and is unable to answer most of my questions, but does do so with yes or no questions. He appropriately identifies his by name, but states she is his sister. He is disoriented to place, situation, and time. VITAL SIGNS: Temp 99.4, heart rate 86, respiratory rate 18, pulse ox 96% on 2 L , blood pressure 144/87. HEENT: His left pupil is 4 mm and his right pupil is 3 mm. They are both reactive to light. Oral mucosa is moist. NECK: No JVP or cervical adenopathy. CHEST: He is in a regular rate and rhythm with no murmurs and his lungs are clear bilaterally. ABDOMEN: Soft, nontender, nondistended. No guarding or rebound. No CVA tenderness. EXTREMITIES: No edema, rashes, or ulcers. He has scattered seborrheic keratosis. NEUROLOGIC: Orientation as above. His strength is 5/5 in all extremities. His memory is poor. DIAGNOSTIC STUDIES/LAB DATA: Labs: None have been drawn. Imaging: None has been done. ASSESSMENT AND PLAN: This is an 88-year-old man with history of a cerebrovascular accident and dementia and esophageal stricture, who presents to the emergency department with feeling of food being stuck. He was seen in the emergency department by Dr. Johnston, who completed a bedside EGD and found impaction with tight stricture. 1. Food impaction. As above, he already received glucagon and Dr. Johnston already evaluated him endoscopically. She would like him to be admitted for observation, so that he can undergo a repeat endoscopy this afternoon under general anesthesia. For now, I will keep him n.p.o., continue his IV fluids, and he has no other symptoms to manage at this time. I would check a chest x- ray to be sure he has not aspirated since he is a poor historian. 2. History of cerebrovascular accident. Hold his p.o. meds. 3. Hypertension. Hold p.o. meds. 4. DVT prophylaxis. Heparin subcutaneously. 5. Disposition. Admit to observation. Check labs. [id number]/[facility] #: [id number] [facility]
[2018-10-24] MEDS: NS 0.9% 1000 ML** 1,000 ML IV SCH ×2 (10:26→20:07)
[2018-10-24] MEDS ORDERED: Lidocaine 2% PF * 5 ML VIAL ONE (14:04)
[2018-10-24] MEDS ORDERED: Propofol* 10 MG/ML 20 ML BTL ONE ×2 (14:04→14:29)
[2018-10-24] MEDS ORDERED: Succinylcholine* 20 MG/ML 10 ML VIAL ONE (14:04)
[2018-10-24] MEDS ORDERED: Phenylephrine 40 MCG/ML SYRINGE ONE (14:20)
[2018-10-24] MEDS ORDERED: fentaNYL* 50 MCG/ML 2 ML VIAL (100 MCG VIAL) IV PRN (14:22)
[2018-10-24] MEDS ORDERED: Ondansetron INJ* 2 MG/ML VIAL IV PRN (14:22)
[2018-10-24] MEDS ORDERED: DiMENhydriNATE IV* 50 MG/ML VIAL IV PUSH PRN (14:22)
[2018-10-24] MEDS ORDERED: diPHENhydraMINE IV* 50 MG/ML 1 ml VIAL (BENADRYL) IV PRN (14:22)
[2018-10-24] MEDS ORDERED: Naloxone* 0.4 MG/ML 1 ML VIAL IV PRN (14:22)
[2018-10-24] MEDS ORDERED: Acetaminophen TAB* 325 MG PO PRN (14:22)
[2018-10-24] MEDS ORDERED: Buffered Lidocaine 1% SYRIN* 1 ML/SYRINGE INTRADERM ONE (14:23)
[2018-10-24] MEDS ORDERED: Cisatracurium* 2 MG/ML MDV 5 ML ONE (14:29)
[2018-10-24] MEDS ORDERED: EPHEDrine (Pressors)* 50 MG/ML VIAL ONE (14:38)
[2018-10-24] MEDS ORDERED: Lactated Ringers 1000 ML Bag* 1,000 ML IV SCH (15:00)
[2018-10-24] MEDS ORDERED: Metoprolol Tartrate IV* 1 MG/ML 5 ML VIAL ONE (15:07)
--- NOTE | 2018-10-24 15:50 | PRO ---
PROCEDURE REPORT: DATE OF PROCEDURE: 10/24/18. PROCEDURE: EGD. INDICATION: Food impaction with history of esophageal stricture. The patient noticed food impaction symptoms starting after eating chicken at 6 p.m. History of a tight esophageal stricture. Dilation was performed in 2013 to 10 mm using a balloon dilator. His informs me that he also had a food impaction and dilation in 2016 in [place] while they were travelling. Denies any recent dysphagia symptoms. History of stroke and some dementia-type symptoms, particularly at night. MEDICATIONS GIVEN: 1. Midazolam 8 mg IV. 2. Fentanyl 75 mcg IV. DESCRIPTION OF PROCEDURE: Full disclosure of risks was reviewed with the patient as detailed on the consent form. The patient was placed in the left lateral decubitus position and monitored with continuous pulse oximetry, capnography, interval blood pressure monitoring, and direct observation. A bite -block was placed between the patient's teeth. An adult gastroscope was then inserted into the patient's esophagus. Findings and interventions are described below. FINDINGS: Esophagus was a tubular structure with a food bolus impacted in the distal esophagus presumably at a stricture. A hexagonal snare and rat tooth forceps were used to help dislodge portions of the food bolus with moderate success. Unfortunately, the adult gastroscope was unable to further advance into the esophagus to further attempt to dislodge the bolus as there appeared to be a narrowing to the esophagus. The adult gastroscope was then removed and a pediatric gastroscope ([id number]) was advanced into the esophagus to area of the food impaction. Pediatric forceps was then used to dislodge portions of the food bolus. The food bolus diminished in size. However, the impaction persisted. Using the pediatric forceps, I was able to tunnel slightly through the center of the food bolus. Views were very limited although it appeared that the mucosa distal to the food bolus was quite narrow. The mucosa was also quite inflamed appearing and oozing blood. The length of the case was nearly an hour and half at this point. Given the prolonged nature of the case and advanced age of patient with a significant amount of sedation already given ( relative to patient age), the decision was made to abort the procedure in favor of performing later with anesthesia. Pediatric gastroscope was removed from the patient. A therapeutic gastroscope ([id number]) was briefly advanced into the esophagus to suction up with small pieces of the food bolus which were previously retrieved and left in the mid esophagus. All the visualized small pieces of food were able to be suctioned. Scope was then withdrawn from the patient. The patient tolerated the procedure without any acute complications and was recovered in the ED. IMPRESSION: Significant food impaction in the setting of distal esophageal stricture. RECOMMENDATIONS: 1. The patient should be admitted for observation. 2. Plan for repeat EGD with anesthesia later in the day to dislodge the remaining food bolus. I discussed the case in detail with the patient's . I also discussed the case with incoming energy administrator, Dr. Finn. [id number]/[facility] #: [id number] MTDMk
[2018-10-24] MEDS ORDERED: Albuterol/Ipratropium NEB.SOL* Albuterol 2.5 MG/Ipratropium 0.5 MG 3 ML ONE (18:04)
--- NOTE | 2018-10-24 18:33 | PN ---
Hospitalist Progress Note Date of Service: 10/24/18 I was called for hypoxia and increased work of breathing. I came to see Mr. Hernandez and he was tachypneic and hypoxic to the high 80s on 4L O2. We turned O2 up to 10L and he improved oxygenation and work of breathing decreased. A stat CXR shows a possible developing infiltrate in the RML. I attempted to titrated the O2 down but he quickly drops to mid-80s. On 10L now, he is in the mid-90s, but when he dozes off, his pulse ox drops again. I have explained my plan to transfer him to the ICU to put him on vapotherm and start an antibiotic for presumed aspiration pneumonia, trend his pulse ox overnight, and check labs. His son adamantly wants to take him home, however I explained the difference between comfort care, hospice, and DNR and why it would be unsafe and inhumane to send him home and he agrees. Mt has no complaints. He would agree to a trial of bipap if indicated tonight. Confirmed with Nas (son) and So that Mt is DNR.
[2018-10-24] MEDS ORDERED: ZOSYN 3.375 GM x ONE DOSE over 30 miuntes IVPB ×2 (19:00)
[2018-10-24] MEDS: Heparin VIAL(*) 5000 UNITS/ML VIAL (FIVE THOUSAND) SUBCUT SCH ×2 (19:39→21:41)
[2018-10-24] MEDS: metroNIDAZOLE IV 250 MG/50ML* 50 ML IVPB SCH (20:43)
[2018-10-24 20:49] LABS: ABS Basophils 0.1 10^3/ul (0-0.2); ABS Lymphocytes 0.5 10^3/ul (1.0-4.8); ABS Neutrophils 14.1 10^3/ul (1.5-7.7); Hematocrit 41 % (42-52); Hemoglobin 13.6 g/dL (14.0-18.0); Lymphocyte % 3.2 %; Mean Corpuscular HGB Conc 34 g/dL (31-36); Mean Corpuscular Hemoglobin 32 pg (27-31); Mean Corpuscular Volume 96 fL (80-94); Mean Platelet Volume 8.2 fL (7.4-10.4); Platelet Count 210 10^3/uL (150-450); Red Blood Count 4.23 10^6 /uL (4.18-5.48); Red Cell Distribution Width 14 % (10.5-15); White Blood Count 15.6 10^3/uL (3.5-10.8)
[2018-10-24 21:04] LABS: BUN/Creatinine Ratio 19.3 (8-20); Blood Urea Nitrogen 16 mg/dL (6-24); CO2 Carbon Dioxide 25 mmol/L (22-32); Calcium 8.8 mg/dL (8.6-10.3); Chloride 107 mmol/L (101-111); EGFR African American 105.6 (>60); EGFR Non-African American 87.2 (>60); Glucose 88 mg/dL (70-100); Sodium 140 mmol/L (135-145)
[2018-10-24 22:24] LABS: Anion Gap 8 mmol/L (2-11)
--- NOTE | 2018-10-24 23:46 | PRO ---
CC: Dr. Linda Boo ESOPHAGOGASTRODUODENOSCOPY REPORT: DATE OF PROCEDURE: 10/24/18 PRIMARY CARE PHYSICIAN: Dr. Linda Boo. INDICATION FOR PROCEDURE: Food bolus impaction. PROCEDURE PERFORMED: Complete esophagogastroduodenoscopy with food bolus removal and biopsy of stric ture and dilation of stricture. MEDICATIONS GIVEN: Please see Anesthesia record. DESCRIPTION OF PROCEDURE: After the EGD procedure including the risks, benefits, and alternatives wi th the risks not limited to perforation, surgery, missed lesions and/or were explained to the p atient, written informed consent was obtained from the So and also the son Nas to proceed given his dementia. An opportunity for questions was presented and they agreed to proceed. The juan jose ent was given IV sedation by the anesthesia service with general intubation. Next, a bite-block was placed between the teeth. The adult Olympus gastroscope was then inserted into the patient's orophar ynx into the esophagus. 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 This was occluding in nature. A gentle press with the sc ope would not allow it to pass beyond this. I then introduced the snare and removed this in piecemea l with good effect. I was eventually able to clear the bolus with the snare. There was some narrowi ng to the distal esophagus; however, the adult scope did pass through this area with ease, meaning we have a diameter of roughly 10 cm at the distal end. I then inserted a TTS-CRE balloon dilator and d ilated from 10 to 12 mm with good effect. A small rent was appreciated. The decision was made to no t dilate any further at that point. The scope was then advanced into the lower esophageal sphincter and into the stomach. There was some scattered gastric polyps that were not sampled due to the acuity of the procedure. The scope was then advanced through the antrum and through the widely patent pylor us into the duodenal bulb, C-loop, and distal duodenum. These were all normal in appearance. The sc ope was then returned to the stomach. On retroflexion, the views were grossly normal as well. The s cope was then removed from the patient. He tolerated the procedure well. He was returned to the [facility] very room in stable condition. IMPRESSION: 1. Complete esophagogastroduodenoscopy with biopsies. 2. Food bolus removal and dilation of stricture. 3. Successful food bolus removal. 4. Biopsy was taken of stricture to rule out malignancy. 5. Dilation of stricture from 10 to 12 mm with the TTS-CRE balloon dilator. RECOMMENDATIONS: Recommend liquids for 24 hours. Given the recurrent nature of this, we will plan o n a pureed diet for 2 weeks and then I will repeat an upper endoscopy at that time. He does have the stricture but I do wonder if there is a component of achalasia, as the lower esophageal sphincter wa s quite tight at times and may consider injecting Botox at that point. So we will plan on repeat EGD with anesthesia assistance and dilation and potentially Botox to see if we can improve his swallowin g further. [id number]/[facility] #: [id number]
[2018-10-25] MEDS: Piperacillin/Tazobac ADVAN(*) 3.375 GM in NS 0.9% 100 ML* 100 ML IVPB SCH ×3 (00:17→17:49)
[2018-10-25] MEDS: metroNIDAZOLE IV 250 MG/50ML* 50 ML IVPB SCH ×3 (03:32→20:21)
[2018-10-25] MEDS: Heparin VIAL(*) 5000 UNITS/ML VIAL (FIVE THOUSAND) SUBCUT SCH ×3 (06:16→20:21)
--- NOTE | 2018-10-25 13:05 | PN ---
Progress Note - Progress Note Date of Service: 10/25/18 - Progress note/Transfer note Note: Pt seen and examined at bedside. Pt has done well overnight. He was titrated from Vapotherm to salter this morning. Swallow eval at bedside completed. Pt is poor historian, denies any issues. Pt ``I like it her, want to stay here longer " Vitals, labs and overnight events were reviewed Plan of care discussed in interdisciplinary rounds Active Medications Generic Name Dose Route Start Last Admin Trade Name Manny PRN Reason Stop Dose Admin Furosemide 40 mg 10/26/18 09:00 Lasix Iv* IV 10/26/18 09:01 ONCE ONE Heparin Sodium (Porcine) 5,000 units 10/24/18 14:00 10/25/18 06:16 Heparin Vial(*) SUBCUT 5,000 units Q8HR EUNICE Administration Metronidazole/Sodium Chloride 50 mls @ 50 mls/hr 10/24/18 19:30 10/25/18 03: 32 Flagyl 250 Mg Ivpb* IVPB 50 mls/hr Q8H EUNICE Administration Piperacillin Sod/Tazobactam 100 mls @ 25 mls/hr 10/25/18 01:00 10/25/18 08:46 Sod 3.375 gm/ Sodium Chloride IVPB 25 mls/hr Q8H EUNICE Administration Vital Signs Temp Pulse Resp BP Pulse Ox 97.4 F 61 20 131/71 98 10/25/18 12:00 10/25/18 10:00 10/25/18 10:00 10/25/18 10:00 10/25/18 10:00 O/E: Pt in NAD HEENT: PERRLA, no JVD Lungs: Clear to auscultation CVS: S1, S2+ Abd: Soft, BS+ Ext: Normal ROM Neuro: Alert, awake Skin: No rash Laboratory Results - last 24 hr 10/24/18 10/24/18 10/24/18 18:14 20:30 20:30 WBC 15.6 H RBC 4.23 Hgb 13.6 L Hct 41 L MCV 96 H MCH 32 H MCHC 34 RDW 14 Plt Count 210 MPV 8.2 Neut % (Auto) 90.0 Lymph % (Auto) 3.2 Karnes % (Auto) 6.4 Eos % (Auto) 0.0 Baso % (Auto) 0.4 Absolute Neuts (auto) 14.1 H Absolute Lymphs (auto) 0.5 L Absolute Monos (auto) 1.0 H Absolute Eos (auto) 0.0 Absolute Basos (auto) 0.1 Absolute Nucleated RBC 0.0 Nucleated RBC % 0.0 Patient Temperature Not Reportable ABG pH 7.39 ABG pH (Temp Correct) Not Reportable ABG pCO2 36 ABG pCO2 (Temp Corrct Not Reportable ABG pO2 62 L ABG pO2 (Temp Correct Not Reportable ABG HCO3 22.7 ABG O2 Saturation 93.5 L ABG Base Excess -2.6 L Respiration Rate Not Reportable O2 Delivery Device 10 lpm nc Ventilator Type Not Reportable Vent Mode Not Reportable FiO2 Not Reportable Inspiratory Time Not Reportable PEEP Not Reportable Pressure Support Not Reportable Pressure Control Not Reportable EPAP Not Reportable IPAP Not Reportable BiPAP Not Reportable Sodium 140 Potassium TNP Chloride 107 Carbon Dioxide 25 Anion Gap 8 BUN 16 Creatinine 0.83 Est GFR ( Amer) 105.6 Est GFR (Non-Af Amer) 87.2 BUN/Creatinine Ratio 19.3 Glucose 88 Lactic Acid Calcium 8.8 B-Natriuretic Peptide 10/24/18 10/24/18 10/25/18 20:30 20:30 00:12 WBC RBC Hgb Hct MCV MCH MCHC RDW Plt Count MPV Neut % (Auto) Lymph % (Auto) Karnes % (Auto) Eos % (Auto) Baso % (Auto) Absolute Neuts (auto) Absolute Lymphs (auto) Absolute Monos (auto) Absolute Eos (auto) Absolute Basos (auto) Absolute Nucleated RBC Nucleated RBC % Patient Temperature ABG pH ABG pH (Temp Correct) ABG pCO2 ABG pCO2 (Temp Corrct ABG pO2 ABG pO2 (Temp Correct ABG HCO3 ABG O2 Saturation ABG Base Excess Respiration Rate O2 Delivery Device Ventilator Type Vent Mode FiO2 Inspiratory Time PEEP Pressure Support Pressure Control EPAP IPAP BiPAP Sodium Potassium TNP Chloride Carbon Dioxide Anion Gap BUN Creatinine Est GFR ( Amer) Est GFR (Non-Af Amer) BUN/Creatinine Ratio Glucose Lactic Acid 1.4 Calcium B-Natriuretic Peptide 213 H I/R: 88 y o m with h/o CVA, dementia, h/o esophageal stricture presented with food impaction, underwent EGD in ED which was not successful, underwent rpt EGD in OR after intubation and with anesthesia back up and had food that was lodged removed, also had balloon dilation Pt had episode of hypoxia last night and was transferred to ICU, he has required high flow which was tapered, he is currently on nasal cannula with 3L O2. Pt doing well without any issues Swallow evaluation was completed at bedside. He didnot have any evidence of aspiration Full liquid diet was started and will be advanced Pt to c/w mechanical soft diet at home Titrate FiO2 as tolerated Pt to be transferred to medical floor under Dr Fountain`s service D/c home when off O2 and able to advance diet D/w Dr Fountain
--- NOTE | 2018-10-25 18:35 | PN ---
Hospitalist Progress Note Date of Service: 10/25/18 I came to talk with Mr. Hernandez' family. They agree with the plan of attempting to wean O2 tonight, do am ambulatory O2 qualifier tomorrow, continuing antibiotics, and plan for discharge tomorrow
[2018-10-26] MEDS: Piperacillin/Tazobac ADVAN(*) 3.375 GM in NS 0.9% 100 ML* 100 ML IVPB SCH ×2 (00:50→09:46)
[2018-10-26] MEDS: metroNIDAZOLE IV 250 MG/50ML* 50 ML IVPB SCH ×2 (03:12→12:23)
[2018-10-26] MEDS: Heparin VIAL(*) 5000 UNITS/ML VIAL (FIVE THOUSAND) SUBCUT SCH ×2 (05:46→14:22)
[2018-10-26] MEDS ORDERED: Furosemide IV* 10 MG/ML VIAL (40 MG) IV ONE (09:00)
[2018-10-26 09:25] LABS: ABS Eosinophils 0.1 10^3/ul (0-0.6); ABS Lymphocytes 0.9 10^3/ul (1.0-4.8); ABS Monocytes 0.6 10^3/ul (0-0.8); ABS Neutrophils 6.1 10^3/ul (1.5-7.7); Eosinophil % 1.8 %; Hematocrit 36 % (42-52); Hemoglobin 12.2 g/dL (14.0-18.0); Mean Corpuscular HGB Conc 34 g/dL (31-36); Mean Corpuscular Hemoglobin 33 pg (27-31); Mean Corpuscular Volume 96 fL (80-94); Mean Platelet Volume 8.1 fL (7.4-10.4); Platelet Count 157 10^3/uL (150-450); Red Blood Count 3.73 10^6 /uL (4.18-5.48); Red Cell Distribution Width 13 % (10.5-15); White Blood Count 7.9 10^3/uL (3.5-10.8)
[2018-10-26 09:34] LABS: BUN/Creatinine Ratio 26.7 (8-20); Calcium 8.4 mg/dL (8.6-10.3); EGFR African American 101.3 (>60); EGFR Non-African American 83.7 (>60); Potassium 3.5 mmol/L (3.5-5.0)
[2018-10-26 14:23] VITALS: BP 147/71
--- NOTE | 2018-10-26 21:17 | DS ---
DISCHARGE SUMMARY: DATE OF ADMISSION: 10/24/18 DATE OF DISCHARGE: 10/26/18 PRIMARY DIAGNOSES: 1. Food impaction. 2. Esophageal stricture. 3. Aspiration pneumonia. HOSPITAL COURSE: An 88-year-old male with a history of esophageal stricture and impaction, last in 2 016, came into the emergency room with a sensation of dinner stuck in his esophagus. The patient has a history of dementia and aphasia since a CVA in 2017, but was able to express to his that he f elt that the chicken which they were eating would not go down his esophagus. [facility] by Dr. Fountain for full details. He was seen by round corner cutter operator , Dr. Johnston, who completed a bedside EGD and noted a tight stricture and food impaction. The p atient had previously had a dilation procedure in 2013 and had a dilation in 2015 in [place]. Th e patient, due to his tight stricture, had to have an EGD in the [facility]. Please refer to Dr. Finn's EGD report for full details. He had a complete EGD with biopsi es, food bolus removal, and dilation of stricture. Biopsy was taken to rule out malignancy, dilation of stricture from 10 to 12 mm with a TTS- CRE balloon dilator. This was done on 10/24/18. The juan jose ent was transferred to the ICU after a hypoxic event, requiring high-flow oxygen. He was eventually titrated to nasal cannula and currently on room air. The patient was placed on a clear liquid diet i nitially and advanced to a full liquid diet. The patient had a swallow evaluation and the patient di d pass his bedside swallow evaluation and was able to chew, was given Bob Cracker. Please refer t o the swallow note for full details. At this time, GI recommends keeping him on a pureed diet and th at is well tolerated to slowly advance to a mechanical/ground soft diet. The patient also needs to f ollow up with Dr. Finn in 2 weeks and needs a repeat EGD. Dr. Finn's office will be contacting the patient to make the appointment. The patient also had a chest x-ray suggestive of bilateral low er lobe consolidations and the patient was treated with Zosyn in the hospital for aspiration pneumoni a. At the time of discharge, the patient will be discharged on Augmentin 875 p.o. b.i.d. for 5 days a nd the patient had his oxygen checked on ambulation this morning and was noted to be 98%, currently n ot needing oxygen. Vitals and labs are stable at the time of discharge. The patient's daughter and the patient want to go home today. The patient lives at home with his and [facility]Home Care Service s have also been arranged. Vitals and labs noted to be stable at time of discharge. DIAGNOSTIC STUDIES/LAB DATA: Labs: WBC 7.9, hemoglobin 12.2, hematocrit 36, platelets noted to be 1 57. Sodium 140, potassium 3.5, chloride 109, CO2 of 28, BUN 23, creatinine 0.8, glucose noted to be 101. Chest x-ray as discussed. PHYSICAL EXAM: Vitals: Temperature 97.7, pulse 98, respirations 16, oxygen saturation 98%, blood pr essure 129/67. HEENT: NCAT. Heart: S1, S2 present. Regular at the time of exam. Lungs: Decreas ed breath sounds bilaterally. No wheezes, no rhonchi. Abdomen: Soft, nontender. Extremities: Not ed to have minimal edema. Neuro: Alert and oriented. DISCHARGE INSTRUCTIONS: 1. The patient will be discharged home with home care. 2. The patient to follow up with his PCP in 3 to 5 days. 3. The patient to follow up with Dr. Aakash REBOLLAR in 2 weeks. Office number has been provided. 4. The patient's blood pressure noted to be normal range with no medications currently, but this cou ld be in the setting of sedation that he received in the OR and his pneumonia. At this time, the magnolia butterfield will be discharged on the metoprolol that he has been taking at home and will hold off on the am lodipine and the lisinopril that he normally takes. The patient can recheck his blood pressure with his PCP in 3 days and when elevated, can restart these medications. This has been discussed with the patient's daughter and his as well. MEDICATION LIST AT TIME OF DISCHARGE: 1. Levothyroxine 75 mcg p.o. daily. 2. Fluoxetine 25 mg p.o. daily. 3. Atorvastatin 40 mg p.o. daily. 4. Synthroid 50 mcg p.o. every other day. 5. Metoprolol 25 mg p.o. q.p.m. 6. Omeprazole 20 mg p.o. q.a.m. 7. Finasteride 5 mg p.o. daily. 8. Aspirin 81 mg p.o. daily. 9. Augmentin 875 mg p.o. b.i.d. The patient is advised to crush all his pills and if it is a capsule, open the capsule and ingest the powder. DISPOSITION: Home with home care. CONDITION: Stable. TOTAL TIME SPENT ON DISCHARGE: Equals 50 minutes. [id number]/[facility] #: [id number]
== END 2018-10-26 13:00 | disposition home health service (06) | DRG 393 ==
LOC: ED 00:08 → UNDOADMOB 08:01 → MED 08:01 → OBSVTOIN 14:00 → INTOOBSV 14:00 → ICU 19:34 → MED 19:34 → ICU 10-25 12:52 → MED 10-25 12:52 → UNDOADMOB 10-25 14:00 → OBSVTOIN 10-25 14:00 → INTOOBSV 10-25 14:00 → ICU 10-25 14:00 → MED 10-25 14:00 → ICU 10-25 14:01 → OBSVTOIN 10-25 14:01 → MEDTELE 10-25 14:02 → MED 10-25 14:02 → UNDODISOB 10-26 16:23 → UNDODISIN 10-26 17:20 → MED 11-13 14:23
PROVIDERS: ADMIT Internal Medicine; ATTEND Internal Medicine
PROC: 0D728ZZ Dilation of Middle Esophagus, Via Natural or Artificial Opening Endoscopic (ICD-10-PCS; 2018-10-24)
PROC: 0DD58ZX Extraction of Esophagus, Via Natural or Artificial Opening Endoscopic, Diagnostic (ICD-10-PCS; 2018-10-24)
PROC: 0DC58ZZ Extirpation of Matter from Esophagus, Via Natural or Artificial Opening Endoscopic (ICD-10-PCS; 2018-10-24)
PROC: 0DC58ZZ Extirpation of Matter from Esophagus, Via Natural or Artificial Opening Endoscopic (ICD-10-PCS; principal; 2018-10-24 10:30)
DX: T18.128A Food in esophagus causing other injury, initial encounter (principal); J69.0 Pneumonitis due to inhalation of food and vomit; K22.2 Esophageal obstruction; F03.90 Unspecified dementia, unspecified severity, without behavioral disturbance, psychotic disturbance, mood disturbance, and anxiety; I69.320 Aphasia following cerebral infarction; I10 Essential (primary) hypertension; Z66 Do not resuscitate; K21.9 Gastro-esophageal reflux disease without esophagitis; R09.02 Hypoxemia; M19.90 Unspecified osteoarthritis, unspecified site; L82.1 Other seborrheic keratosis; E03.9 Hypothyroidism, unspecified; X58.XXXA Exposure to other specified factors, initial encounter; Z96.641 Presence of right artificial hip joint; Y92.009 Unspecified place in unspecified non-institutional (private) residence as the place of occurrence of the external cause; Z79.82 Long term (current) use of aspirin; Z79.899 Other long term (current) drug therapy
CPT/HCPCS: 36415; 36600; 71045; 80048; 82803; 83605; 83880; 85025; 87641; 88305; 99156; 99157; 99285; A9270-GY; G8978-GP-CI; G8979-GP-CI; G8980-GP-CI; G8996-GN-CJ; G8997-GN-CJ; G8998-GN-CJ; J0330; J1610; J1644; J1940; J2250; J2543; J2704; J3010; J3490